=== PATIENT | male | born 1945 | race Caucasian/White ===

== ENCOUNTER → 2016-03-16 | Outpatient (CLI) | payer MEDICARE, OTHER ==
[2016-03-16 10:17] LABS: ABSOLUTE BASOPHILS # (AUTO) 0.1 10^3/uL (0.0-0.2); ABSOLUTE EOSINOPHILS # (AUTO) 0.2 10^3/uL (0.0-0.6); ABSOLUTE LYMPHOCYTES (AUTO) 2.2 10^3/uL (0.5-4.7); ABSOLUTE MONOCYTES (AUTO) 0.7 10^3/uL (0.1-1.4); ABSOLUTE NEUT (AUTO) 4.6 10^3/uL (1.7-8.2); BASOPHILS % (AUTO) 0.8 % (0-2); EOSINOPHILS % (AUTO) 2.5 % (0-6); HEMATOCRIT 45.6 % (37.9-51.0); HEMOGLOBIN 14.5 g/dL (13.5-17.0); HGB HCT DIFFERENCE -2.1; LYMPHOCYTES % (AUTO) 28.1 % (13-45); MEAN CORPUSCULAR HEMOGLOBIN 30.2 pg (27.0-33.4); MEAN CORPUSCULAR HGB CONC 31.8 g/dL (32.0-36.0); MEAN CORPUSCULAR VOLUME 95 fl (80-97); MONOCYTES % (AUTO) 9.2 % (3-13); RED CELL DISTRIBUTION WIDTH 13.9 % (11.5-14.0); SEGMENTED NEUTROPHILS % (AUTO) 59.4 % (42-78); WHITE BLOOD COUNT 7.7 10^3/uL (4.0-10.5)
== END ==
LOC: OD 09:48
PROVIDERS: ATTEND Physician Assistant
DX: Z01.812 Encounter for preprocedural laboratory examination (principal); J44.1 Chronic obstructive pulmonary disease with (acute) exacerbation; R05 Cough
CPT/HCPCS: 36415; 85025

== ENCOUNTER 2016-03-24 14:28 | Emergency (ER) | payer MEDICARE, OTHER ==
--- NOTE | 2016-03-24 15:16 | ER Document Report ---
ED Medical Screen (RME) - General Stated Complaint: BACK PAIN Notes: chronic back pain reffered over by dr. garzon of pain management patient had corticosteroid injections on 03/21 now with severe pain b/l sciatica denies UI/SI, saddle anesthesia I have greeted and performed a rapid initial assessment of this patient. A comprehensive ED assessment and evaluation of the patient, analysis of test results and completion of the medical decision making process will be conducted by additional ED providers. TRAVEL OUTSIDE OF THE [place] IN LAST 30 DAYS: No - Related Data Allergies/Adverse Reactions: cephradine [From Velosef] Allergy (Unknown, Verified 09/16/14 10:47) ibuprofen [Ibuprofen] Allergy (Unknown, Verified 09/16/14 10:47) Influenza Virus Vaccines [Influenza Virus Vaccine] Allergy (Verified 09/16/14 10 :47) Past Medical History - Past Medical History Cardiac Medical History: Reports: Hx Coronary Artery Disease, Hx Heart Attack, Hx Hypercholesterolemia, Hx Hypertension Pulmonary Medical History: Reports: Hx Asthma, Hx COPD Denies: Hx Tuberculosis GI Medical History: Reports: Hx Gastroesophageal Reflux Disease Musculoskeltal Medical History: Reports Hx Musculoskeletal Trauma Psychiatric Medical History: Reports: Hx Depression, Hx Post Traumatic Stress Disorder Traumatic Medical History: Reports: Hx Traumatic Brain Injury Past Surgical History: Reports: Hx Adenoidectomy, Hx Cardiac Surgery - Defib, Hx Herniorrhaphy, Hx Internal Defibrillator - ICD placement, replaced battery x3 , Hx Orthopedic Surgery - Right knee, right hand, right foot, Hx Pacemaker, Hx Tonsillectomy - and adenoids - Immunizations Hx Diphtheria, Pertussis, Tetanus Vaccination: Yes
[2016-03-24 17:23] LABS: ABSOLUTE BASOPHILS # (AUTO) 0.1 10^3/uL (0.0-0.2); ABSOLUTE MONOCYTES (AUTO) 1.2 10^3/uL (0.1-1.4); ABSOLUTE NEUT (AUTO) 6.9 10^3/uL (1.7-8.2); BASOPHILS % (AUTO) 0.6 % (0-2); EOSINOPHILS % (AUTO) 0.1 % (0-6); HEMATOCRIT 44.9 % (37.9-51.0); HEMOGLOBIN 14.9 g/dL (13.5-17.0); HGB HCT DIFFERENCE -0.2; LYMPHOCYTES % (AUTO) 27.2 % (13-45); MEAN CORPUSCULAR HGB CONC 33.1 g/dL (32.0-36.0); MEAN CORPUSCULAR VOLUME 94 fl (80-97); MONOCYTES % (AUTO) 10.6 % (3-13); RED CELL DISTRIBUTION WIDTH 14.5 % (11.5-14.0); SEGMENTED NEUTROPHILS % (AUTO) 61.5 % (42-78); WHITE BLOOD COUNT 11.2 10^3/uL (4.0-10.5)
[2016-03-24 18:18] LABS: ALANINE AMINOTRANSFERASE 51 U/L (21-72); ALBUMIN 4.6 g/dL (3.5-5.0); ALKALINE PHOSPHATASE 61 U/L (38-126); ANION GAP 14 (5-19); ASPARTATE AMINO TRANSFERASE 36 U/L (17-59); BILIRUBIN,TOTAL 0.5 mg/dL (0.2-1.3); BLOOD UREA NITROGEN 34 mg/dL (7-20); CALCIUM 9.7 mg/dL (8.4-10.2); CARBON DIOXIDE 21 mmol/L (22-30); CHLORIDE 105 mmol/L (98-107); CREATININE RESULT 1.36 mg/dL (0.52-1.25); GLUCOSE 95 mg/dL (75-110); POTASSIUM 4.7 mmol/L (3.6-5.0); TOTAL PROTEIN 7.7 g/dL (6.3-8.2)
== END 2016-03-24 20:00 | disposition left against medical advice (07) ==
LOC: ER 14:28
DX: M54.9 Dorsalgia, unspecified (principal); G89.29 Other chronic pain; I25.10 Atherosclerotic heart disease of native coronary artery without angina pectoris; I25.2 Old myocardial infarction; E78.00 Pure hypercholesterolemia, unspecified; J45.909 Unspecified asthma, uncomplicated; J44.9 Chronic obstructive pulmonary disease, unspecified; Z95.810 Presence of automatic (implantable) cardiac defibrillator
CPT/HCPCS: 36415; 72132; 80053; 85025; 99281

== ENCOUNTER → 2016-04-13 | Outpatient (CLI) | payer MEDICARE, OTHER ==
[2016-04-13 12:57] LABS: ALANINE AMINOTRANSFERASE 39 U/L (21-72); ALBUMIN 4.3 g/dL (3.5-5.0); ALKALINE PHOSPHATASE 73 U/L (38-126); ANION GAP 10 (5-19); ASPARTATE AMINO TRANSFERASE 36 U/L (17-59); BILIRUBIN,TOTAL 0.6 mg/dL (0.2-1.3); BLOOD UREA NITROGEN 28 mg/dL (7-20); CALCIUM 9.8 mg/dL (8.4-10.2); CARBON DIOXIDE 25 mmol/L (22-30); CHLORIDE 104 mmol/L (98-107); CREATININE RESULT 1.34 mg/dL (0.52-1.25); GLUCOSE 84 mg/dL (75-110); POTASSIUM 4.7 mmol/L (3.6-5.0); SODIUM 139.4 mmol/L (137-145); TOTAL PROTEIN 7.2 g/dL (6.3-8.2)
== END ==
LOC: OD 11:16
PROVIDERS: ATTEND Physician Assistant
DX: R25.2 Cramp and spasm (principal); M79.1 Myalgia
CPT/HCPCS: 36415; 80053

== ENCOUNTER 2016-06-05 14:42 | Emergency (ER) | payer MEDICARE, OTHER ==
[2016-06-05] MEDS ORDERED: ALBUTEROL SULFATE 0.083% NEB 2.5 MG/3 ML AMPUL NEB ONE ×2 (15:21→17:21)
[2016-06-05] MEDS ORDERED: METHYLPREDNISOLONE INJ 125 MG/2 ML SDV IV ONE (15:21)
[2016-06-05] MEDS ORDERED: IPRATROPIUM/ALBUTEROL 0.5-2.5 MG/3 ML AMPUL NEB ONE ×2 (15:21→17:21)
--- NOTE | 2016-06-05 15:24 | ER Document Report ---
ED Respiratory Problem - General Stated Complaint: DIFFICULTY BREATHING Time seen by provider: 15:21 Mode of Arrival: Medic Information source: Patient TRAVEL OUTSIDE OF THE [place] IN LAST 30 DAYS: No - HPI Patient complains to provider of: Cough, Short of breath Onset: Other - 3 weeks, worsening over the past 3 days Duration: Worse/persistent Quality of pain: Achy Severity: Moderate Pain Level: 2 Context: Hx asthma, Hx COPD Short of Breath: Moderate Chest pain/discomfort: Tightness Cough: Productive Sputum amount: Small Sputum color: Yellow Sputum consistency: Mucoid At home treatment: Bronchodilators EMS treatments: Bronchodilators Associated symptoms: Congestion, Cough, Difficulty breathing, Fever, Short of breath, Wheezing Similar symptoms previously: Yes Recently seen / treated by doctor: No Notes: Patient is a 70-year-old male with history of asthma/COPD, who presents to the emergency room complaining of difficulty breathing with chest tightness and productive cough that's been present over the past 3 weeks but worsening over the past 3 days, cough is productive of grayish yellowish colored phlegm, with occasional red streaking, he reports a fever at the beginning of his illness but not currently, he denies any sick contacts, no recent antibiotics or other medications for treatment of symptoms, will repeat has an albuterol inhaler which she has been using at home intermittently, which gives him mild relief of symptoms but he is using it every 30 minutes to hour, he has not been known steroids recently - Related Data Allergies/Adverse Reactions: cephradine [From Velosef] Allergy (Unknown, Verified 09/16/14 10:47) ibuprofen [Ibuprofen] Allergy (Unknown, Verified 09/16/14 10:47) Influenza Virus Vaccines [Influenza Virus Vaccine] Allergy (Verified 09/16/14 10 :47) Past Medical History - General Information source: Patient - Social History Smoking Status: Never Smoker Family History: None - Past Medical History Cardiac Medical History: Reports: Hx Coronary Artery Disease, Hx Heart Attack, Hx Hypercholesterolemia, Hx Hypertension Pulmonary Medical History: Reports: Hx Asthma, Hx COPD Denies: Hx Tuberculosis Renal/ Medical History: Denies: Hx Peritoneal Dialysis GI Medical History: Reports: Hx Gastroesophageal Reflux Disease Musculoskeltal Medical History: Reports Hx Musculoskeletal Trauma Psychiatric Medical History: Reports: Hx Depression, Hx Post Traumatic Stress Disorder Traumatic Medical History: Reports: Hx Traumatic Brain Injury Past Surgical History: Reports: Hx Adenoidectomy, Hx Cardiac Surgery - Defib, Hx Herniorrhaphy, Hx Internal Defibrillator - ICD placement, replaced battery x3 , Hx Orthopedic Surgery - Right knee, right hand, right foot, Hx Pacemaker, Hx Tonsillectomy - and adenoids - Immunizations Hx Diphtheria, Pertussis, Tetanus Vaccination: Yes Review of Systems - Review of Systems Constitutional: Fever EENT: No symptoms reported Cardiovascular: No symptoms reported Respiratory: See HPI Gastrointestinal: No symptoms reported Genitourinary: No symptoms reported Male Genitourinary: No symptoms reported Musculoskeletal: No symptoms reported Skin: No symptoms reported Hematologic/Lymphatic: No symptoms reported Neurological/Psychological: No symptoms reported -: Yes All other systems reviewed and negative Physical Exam - Vital signs Vitals: Resp Pulse Ox 28 H 95 06/05/16 15:15 06/05/16 15:15 Interpretation: Tachycardic - General General appearance: Appears well, Alert - HEENT Head: Normocephalic, Atraumatic Eyes: Normal Pupils: PERRL - Respiratory Respiratory status: No respiratory distress Chest status: Nontender Breath sounds: Productive cough, Wheezing Chest palpation: Normal - Cardiovascular Rhythm: Irregularly irregular, Tachycardia Heart sounds: Normal auscultation Murmur: No - Abdominal Inspection: Normal, Obese Distension: No distension Bowel sounds: Normal Tenderness: Nontender Organomegaly: No organomegaly - Back Back: Normal, Nontender - Extremities General upper extremity: Normal inspection, Nontender, Normal color, Normal ROM , Normal temperature General lower extremity: Normal inspection, Nontender, Normal color, Normal ROM , Normal temperature, Normal weight bearing. No: [place]'s sign - Neurological Neuro grossly intact: Yes Cognition: Normal Orientation: AAOx4 [place] Coma Scale Eye Opening: Spontaneous [place] Coma Scale Verbal: Oriented [place] Coma Scale Motor: Obeys Commands [place] Coma Scale Total: 15 Speech: Normal Motor strength normal: LUE, RUE, LLE, RLE Sensory: Normal - Psychological Associated symptoms: Normal affect, Normal mood - Skin Skin Temperature: Warm Skin Moisture: Dry Skin Color: Normal Course - Re-evaluation Re-evalutation: 06/05/16 18:14 Patient reports feeling much better and wants to go home, lab and imaging findings were discussed with patient at bedside which are consistent with bilateral pneumonia, he was started on antibiotics and steroids, I did discuss the possibility of admission with patient, however he reports that he feels much better and would much rather go home and try antibiotics with steroids and breathing treatments, he was advised to follow-up with his primary care provider in the next 2-3 days, he states he has plenty of albuterol nebulizer treatments at home, he was advised to use these every 4-6 hours, return if symptoms worsen, patient acknowledges understanding and agreement with this plan - Vital Signs Vital signs: Temp Pulse Resp BP Pulse Ox 97.8 F 52 L 20 160/84 H 100 06/05/16 15:52 06/05/16 15:52 06/05/16 17:00 06/05/16 16:01 06/05/16 17:00 - Laboratory Result Diagrams: 06/05/16 15:10 06/05/16 15:10 Laboratory results interpreted by me: 06/05/16 06/05/16 15:10 15:10 WBC 12.6 H RBC 4.31 L RDW 14.6 H Plt Count 135 L Seg Neutrophils % 78.9 H Absolute Neutrophils 10.0 H Glucose 113 H - Diagnostic Test Radiology reviewed: Image reviewed, Reports reviewed - EKG Interpretation by Me EKG shows normal: Sinus rhythm Rate: Normal Rhythm: NSR, PVC's Mounds/QRS: RBBB When compared to previous EKG there are: No significant change Discharge - Discharge Clinical Impression: Pneumonia Qualifiers: Pneumonia type: due to unspecified organism Laterality: bilateral Lung location : lower lobe of lung Qualified Code(s): J18.9 - Pneumonia, unspecified organism Condition: Stable Disposition: HOME, SELF-CARE Instructions: Pneumonia (OM), Chronic Obstructive Lung Disease (OM) Additional Instructions: Follow up with your primary care provider in one to 2 days. Return to the emergency room immediately if symptoms worsen or any additional concerns. Prescriptions: Levofloxacin [Levaquin 750 mg Tablet] 750 mg PO DAILY #5 tablet Prednisone 40 mg PO DAILY #8 tablet
[2016-06-05 15:39] LABS: ABSOLUTE EOSINOPHILS # (AUTO) 0.1 10^3/uL (0.0-0.6); ABSOLUTE LYMPHOCYTES (AUTO) 1.7 10^3/uL (0.5-4.7); ABSOLUTE MONOCYTES (AUTO) 0.9 10^3/uL (0.1-1.4); BASOPHILS % (AUTO) 0.3 % (0-2); EOSINOPHILS % (AUTO) 0.4 % (0-6); HEMATOCRIT 40.6 % (37.9-51.0); HEMOGLOBIN 13.7 g/dL (13.5-17.0); HGB HCT DIFFERENCE 0.5; LYMPHOCYTES % (AUTO) 13.3 % (13-45); MEAN CORPUSCULAR HEMOGLOBIN 31.7 pg (27.0-33.4); MEAN CORPUSCULAR HGB CONC 33.7 g/dL (32.0-36.0); MEAN CORPUSCULAR VOLUME 94 fl (80-97); MONOCYTES % (AUTO) 7.1 % (3-13); RED BLOOD COUNT 4.31 10^6/uL (4.35-5.55); RED CELL DISTRIBUTION WIDTH 14.6 % (11.5-14.0); SEGMENTED NEUTROPHILS % (AUTO) 78.9 % (42-78); WHITE BLOOD COUNT 12.6 10^3/uL (4.0-10.5)
[2016-06-05 15:57] LABS: ALANINE AMINOTRANSFERASE 71 U/L (21-72); ALBUMIN 3.5 g/dL (3.5-5.0); ALKALINE PHOSPHATASE 99 U/L (38-126); ANION GAP 11 (5-19); ASPARTATE AMINO TRANSFERASE 48 U/L (17-59); BILIRUBIN,DIRECT 0.1 mg/dL (0.0-0.4); BILIRUBIN,TOTAL 0.8 mg/dL (0.2-1.3); BLOOD UREA NITROGEN 12 mg/dL (7-20); CALCIUM 9.1 mg/dL (8.4-10.2); CARBON DIOXIDE 30 mmol/L (22-30); CHLORIDE 103 mmol/L (98-107); CREATINE KINASE 56 U/L (55-170); CREATININE RESULT 0.82 mg/dL (0.52-1.25); GLUCOSE 113 mg/dL (75-110); POTASSIUM 4.3 mmol/L (3.6-5.0); SODIUM 144.1 mmol/L (137-145); TOTAL PROTEIN 6.4 g/dL (6.3-8.2)
[2016-06-05 16:08] LABS: CREATINE KINASE MB 0.82 ng/mL (<4.55)
[2016-06-05 16:09] LABS: TROPONIN I < 0.012 ng/mL
[2016-06-05] MEDS ORDERED: LEVOFLOXACIN 750 MG TABLET PO ONE (16:29)
[2016-06-05 17:56] VITALS: BP 160/84
--- NOTE | 2016-06-05 19:03 | EKG REPORT ---
SEVERITY:- ABNORMAL ECG - SINUS RHYTHM MULTIFORM VENTRICULAR PREMATURE COMPLEXES PROBABLE LEFT ATRIAL ABNORMALITY RIGHT BUNDLE BRANCH BLOCK APCs : Confirmed by: Radha Iqbal 05-Jun-2016 19:02:02
== END 2016-06-05 18:51 | disposition home or self-care (01) ==
LOC: ER 14:42
DX: J18.9 Pneumonia, unspecified organism (principal); R00.0 Tachycardia, unspecified; E66.9 Obesity, unspecified; I25.10 Atherosclerotic heart disease of native coronary artery without angina pectoris; E78.00 Pure hypercholesterolemia, unspecified; I10 Essential (primary) hypertension; K21.9 Gastro-esophageal reflux disease without esophagitis; Z88.6 Allergy status to analgesic agent; Z88.7 Allergy status to serum and vaccine; Z87.820 Personal history of traumatic brain injury; Z95.810 Presence of automatic (implantable) cardiac defibrillator; I25.2 Old myocardial infarction
CPT/HCPCS: 93005; 94640 ×2; 99285; 96374; 36415; 87040; 82553; 82550; 85025; 80053; 84484; 71020; 93010; J2930; A9270 ×3; J7620

== ENCOUNTER 2016-06-07 18:31 | Inpatient (IN) | payer MEDICARE, OTHER ==
[2016-06-07] MEDS ORDERED: MAGNESIUM SULFATE/D5W 100 ML IV PRN (19:36)
[2016-06-07] MEDS ORDERED: IPRATROPIUM/ALBUTEROL 0.5-2.5 MG/3 ML AMPUL NEB ONE ×3 (19:36)
[2016-06-07] MEDS ORDERED: METHYLPREDNISOLONE INJ 125 MG/2 ML SDV IV ONE (19:37)
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
[2016-06-07 19:48] LABS: HEMATOCRIT 38.8 % (37.9-51.0); HGB HCT DIFFERENCE 0.2; MEAN CORPUSCULAR HEMOGLOBIN 31.7 pg (27.0-33.4); MEAN CORPUSCULAR HGB CONC 33.4 g/dL (32.0-36.0); MEAN CORPUSCULAR VOLUME 95 fl (80-97); RED CELL DISTRIBUTION WIDTH 15.1 % (11.5-14.0); WHITE BLOOD COUNT 12.8 10^3/uL (4.0-10.5)
[2016-06-07 19:52] LABS: ALANINE AMINOTRANSFERASE 50 U/L (21-72); ALBUMIN 3.4 g/dL (3.5-5.0); ALKALINE PHOSPHATASE 73 U/L (38-126); ANION GAP 14 (5-19); ASPARTATE AMINO TRANSFERASE 29 U/L (17-59); BILIRUBIN,DIRECT 0.3 mg/dL (0.0-0.4); BILIRUBIN,TOTAL 0.4 mg/dL (0.2-1.3); BLOOD UREA NITROGEN 25 mg/dL (7-20); CARBON DIOXIDE 25 mmol/L (22-30); CHLORIDE 108 mmol/L (98-107); CREATINE KINASE 90 U/L (55-170); CREATININE RESULT 1.31 mg/dL (0.52-1.25); GLUCOSE 97 mg/dL (75-110); POTASSIUM 4.5 mmol/L (3.6-5.0); SODIUM 146.9 mmol/L (137-145); TOTAL PROTEIN 6.3 g/dL (6.3-8.2)
[2016-06-07 20:03] LABS: CREATINE KINASE MB 1.81 ng/mL (<4.55)
[2016-06-07 20:08] LABS: TROPONIN I < 0.012 ng/mL
[2016-06-07 20:18] LABS: BASOPHILS % (MANUAL) 0 % (0-2); EOSINOPHILS % (MANUAL) 0 % (0-6); LYMPHOCYTES % (MANUAL) 14 % (13-45); TOTAL CELLS COUNTED 100
[2016-06-07 20:20] LABS: OVALOCYTES SLIGHT; POIKILOCYTOSIS SLIGHT
[2016-06-07 20:21] LABS: ANISOCYTOSIS SLIGHT
[2016-06-07] MEDS ORDERED: PIPERACILLIN/TAZOBACTAM 4.5 GM VIAL IV ONE (20:57)
[2016-06-07 21:01] LABS: VENOUS BLOOD BASE EXCESS -0.4 mmol/L; VENOUS BLOOD HCO3 24.9 mmol/L (20-32); VENOUS BLOOD PCO2 43.2 mmHg (35-63); VENOUS BLOOD PH 7.38 (7.30-7.42)
[2016-06-07] MEDS ORDERED: GLUCAGON,HUMAN RECOMB 1 MG INJ IM PRN (22:53)
[2016-06-07] MEDS ORDERED: DEXTROSE 40% GEL 15 GM TUBE PO PRN ×2 (22:53)
[2016-06-07] MEDS ORDERED: DEXTROSE 50%-WATER 25 GM/50 ML DISP.SYRIN IV PRN ×2 (22:53)
[2016-06-07] MEDS ORDERED: ALBUTEROL SULFATE 0.083% NEB 2.5 MG/3 ML AMPUL NEB PRN (22:54)
[2016-06-07] MEDS ORDERED: GUAIFENESIN SYRP 200 MG/10 ML UDC PO PRN (22:54)
[2016-06-07] MEDS ORDERED: ACETAMINOPHEN 325 MG TABLET PO PRN (22:54)
[2016-06-07] MEDS ORDERED: PHARMACY COMMUNICATION ORDER MC SCH (23:15)
--- NOTE | 2016-06-07 23:31 | PDOC H&P ---
History of Present Illness Admission Date/PCP: 06/07/16 21:41 pcp [facility] Patient complains of: difficulty breathing History of Present Illness: SVETLANA DUFF JR is a 70 year old morbidly obese male with underlying hypertension, posttraumatic stress disorder, history of traumatic brain injury, mild anxiety and depression, without suicidal or homicidal ideation, history of TIA, arthritis, history of myocardial infarction and congestive heart failure, status post AICD implant, along with underlying asthma and daily at bedtime 2 L per nasal cannula O2 dependent COPD who presents to the emergency room for the second time in approximately 48 hours for evaluation of above complaint. discharged home reportedly on prednisone and Levaquin 2 days ago, which he reportedly took as prescribed. However, despite taking his medications, along with more frequent nebulizer treatments, breathing difficulties slowly progressed, in particular with much of any exertion. Cough productive of yellow -green sputum. No fever or chills. Nausea with small amount of emesis 2 days ago; none since then. No diarrhea or dysuria. No chest pain. Mild abdominal discomfort only with the cough. Was in a fair amount of respiratory distress upon initial presentation to the emergency room. Much improved on BiPAP. Has had his Pneumovax; allergic to flu vaccination. Patient has been discussed with emergency room nurse practitioner who evaluated the patient. Documentation made on initial emergency room paperwork of concern for possible suicidal ideation. However, patient adamantly denies this to both myself and the emergency room nurse practitioner. Said he only wanted to be "left alone." Again, adamantly denies suicidal or homicidal ideation now or earlier today. Laboratory results are listed in [employer] and are reviewed. X-ray summary results are listed below, with full report(s) reviewed. . EKG reviewed. And compared to a prior tracing from 2 nights ago. Social history/personal habits: . Lives with . Retired. No tobacco use since the 1970s. No alcohol or illicit drug use. Has daughter. Allergies/adverse reactions are listed in [employer] and are reviewed. Home medications Home medications initially autopopulated into [employer] may not accurately reflect patient's true medications, dosages, and/or frequencies. Medication bottles reviewed and discussed with patient. environmental health technician to reconcile medications. REVIEW OF SYSTEMS: Constitutional: No fever or chills. Eyes: Wears glasses. ENT: No swallowing problems or complaints. Partial hearing loss. No hearing problems or complaints. Pulmonary: See history and present illness. Cardiovascular: No current complaints, including chest pain. Chronic intermittent mild swelling of both lower extremities, right greater than left. Gastrointestinal: See history and present illness. Skin: No current complaints, including rashes. Hematologic: Easy bruising. Neurologic: Chronic peripheral neuropathy, right lower extremity. Musculoskeletal: Joint pain from arthritis. Psychiatric: Mild Anxiety depression; denies suicidal or homicidal ideation. Endocrine: No current complaints, including polyuria. Genitourinary: No current complaints, including dysuria. PHYSICAL EXAMINATION: 6 feet tall. 136.1 kg. BMI 40.7 kg/m. Blood pressure 143/68. Pulse 92 and regular. 97% saturation on BiPAP 12/6, 30% FiO2. Respirations are 24 and unlabored. Temperature not recorded on chart; skin feels normothermic. Morbidly obese otherwise well-developed male who appears a fair number of years younger than his stated age. Pleasant awake alert and cooperative. No obvious distress other than somewhat anxious. Skin is warm and dry. No grossly obvious evidence of rash in areas of skin examined. No subcutaneous nodules palpated. Extensive upper extremity tattoos. ENT: Hearing grossly normal to normal conversation. Tongue midline on protrusion pink and slightly tacky.. Pierced left eyebrow. Eyes: No scleral icterus. Pupils equal and reactive to light at 4 mm. [place] conjunctivae. Neck is supple and nontender to gentle active range of motion and palpation. Midline trachea. No palpable thyroid nodule mass enlargement or tenderness. Lymphatic: No palpable cervical or clavicular nodes. Neck and lymphatic exams limited by patient body habitus. Psychiatric: Reasonable insight into acute and chronic medical issues. Oriented to time location and why here. Lungs: Auscultation reveals equal breath sounds bilaterally. No use of accessory respiratory muscles. Mild bilateral brief early expiratory wheezing. Patient states he normally wheezes virtually every day. Cardiovascular: Heart regular rate and rhythm, without gallop murmur or rub. No carotid or abdominal aortic bruits. Mild bilateral slightly pitting ankle and pedal edema, slightly more noticeable on the right. palpable dorsalis pedis pulses. Abdomen: soft, obese, nontender with positive bowel sounds. Unable to adequately evaluate abdomen for masses or organomegaly due to body habitus. Extremities: Feet are warm and dry. No calf tenderness to compression. No grossly obvious visual evidence of calf swelling. Gentle manipulation of lower extremities fails to reveal any obvious evidence of injury or instability to knees hips or ankles. Neurologic: Moves upper extremities grossly normally. Patellar reflexes absent. Absent Babinski. Light touch is intact at left foot, slightly decreased, right foot; chronic finding, per patient. Dorsiflexion and plantarflexion of feet 5 / 5 and symmetric. E Past Medical History Cardiac Medical History: Reports: Congestive Heart Failure, Coronary Artery Disease, Myocardial Infarction, Hypertension Denies: DVT, Hyperlipidema, Pulmonary Embolism Pulmonary Medical History: Reports: Asthma, Chronic Obstructive Pulmonary Disease (COPD) Denies: Sleep Apnea, Tuberculosis Neurological Medical History: Reports: Other - History of traumatic brain injury. Denies: Hemorrhagic CVA, Ischemic CVA, Seizures Endocrine Medical History: Denies: Diabetes Mellitus Type 1, Diabetes Mellitus Type 2, Hyperthyroidism, Hypothyroidism Renal/ Medical History: Reports: Chronic Kidney Disease GI Medical History: Denies: Cirrhosis, Gastroesophageal Reflux Disease, Hepatitis, Peptic Ulcer Disease Musculoskeltal Medical History: Reports: Arthritis Skin Medical History: Reports: None Psychiatric Medical History: Reports: Depression, General Anxiety Disorder, Post Traumatic Stress Disorder Denies: Alcohol Dependency, Substance Abuse, Tobacco Dependency Traumatic Medical History: Reports: Traumatic Brain Injury Hematology: Reports: None Infectious Medical History: Denies: Clostridium Difficile, Hepatitis B, Hepatitis C, Methicillin- Resistant Staph Aureus Past Surgical History Past Surgical History: Reports: Herniorrhaphy, Internal Defibrillator - ICD placement, replaced battery x3, Orthopedic Surgery - Right knee, right hand, right foot, Pacemaker, Tonsillectomy - and adenoids Social History Information Source: Patient, Emergency Med Personnel, [facility] Records Lives with: Spouse/Significant other Smoking Status: Former Smoker Frequency of Alcohol Use: None Hx Recreational Drug Use: No Drugs: None Hx Prescription Drug Abuse: No - Advance Directive Resuscitation Status: Full Code Surrogate healthcare decision maker:: Family History Family History: None, COPD, Malignancy Parental Family History Reviewed: Yes - mother of ovarian cancer. Father emphysema. Children Family History Reviewed: Yes - Daughter in her sleep after seizure. Sibling(s) Family History Reviewed.: Yes - Brother with multiple medical problems, at young age. Sister of unknown malignancy. Medication/Allergy Home Medications: Metoprolol Tartrate 50 mg PO BID 11/07/11 Temazepam 30 mg PO HSP PRN 09/16/14 Levofloxacin [Levaquin 750 mg Tablet] 750 mg PO DAILY #5 tablet 06/05/16 Prednisone 40 mg PO DAILY #8 tablet 06/05/16 Albuterol Sulfate [Ventolin HFA MDI 18 GM] 2 puff IH Q4HP PRN 06/08/16 Budesonide/Formoterol Fumarate [Symbicort HFA 160-4.5 mcg Inhaler 6 gm] 2 puff IH BID 06/08/16 Cyclobenzaprine HCl 10 mg PO TID 06/08/16 Gabapentin [Neurontin] 600 mg PO TID 06/08/16 Naproxen 500 mg PO BID 06/08/16 Oxycodone HCl [Oxycodone HCl 10 MG Tablet] 20 mg PO 5XDP PRN 06/08/16 Allergies/Adverse Reactions: cephradine [From Velose[place]] Allergy (Unknown, Verified 06/07/16 22:51) ibuprofen [Ibuprofen] Allergy (Unknown, Verified 06/07/16 22:51) Influenza Virus Vaccines [Influenza Virus Vaccine] Allergy (Verified 06/07/16 20 :13) Physical Exam Vital Signs: Temp Pulse Resp BP Pulse Ox 17 138/80 H 96 06/07/16 20:56 06/07/16 21:21 06/07/16 21:21 Results Impressions: Chest X-Ray 06/07/16 19:35 IMPRESSION: NO ACUTE RADIOGRAPHIC FINDING IN THE CHEST. INTERVAL RESOLUTION PREVIOUS IDENTIFIED AIRSPACE DISEASE. Assessment & Plan - Diagnosis (1) Morbid obesity with BMI of 40.0-44.9, adult Is this a current diagnosis for this admission?: Yes (2) Hypernatremia Is this a current diagnosis for this admission?: YesPlan: Half-normal saline. Follow-up chemistry. (3) Acute and chronic respiratory failure with hypercapnia Is this a current diagnosis for this admission?: YesPlan: Patient will be admitted under COPD exacerbation and asthma exacerbation protocol. Incentive spirometry twice a day. Scheduled DuoNeb's. PRN albuterol nebs Solu-Medrol Prevacid for gastritis prophylaxis. Antibiotics will consist of Zosyn and intravenous Zithromax.. I strongly encouraged patient to notify staff should patient feel that his breathing is worsening. Patient is a full code. I have strongly encouraged patient not to get out of bed without notifying staff , , to avoid a fall with injury. Knee high SCDs for DVT prophylaxis, along with subcutaneous heparin. Impression and plans were discussed with patient, who concurs. Time spent in evaluation and management of patient: 67 minutes. (4) Asthma exacerbation Is this a current diagnosis for this admission?: Yes (5) Chronic kidney disease, stage III (moderate) Is this a current diagnosis for this admission?: YesPlan: Follow-up chemistry. (6) PTSD (post-traumatic stress disorder) Is this a current diagnosis for this admission?: YesPlan: Resume home medications as appropriate once these have been determined and reviewed. (7) COPD exacerbation Is this a current diagnosis for this admission?: Yes - Inpatient Certification Based on my medical assessment, after consideration of the patient's comorbidities, presenting symptoms, or acuity I expect that the services needed warrant INPATIENT care.: Yes I certify that my determination is in accordance with my understanding of Medicare's requirements for reasonable and necessary INPATIENT services [42 CFR 412.3e].: Yes Medical Necessity: Need Close Monitoring Due to Risk of Patient Decompensation, Need For IV Fluids, Need For Continuous Telemetry Monitoring, Need for Nebulizer Therapy and Monitoring of Response, Need for IV Antibiotics, Risk of Complication if Not Cared For in Hospital, Risk of Diagnosis Which Will Require Inpatient Eval/Care/Monitoring Post Hospital Care: D/C or Transfer Summary
[2016-06-07 23:43] LABS: ADD ON TESTING BLD IN LAB ACKNOWLEDGE
[2016-06-07] MEDS ORDERED: AZITHROMYCIN INJ 500 MG VIAL IV PRN (23:55)
[2016-06-08] MEDS ORDERED: AZITHROMYCIN 500 MG in DEXTROSE 5%-WATER 250 ML IV ONE ×2
[2016-06-08] MEDS ORDERED: PIPERACILLIN/TAZOBACTAM 4.5 GM VIAL IV PRN (00:10)
[2016-06-08 01:12] LABS: VENOUS BLOOD HCO3 23.6 mmol/L (20-32); VENOUS BLOOD PCO2 39.1 mmHg (35-63); VENOUS BLOOD PH 7.4 (7.30-7.42)
[2016-06-08] MEDS: 1/2 NORMAL SALINE 1,000 ML IV PRN ×3 (01:23→21:27)
[2016-06-08] MEDS ORDERED: METHYLPREDNISOLONE SOD SUCC IV SCH (02:00)
[2016-06-08] MEDS ORDERED: METHYLPREDNISOLONE INJ 125 MG/2 ML SDV INJ PRN (02:00)
[2016-06-08] MEDS ORDERED: WATER IV SCH (02:00)
[2016-06-08] MEDS ORDERED: DEXTROSE 5% IV SCH (02:00)
[2016-06-08] MEDS ORDERED: PIPERACILLIN/TAZOBACTAM 4.5 GM VIAL IV ONE (02:57)
[2016-06-08] MEDS: PIPERACILLIN SODIUM/TAZOBACTAM 4.5 GM in NORMAL SALINE 100 ML IV SCH ×4 (03:17→22:13)
[2016-06-08] MEDS: HEPARIN SOD (PORCINE) 5,000 UNIT/ML 1 ML SYRINGE SUBCUT SCH ×3 (05:26→21:18)
[2016-06-08] MEDS: LANSOPRAZOLE 30 MG TAB.RAP.DR PO SCH ×2 (05:26→17:01)
[2016-06-08 07:20] LABS: HEMATOCRIT 41.8 % (37.9-51.0); HGB HCT DIFFERENCE 0.2; MEAN CORPUSCULAR HEMOGLOBIN 31.9 pg (27.0-33.4); MEAN CORPUSCULAR HGB CONC 33.4 g/dL (32.0-36.0); MEAN CORPUSCULAR VOLUME 95 fl (80-97); RED BLOOD COUNT 4.38 10^6/uL (4.35-5.55); RED CELL DISTRIBUTION WIDTH 14.9 % (11.5-14.0); WHITE BLOOD COUNT 10.6 10^3/uL (4.0-10.5)
[2016-06-08 07:38] LABS: ANION GAP 13 (5-19); BLOOD UREA NITROGEN 24 mg/dL (7-20); CARBON DIOXIDE 27 mmol/L (22-30); CHLORIDE 104 mmol/L (98-107); CREATININE RESULT 1.08 mg/dL (0.52-1.25); GLUCOSE 137 mg/dL (75-110); POTASSIUM 4.7 mmol/L (3.6-5.0); SODIUM 143.7 mmol/L (137-145)
--- NOTE | 2016-06-08 07:40 | EKG REPORT ---
SEVERITY:- ABNORMAL ECG - SINUS RHYTHM MULTIPLE ATRIAL PREMATURE COMPLEXES RIGHT BUNDLE BRANCH BLOCK : Confirmed by: Silvia Garcia MD 08-Jun-2016 07:39:42
[2016-06-08 08:30] LABS: BAND NEUTROPHILS % (MANUAL) 2 % (3-5); BASOPHILS % (MANUAL) 0 % (0-2); EOSINOPHILS % (MANUAL) 0 % (0-6); LYMPHOCYTES % (MANUAL) 14 % (13-45); POLYCHROMASIA 1+; TOTAL CELLS COUNTED 100; TOXIC GRANULATION SLIGHT
[2016-06-08] MEDS: IPRATROPIUM/ALBUTEROL 0.5-2.5 MG/3 ML AMPUL NEB SCH ×3 (08:36→20:00)
[2016-06-08] MEDS: METHYLPREDNISOLONE INJ 40 MG/1 ML SDV IV SCH ×2 (11:37→17:02)
[2016-06-08] MEDS ORDERED: (PENDING PHARMACY ID) (Oxycodone Hcl [Oxycodone Hcl 10 Mg Tablet] 20 MG) PO PRN (13:53)
[2016-06-08] MEDS ORDERED: (PENDING PHARMACY ID) (Temazepam [Temazepam] 30 MG) PO PRN (13:53)
--- NOTE | 2016-06-08 13:53 | PDOC PROGRESS REPORT ---
Subjective Progress Note for:: 06/08/16 - Subjective:: This is a follow-up visit for COPD exacerbation. Patient states he feels slightly improved today. He thinks that his right lower extremity is slightly larger than his left due to swelling. He denies any current chest pain. Physical Exam Vital Signs: Temp Pulse Resp BP Pulse Ox 97.6 F 86 22 H 156/72 H 97 06/08/16 11:38 06/08/16 11:38 06/08/16 11:38 06/08/16 11:38 06/08/16 11:38 Intake & Output 06/07/16 06/08/16 06/09/16 06:59 06:59 06:59 Intake Total 550 Output Total 1100 Balance -550 Weight 144 kg PHYSICAL EXAM: GENERAL: This is a well-developed well-nourished morbidly obese white male resting in bed no acute distress. HEART: Regular rate and rhythm. No murmurs rubs or gallops. LUNGS: Occasional expiratory wheezes. Largely course especially in the upper lung elizabeth with equal rise and fall of the chest. ABDOMEN: Soft, nontender, nondistended obese with normoactive bowel sounds EXTREMITIES: No clubbing cyanosis. trace edema. 2+ peripheral pulses. NEURO: Awake, alert, oriented x3. Cranial nerves II through XII grossly intact. PSYCH: Normal affect. Results Laboratory Results: 06/08/16 06:40 06/08/16 06:40 06/08/16 06/08/16 06/08/16 01:02 06:40 06:40 WBC 10.6 H RBC 4.38 Hgb 14.0 Hct 41.8 MCV 95 MCH 31.9 MCHC 33.4 RDW 14.9 H Plt Count 182 Seg Neutrophils % Not Reportable Lymphocytes % Not Reportable Monocytes % Not Reportable Eosinophils % Not Reportable Basophils % Not Reportable Absolute Neutrophils Not Reportable Absolute Lymphocytes Not Reportable Absolute Monocytes Not Reportable Absolute Eosinophils Not Reportable Absolute Basophils Not Reportable VBG pH 7.40 VBG pCO2 39.1 VBG HCO3 23.6 VBG Base Excess -1.0 Sodium 143.7 Potassium 4.7 Chloride 104 Carbon Dioxide 27 Anion Gap 13 BUN 24 H Creatinine 1.08 Est GFR ( Amer) > 60 Est GFR (Non-Af Amer) > 60 Glucose 137 H Calcium 9.0 Impressions: Chest X-Ray 06/07/16 19:35 IMPRESSION: NO ACUTE RADIOGRAPHIC FINDING IN THE CHEST. INTERVAL RESOLUTION PREVIOUS IDENTIFIED AIRSPACE DISEASE. Assessment & Plan - Diagnosis (1) Acute and chronic respiratory failure with hypercapnia Plan: Patient feels slightly better. He continues on oxygen at 4-5 L/m. Continue nebulizer treatments as scheduled continue steroids at 40 mg every 8 hours. If he is improved by tomorrow we'll change this to every 12. Continue various home inhalers. (2) COPD exacerbation Plan: Management as per #1 (3) Pneumonia Qualifiers: Pneumonia type: due to unspecified organism Laterality: bilateral Lung location: unspecified part of lung Qualified Code(s): J18.9 - Pneumonia, unspecified organism Plan: Patient states he was recently diagnosed with bilateral pneumonia. X-ray here is clear of infiltrates. Continue azithromycin and Zosyn. Reconsider going back to Levaquin tomorrow. (4) Opiate dependence, continuous Plan: Patient has chronic back pain for which he takes opioids will resume his home medications. (5) Chronic kidney disease, stage III (moderate) Is this a current diagnosis for this admission?: Yes (6) Morbid obesity with BMI of 40.0-44.9, adult Is this a current diagnosis for this admission?: YesPlan: Weight loss through dietary changes. - Time Time Spent with patient: 15-24 minutes - Inpatient Certification Medical Necessity: Need Close Monitoring Due to Risk of Patient Decompensation
[2016-06-08] MEDS ORDERED: TEMAZEPAM 15 MG CAPSULE PO PRN (14:07)
[2016-06-08] MEDS: CYCLOBENZAPRINE HCL 10 MG TABLET PO SCH ×2 (14:18→17:01)
[2016-06-08] MEDS: OXYCODONE HCL IR 5 MG TABLET PO PRN ×2 (14:18→21:22)
[2016-06-08] MEDS: BUDESONIDE/FORMOTEROL 160-4.5 MCG 60 PUFF/6 GM MDI IH SCH (17:01)
[2016-06-08] MEDS: INSULIN LISPRO 100 UNIT/ML 3 ML VIAL SUBCUT PRN (17:16)
[2016-06-08] MEDS ORDERED: METOPROLOL TARTRATE 25 MG TABLET PO SCH (18:00)
[2016-06-08] MEDS: GABAPENTIN 300 MG CAPSULE PO SCH (21:19)
[2016-06-08] MEDS: METOPROLOL TARTRATE 50 MG TABLET PO SCH (21:20)
[2016-06-08] MEDS ORDERED: AZITHROMYCIN 500 MG in DEXTROSE 5%-WATER 250 ML IV SCH (22:00)
[2016-06-09] MEDS: OXYCODONE HCL IR 5 MG TABLET PO PRN ×4 (02:10→19:43)
[2016-06-09] MEDS: METHYLPREDNISOLONE INJ 40 MG/1 ML SDV IV SCH ×4 (02:11→21:19)
[2016-06-09] MEDS: PIPERACILLIN SODIUM/TAZOBACTAM 4.5 GM in NORMAL SALINE 100 ML IV SCH ×2 (02:11→08:19)
[2016-06-09] MEDS: LANSOPRAZOLE 30 MG TAB.RAP.DR PO SCH ×2 (06:18→17:43)
[2016-06-09] MEDS: HEPARIN SOD (PORCINE) 5,000 UNIT/ML 1 ML SYRINGE SUBCUT SCH ×3 (06:18→21:19)
[2016-06-09] MEDS: GABAPENTIN 300 MG CAPSULE PO SCH ×3 (06:18→21:10)
[2016-06-09] MEDS: IPRATROPIUM/ALBUTEROL 0.5-2.5 MG/3 ML AMPUL NEB SCH ×3 (07:38→20:09)
[2016-06-09] MEDS: METOPROLOL TARTRATE 50 MG TABLET PO SCH ×2 (09:19→21:10)
[2016-06-09] MEDS: CYCLOBENZAPRINE HCL 10 MG TABLET PO SCH ×3 (09:19→17:43)
[2016-06-09] MEDS: BUDESONIDE/FORMOTEROL 160-4.5 MCG 60 PUFF/6 GM MDI IH SCH ×2 (09:20→17:43)
[2016-06-09] MEDS ORDERED: LEVOFLOXACIN 500 MG TABLET PO ONE (11:00)
--- NOTE | 2016-06-09 11:01 | PDOC PROGRESS REPORT ---
Subjective Progress Note for:: 06/09/16 Subjective:: This is a follow-up visit for COPD exacerbation. Patient states he feels slightly improved today. No acute events overnight. He has been ambulating around the room and feels slightly short of breath when he overexerts himself. Physical Exam Vital Signs: Temp Pulse Resp BP Pulse Ox 97.5 F 85 16 156/75 H 97 06/09/16 07:21 06/09/16 07:38 06/09/16 07:38 06/09/16 07:21 06/09/16 07:38 Intake & Output 06/08/16 06/09/16 06/10/16 06:59 06:59 06:59 Intake Total 550 3767 Output Total 1100 240 Balance -550 3527 Weight 144 kg 143.8 kg PHYSICAL EXAM: GENERAL: This is a well-developed well-nourished morbidly obese white male resting in bed no acute distress. HEART: Regular rate and rhythm. No murmurs rubs or gallops. LUNGS: Occasional expiratory wheezes. Largely course especially in the upper lung elizabeth with equal rise and fall of the chest. ABDOMEN: Soft, nontender, nondistended obese with normoactive bowel sounds EXTREMITIES: No clubbing cyanosis. trace edema. 2+ peripheral pulses. NEURO: Awake, alert, oriented x3. Cranial nerves II through XII grossly intact. PSYCH: Normal affect. Results Laboratory Results: 06/08/16 06:40 06/08/16 06:40 Impressions: Chest X-Ray 06/07/16 19:35 IMPRESSION: NO ACUTE RADIOGRAPHIC FINDING IN THE CHEST. INTERVAL RESOLUTION PREVIOUS IDENTIFIED AIRSPACE DISEASE. Assessment & Plan - Diagnosis (1) Acute and chronic respiratory failure with hypercapnia Is this a current diagnosis for this admission?: YesPlan: Patient feels slightly better. He continues on oxygen at 2 L/m. Continue nebulizer treatments as scheduled. Continue steroids at 40 mg every 12 hours. Continue various home inhalers. (2) COPD exacerbation Is this a current diagnosis for this admission?: YesPlan: Management as per #1 (3) Pneumonia Qualifiers: Pneumonia type: due to unspecified organism Laterality: bilateral Lung location: unspecified part of lung Qualified Code(s): J18.9 - Pneumonia, unspecified organism Plan: Patient states he was recently diagnosed with bilateral pneumonia. X-ray here is clear of infiltrates. Discontinue azithromycin and Zosyn. Resume Levaquin at 500 by mouth today (4) Opiate dependence, continuous Plan: Patient has chronic back pain for which he takes opioids continue home medications. (5) Chronic kidney disease, stage III (moderate) Plan: Stable (6) Morbid obesity with BMI of 40.0-44.9, adult Is this a current diagnosis for this admission?: YesPlan: Weight loss through dietary changes. - Time Time Spent with patient: 15-24 minutes - Inpatient Certification Medical Necessity: Need Close Monitoring Due to Risk of Patient Decompensation
[2016-06-09] MEDS: INSULIN LISPRO 100 UNIT/ML 3 ML VIAL SUBCUT PRN (18:25)
[2016-06-10] MEDS: METHYLPREDNISOLONE INJ 40 MG/1 ML SDV IV SCH ×3 (02:26→21:37)
[2016-06-10] MEDS: OXYCODONE HCL IR 5 MG TABLET PO PRN ×4 (02:27→20:28)
[2016-06-10] MEDS: HEPARIN SOD (PORCINE) 5,000 UNIT/ML 1 ML SYRINGE SUBCUT SCH ×3 (05:23→21:37)
[2016-06-10] MEDS: LANSOPRAZOLE 30 MG TAB.RAP.DR PO SCH ×2 (05:23→17:05)
[2016-06-10] MEDS: GABAPENTIN 300 MG CAPSULE PO SCH ×3 (05:23→21:37)
[2016-06-10 05:49] LABS: HEMATOCRIT 41.3 % (37.9-51.0); HEMOGLOBIN 13.9 g/dL (13.5-17.0); HGB HCT DIFFERENCE 0.4; MEAN CORPUSCULAR HEMOGLOBIN 31.8 pg (27.0-33.4); MEAN CORPUSCULAR HGB CONC 33.6 g/dL (32.0-36.0); MEAN CORPUSCULAR VOLUME 95 fl (80-97); RED BLOOD COUNT 4.37 10^6/uL (4.35-5.55); RED CELL DISTRIBUTION WIDTH 15.1 % (11.5-14.0); WHITE BLOOD COUNT 10.9 10^3/uL (4.0-10.5)
[2016-06-10 06:03] LABS: ANION GAP 12 (5-19); BLOOD UREA NITROGEN 34 mg/dL (7-20); CALCIUM 9.1 mg/dL (8.4-10.2); CARBON DIOXIDE 27 mmol/L (22-30); CHLORIDE 103 mmol/L (98-107); CREATININE RESULT 1.21 mg/dL (0.52-1.25); GLUCOSE 128 mg/dL (75-110); MAGNESIUM 2.5 mg/dL (1.6-2.3); POTASSIUM 5.1 mmol/L (3.6-5.0); SODIUM 142.2 mmol/L (137-145)
[2016-06-10 07:09] LABS: BAND NEUTROPHILS % (MANUAL) 1 % (3-5); BASOPHILS % (MANUAL) 0 % (0-2); EOSINOPHILS % (MANUAL) 0 % (0-6); LYMPHOCYTES % (MANUAL) 10 % (13-45); TOTAL CELLS COUNTED 100
[2016-06-10 07:10] LABS: ANISOCYTOSIS SLIGHT; HYPOCHROMASIA SLIGHT
[2016-06-10 07:11] LABS: PLATELET CLUMPS PRESENT
[2016-06-10] MEDS: IPRATROPIUM/ALBUTEROL 0.5-2.5 MG/3 ML AMPUL NEB SCH ×3 (08:38→20:10)
[2016-06-10] MEDS: LEVOFLOXACIN 500 MG TABLET PO SCH (09:53)
[2016-06-10] MEDS: METOPROLOL TARTRATE 50 MG TABLET PO SCH ×2 (09:53→21:37)
[2016-06-10] MEDS: BUDESONIDE/FORMOTEROL 160-4.5 MCG 60 PUFF/6 GM MDI IH SCH ×2 (09:54→17:05)
[2016-06-10] MEDS: CYCLOBENZAPRINE HCL 10 MG TABLET PO SCH ×3 (09:54→17:05)
--- NOTE | 2016-06-10 11:00 | PDOC PROGRESS REPORT ---
Subjective Progress Note for:: 06/10/16 Subjective:: This is a follow-up visit for COPD exacerbation. Patient states he feels improved today. No acute events overnight. He has been ambulating around the room and feels that he is doing well with that. Physical Exam Vital Signs: Temp Pulse Resp BP Pulse Ox 97.8 F 88 16 144/72 H 96 06/10/16 08:08 06/10/16 08:38 06/10/16 08:38 06/10/16 08:08 06/10/16 08:38 Intake & Output 06/09/16 06/10/16 06/11/16 06:59 06:59 06:59 Intake Total 3767 1955 Output Total 240 Balance 3527 195 Weight 143.8 kg 142.9 kg PHYSICAL EXAM: GENERAL: This is a well-developed well-nourished morbidly obese white male resting in bed no acute distress. HEART: Regular rate and rhythm. No murmurs rubs or gallops. LUNGS: Clear in the upper lung field slightly diminished at the bases bilaterally with equal rise and fall of the chest. ABDOMEN: Soft, nontender, nondistended obese with normoactive bowel sounds EXTREMITIES: No clubbing cyanosis. trace edema. 2+ peripheral pulses. NEURO: Awake, alert, oriented x3. Cranial nerves II through XII grossly intact. PSYCH: Normal affect. Results Laboratory Results: 06/10/16 04:13 06/10/16 04:13 06/10/16 06/10/16 04:13 04:13 WBC 10.9 H RBC 4.37 Hgb 13.9 Hct 41.3 MCV 95 MCH 31.8 MCHC 33.6 RDW 15.1 H Plt Count 178 Seg Neutrophils % Not Reportable Lymphocytes % Not Reportable Monocytes % Not Reportable Eosinophils % Not Reportable Basophils % Not Reportable Absolute Neutrophils Not Reportable Absolute Lymphocytes Not Reportable Absolute Monocytes Not Reportable Absolute Eosinophils Not Reportable Absolute Basophils Not Reportable Sodium 142.2 Potassium 5.1 H Chloride 103 Carbon Dioxide 27 Anion Gap 12 BUN 34 H Creatinine 1.21 Est GFR ( Amer) > 60 Est GFR (Non-Af Amer) 59 L Glucose 128 H Calcium 9.1 Magnesium 2.5 H Impressions: Chest X-Ray 06/07/16 19:35 IMPRESSION: NO ACUTE RADIOGRAPHIC FINDING IN THE CHEST. INTERVAL RESOLUTION PREVIOUS IDENTIFIED AIRSPACE DISEASE. Assessment & Plan - Diagnosis (1) Acute and chronic respiratory failure with hypercapnia Is this a current diagnosis for this admission?: YesPlan: Patient feels slightly better. He continues on oxygen at 2 L/m. Continue nebulizer treatments as scheduled. Continue steroids at 40 mg every 12 hours. Change to by mouth prednisone in the morning. Continue various home inhalers. (2) COPD exacerbation Is this a current diagnosis for this admission?: YesPlan: Management as per #1 ambulate halls today. (3) Pneumonia Qualifiers: Pneumonia type: due to unspecified organism Laterality: bilateral Lung location: unspecified part of lung Qualified Code(s): J18.9 - Pneumonia, unspecified organism Plan: Patient states he was recently diagnosed with bilateral pneumonia. X-ray here is clear of infiltrates. Discontinue azithromycin and Zosyn. Continue Levaquin at 500 by mouth today (4) Opiate dependence, continuous Plan: Patient has chronic back pain for which he takes opioids continue home medications. (5) Chronic kidney disease, stage III (moderate) Is this a current diagnosis for this admission?: YesPlan: Stable (6) Morbid obesity with BMI of 40.0-44.9, adult Is this a current diagnosis for this admission?: YesPlan: Weight loss through dietary changes. - Time Time Spent with patient: 15-24 minutes - Inpatient Certification Medical Necessity: Need Close Monitoring Due to Risk of Patient Decompensation - Anticipate discharge tomorrow if patient is still doing well.
[2016-06-11] MEDS: OXYCODONE HCL IR 5 MG TABLET PO PRN ×2 (03:09→07:53)
[2016-06-11] MEDS: GABAPENTIN 300 MG CAPSULE PO SCH (05:12)
[2016-06-11] MEDS: HEPARIN SOD (PORCINE) 5,000 UNIT/ML 1 ML SYRINGE SUBCUT SCH (05:12)
[2016-06-11] MEDS: LANSOPRAZOLE 30 MG TAB.RAP.DR PO SCH (05:12)
[2016-06-11] MEDS: IPRATROPIUM/ALBUTEROL 0.5-2.5 MG/3 ML AMPUL NEB SCH ×2 (07:39→13:38)
[2016-06-11 08:15] VITALS: BP 150/83
[2016-06-11] MEDS ORDERED: PREDNISONE 20 MG TABLET PO SCH (10:00)
[2016-06-11] MEDS: CYCLOBENZAPRINE HCL 10 MG TABLET PO SCH (10:11)
[2016-06-11] MEDS: LEVOFLOXACIN 500 MG TABLET PO SCH (10:12)
[2016-06-11] MEDS: METOPROLOL TARTRATE 50 MG TABLET PO SCH (10:12)
[2016-06-11] MEDS: BUDESONIDE/FORMOTEROL 160-4.5 MCG 60 PUFF/6 GM MDI IH SCH (10:13)
--- NOTE | 2016-06-11 10:32 | PDOC DISCHARGE SUMMARY ---
General - Admit/Disc Date/PCP Admission Date/Primary Care Provider: 06/07/16 22:54 - Discharge Diagnosis (1) Acute and chronic respiratory failure with hypercapnia Summary: Patient's symptoms secondary to COPD exacerbation he did well and is being discharged home to continue his Levaquin and on a prednisone taper. To continue his oxygen at night. He does not need to have it during the day unless it is for comfort. [facility]up [facility]-2 weeks (2) COPD exacerbation Summary: Continue prednisone taper and antibiotics. Management as above. (3) Pneumonia Summary: Complete course of antibiotics. For total of 10 days. He already has his outpatient prescription. (4) Opiate dependence, continuous Summary: Resume home medications. (5) Chronic kidney disease, stage III (moderate) Summary: Stable. Follow-up with [facility] (6) Morbid obesity with BMI of 40.0-44.9, adult Summary: Weight loss through dietary changes and exercise is recommended as tolerated. - Additional Information Resuscitation Status: Full Code Discharge Diet: Cardiac Discharge Activity: Activity As Tolerated Home Medications: Metoprolol Tartrate 50 mg PO BID 11/07/11 Temazepam 30 mg PO HSP PRN 09/16/14 Levofloxacin [Levaquin 750 mg Tablet] 750 mg PO DAILY #5 tablet 06/05/16 Albuterol Sulfate [Ventolin HFA MDI 18 GM] 2 puff IH Q4HP PRN 06/08/16 Budesonide/Formoterol Fumarate [Symbicort HFA 160-4.5 mcg Inhaler 6 gm] 2 puff IH BID 06/08/16 Cyclobenzaprine HCl 10 mg PO TID 06/08/16 Gabapentin [Neurontin] 600 mg PO TID 06/08/16 Naproxen 500 mg PO BID 06/08/16 Oxycodone HCl [Oxycodone HCl 10 MG Tablet] 20 mg PO 5XDP PRN 06/08/16 Guaifenesin [Robitussin Syrup 200 mg/10 ml Ud Cup] 200 mg PO Q4HP PRN udc 06/11 Prednisone [Deltasone 20 mg Tablet] 40 mg PO ASDIR #15 tablet 06/11/16 History of Present Illness History of Present Illness: History of present illness as per Dr. Matias: Patient complains of: difficulty breathing History of Present Illness: SVETLANA DUFF JR is a 70 year old morbidly obese male with underlying hypertension, posttraumatic stress disorder, history of traumatic brain injury, mild anxiety and depression, without suicidal or homicidal ideation, history of TIA, arthritis, history of myocardial infarction and congestive heart failure, status post AICD implant, along with underlying asthma and daily at bedtime 2 L per nasal cannula O2 dependent COPD who presents to the emergency room for the second time in approximately 48 hours for evaluation of above complaint. discharged home reportedly on prednisone and Levaquin 2 days ago, which he reportedly took as prescribed. However, despite taking his medications, along with more frequent nebulizer treatments, breathing difficulties slowly progressed, in particular with much of any exertion. Cough productive of yellow -green sputum. No fever or chills. Nausea with small amount of emesis 2 days ago; none since then. No diarrhea or dysuria. No chest pain. Mild abdominal discomfort only with the cough. Was in a fair amount of respiratory distress upon initial presentation to the emergency room. Much improved on BiPAP. Has had his Pneumovax; allergic to flu vaccination. Patient has been discussed with emergency room nurse practitioner who evaluated the patient. Documentation made on initial emergency room paperwork of concern for possible suicidal ideation. However, patient adamantly denies this to both myself and the emergency room nurse practitioner. Said he only wanted to be "left alone." Again, adamantly denies suicidal or homicidal ideation now or earlier today. Hospital Course Hospital Course: Patient presented in respiratory distress. He was initially placed on bilevel Pap. He did well with this and was off of it by the next morning. His respiratory failure is due to COPD exacerbation and recovering from a recently diagnosed pneumonia. Patient was treated here with nebulizer treatments, IV steroids, antibiotics, and oxygen/bilevel Pap. Overall he did quite well. He was able to ambulate the halls. So without oxygen and on room air he was satting in the low to mid 90s. He is felt to be stable and ready for discharge. [facility] And complete his outpatient antibiotics as well as a new prescription for prednisone taper. Physical Exam Vital Signs: Temp Pulse Resp BP Pulse Ox 97.7 F 41 L 16 150/83 H 92 06/11/16 07:53 06/11/16 07:53 06/11/16 07:53 06/11/16 07:53 04/23/17 07:53 Intake & Output 06/10/16 06/11/16 06/12/16 06:59 06:59 06:59 Intake Total 1955 2086 Balance 1955 2086 Weight 142.9 kg 141.9 kg PHYSICAL EXAM: GENERAL: This is a well-developed well-nourished morbidly obese white male resting in bed no acute distress. HEART: Regular rate and rhythm. No murmurs rubs or gallops. LUNGS: Clear in the upper lung field slightly diminished at the bases bilaterally with equal rise and fall of the chest. ABDOMEN: Soft, nontender, nondistended obese with normoactive bowel sounds EXTREMITIES: No clubbing cyanosis. trace edema at the ankles bilaterally. 2+ peripheral pulses. NEURO: Awake, alert, oriented x3. Cranial nerves II through XII grossly intact. PSYCH: Normal affect. Results Laboratory Results: 06/10/16 04:13 06/10/16 04:13 Impressions: Chest X-Ray 06/07/16 19:35 IMPRESSION: NO ACUTE RADIOGRAPHIC FINDING IN THE CHEST. INTERVAL RESOLUTION PREVIOUS IDENTIFIED AIRSPACE DISEASE. Qualifiers PATEINT BEING DISCHARGED WITH ANY OF THE FOLLOWING DIAGNOSIS?: No Plan Time Spent: Less than 30 Minutes
== END 2016-06-11 12:50 | disposition home or self-care (01) | DRG 190 ==
LOC: ER 18:31 → UNDOADMIN 21:41 → EH 21:41 → 3W 06-08 00:58
PROVIDERS: ADMIT Family Medicine; ATTEND Family Medicine
PROC: 5A09457 Assistance with Respiratory Ventilation, 24-96 Consecutive Hours, Continuous Positive Airway Pressure (ICD-10-PCS; principal; 2016-06-07)
PROC: 3E0F73Z Introduction of Anti-inflammatory into Respiratory Tract, Via Natural or Artificial Opening (ICD-10-PCS; 2016-06-08)
DX: J44.1 Chronic obstructive pulmonary disease with (acute) exacerbation (principal); J96.22 Acute and chronic respiratory failure with hypercapnia; J18.9 Pneumonia, unspecified organism; J45.901 Unspecified asthma with (acute) exacerbation; F11.20 Opioid dependence, uncomplicated; I13.0 Hypertensive heart and chronic kidney disease with heart failure and stage 1 through stage 4 chronic kidney disease, or unspecified chronic kidney disease; Z68.41 Body mass index [BMI] 40.0-44.9, adult; E87.0 Hyperosmolality and hypernatremia; N18.3 Chronic kidney disease, stage 3 (moderate); I50.9 Heart failure, unspecified; E66.01 Morbid (severe) obesity due to excess calories; F43.10 Post-traumatic stress disorder, unspecified; F41.1 Generalized anxiety disorder; F32.9 Major depressive disorder, single episode, unspecified; M19.90 Unspecified osteoarthritis, unspecified site; I25.10 Atherosclerotic heart disease of native coronary artery without angina pectoris; I25.2 Old myocardial infarction; Z79.899 Other long term (current) drug therapy; Z87.891 Personal history of nicotine dependence; Z87.820 Personal history of traumatic brain injury; Z86.73 Personal history of transient ischemic attack (TIA), and cerebral infarction without residual deficits; Z99.81 Dependence on supplemental oxygen; Z95.810 Presence of automatic (implantable) cardiac defibrillator; Z88.7 Allergy status to serum and vaccine; Z88.1 Allergy status to other antibiotic agents; Z88.6 Allergy status to analgesic agent; Z83.6 Family history of other diseases of the respiratory system; Z80.41 Family history of malignant neoplasm of ovary
CPT/HCPCS: 36415; 71010; 71020; 80048; 80053; 82550; 82553; 82803; 82962; 83735; 84484; 85025; 87040; 87070; 87077; 87205; 93005; 93010; 94640; 94660; 94799; 96365; 96374; 96375; 99285; 99291; J0456; J1644; J1815; J2543; J2920; J2930; J3475; J3490; J7060; J7512; J7620

== ENCOUNTER 2016-08-02 11:21 | Emergency (ER) | payer OTHER, MEDICARE ==
[2016-08-02] MEDS ORDERED: PREDNISONE 20 MG TABLET PO ONE (11:37)
[2016-08-02] MEDS ORDERED: ALBUTEROL SULFATE 0.083% NEB 2.5 MG/3 ML AMPUL NEB ONE ×2 (11:37→12:44)
[2016-08-02] MEDS ORDERED: MAGNESIUM SULFATE INJ 8 MEQ/2 ML IV ONE (11:38)
--- NOTE | 2016-08-02 11:45 | ER Document Report ---
ED Respiratory Problem - General Mode of Arrival: Medic Information source: Patient TRAVEL OUTSIDE OF THE [place] IN LAST 30 DAYS: No - HPI Patient complains to provider of: COPD Onset: Yesterday Duration: Worse/persistent Context: Hx COPD Cough: Productive Sputum amount: Large Sputum color: Green, Yellow At home treatment: Inhaled steroids, Oxygen EMS treatments: Solumedrol <ROSEANNE THOMPSON - Last Filed: 08/02/16 11:38> <AJIT NAVA - Last Filed: 08/02/16 15:25> - General Chief Complaint: Breathing Difficulty Stated Complaint: DIFFICULTY BREATHING Time Seen by Provider: 08/02/16 11:32 Notes: Patient is a 70-year-old male, with history of COPD, presenting to the emergency department via EMS concerned of difficulty breathing onset yesterday morning. Patient states that he used his nebulizer twice yesterday afternoon, and twice this morning prior to coming to the emergency department. EMS reports patient 89% O2 saturation on arrival, and gave the patient 2 albuterol and atrovent treatments and 125 Solumedrol. Patient admits to cough with thick green /yellow sputum. Patient reports using 2L Oxygen at night, and he states that he just finished 5 days of Prednisone on 07/30/2016. The symptoms began 2 days after the last dose of Prednisone. (ROSEANNE THOMPSON) - Related Data Allergies/Adverse Reactions: cephradine [From Velosef] Allergy (Unknown, Verified 06/07/16 22:51) ibuprofen [Ibuprofen] Allergy (Unknown, Verified 06/07/16 22:51) Influenza Virus Vaccines [Influenza Virus Vaccine] Allergy (Verified 06/07/16 20 :13) Past Medical History - General Information source: Patient, [facility] Records - Social History Smoking Status: Former Smoker Family History: None, COPD, Malignancy - Past Medical History Cardiac Medical History: Reports: Hx Congestive Heart Failure, Hx Coronary Artery Disease, Hx Heart Attack, Hx Hypertension Pulmonary Medical History: Reports: Hx Asthma, Hx COPD Musculoskeltal Medical History: Reports Hx Arthritis, Reports Hx Musculoskeletal Trauma Psychiatric Medical History: Reports: Hx Depression, Hx Post Traumatic Stress Disorder Traumatic Medical History: Reports: Hx Traumatic Brain Injury Past Surgical History: Reports: Hx Adenoidectomy, Hx Cardiac Surgery - Defib, Hx Herniorrhaphy, Hx Internal Defibrillator - ICD placement, replaced battery x3 , Hx Orthopedic Surgery - Right knee, right hand, right foot, Hx Pacemaker, Hx Tonsillectomy - and adenoids - Immunizations Hx Diphtheria, Pertussis, Tetanus Vaccination: Yes <ROSEANNE THOMPSON - Last Filed: 08/02/16 11:38> Review of Systems - Review of Systems Constitutional: No symptoms reported EENT: No symptoms reported Cardiovascular: No symptoms reported Respiratory: See HPI, Cough, Short of breath, Sputum - yellow green Gastrointestinal: No symptoms reported Genitourinary: No symptoms reported Male Genitourinary: No symptoms reported Musculoskeletal: No symptoms reported Skin: No symptoms reported Hematologic/Lymphatic: No symptoms reported Neurological/Psychological: No symptoms reported <ROSEANNE THOMPSON - Last Filed: 08/02/16 11:38> Course <ROSEANNE THOMPSON - Last Filed: 08/02/16 11:38> - Laboratory Result Diagrams: 08/02/16 11:35 08/02/16 11:35 - Diagnostic Test Radiology reviewed: Image reviewed, Reports reviewed - Chest X-ray read as increased densities in both lung bases. <AJIT NAVA - Last Filed: 08/02/16 15:25> - Re-evaluation Re-evalutation: 08/02/16 14:24 The patient reports that his breathing feels much better at this time and he feels ready to go home. Chest x-ray shows COPD with probable basilar atelectasis. The BNP is only 328 and a white blood cell count is normal. His oxygen was reduced to 2 L nasal cannula, which is his usual flow rate at home. 08/02/16 14:40 Oxygen saturation is 96% on 2 L nasal cannula at this time. Reports that he prednisone and a probable macrolide antibiotic both finished on Sunday. His breathing problems got worse Sunday morning. He reports the sputum change began this morning. (AJIT NAVA) - Vital Signs Vital signs: Temp Pulse Resp BP Pulse Ox 98.5 F 20 164/70 H 96 08/02/16 11:51 08/02/16 15:02 08/02/16 15:02 08/02/16 15:02 - Laboratory Laboratory results interpreted by me: 08/02/16 08/02/16 11:35 11:35 WBC 12.2 H MCHC 31.9 L RDW 14.5 H BUN 25 H Glucose 111 H Creatine Kinase 33 L Discharge <ROSEANNE THOMPSON - Last Filed: 08/02/16 11:38> <AJIT NAVA - Last Filed: 08/02/16 15:25> - Discharge Clinical Impression: Acute exacerbation of chronic obstructive pulmonary disease (COPD) Condition: Stable Additional Instructions: You seem to have developed an exacerbation of your COPD when you stop the prednisone. You are given a prescription of prednisone to start tomorrow. You are given a prescription for doxycycline, which is in a different antibiotic class than what you finished on Sunday. The new antibiotic is added due to the sudden change in your sputum appearance. Continue your regular medications. Follow-up with your doctor this week for recheck. RETURN TO THE EMERGENCY ROOM IF ANY NEW OR WORSENING SYMPTOMS. Prescriptions: Doxycycline Hyclate 100 mg PO BID #20 tablet Prednisone [Deltasone 10 mg Tablet] 10 mg PO ASDIR PRN #21 tablet PRN Reason: Scribe Attestation: 08/02/16 15:25 I personally performed the services described in the documentation, reviewed and edited the documentation which was dictated to the scribe in my presence, and it accurately records my words and actions. (AJIT NAVA) Scribe Documentation - Scribe Written by Malinda:: Malinda Myers, 08/02/2016 1138 acting as scribe for :: Дмитрий <ROSEANNE THOMPSON - Last Filed: 08/02/16 11:38>
[2016-08-02 11:56] LABS: ABSOLUTE LYMPHOCYTES (AUTO) 2.6 10^3/uL (0.5-4.7); ABSOLUTE MONOCYTES (AUTO) 1.3 10^3/uL (0.1-1.4); ABSOLUTE NEUT (AUTO) 8.2 10^3/uL (1.7-8.2); BASOPHILS % (AUTO) 0.3 % (0-2); EOSINOPHILS % (AUTO) 0.4 % (0-6); HEMATOCRIT 45.6 % (37.9-51.0); HEMOGLOBIN 14.6 g/dL (13.5-17.0); HGB HCT DIFFERENCE -1.8; LYMPHOCYTES % (AUTO) 21.1 % (13-45); MEAN CORPUSCULAR HEMOGLOBIN 30.8 pg (27.0-33.4); MEAN CORPUSCULAR HGB CONC 31.9 g/dL (32.0-36.0); MEAN CORPUSCULAR VOLUME 97 fl (80-97); MONOCYTES % (AUTO) 10.7 % (3-13); RED BLOOD COUNT 4.73 10^6/uL (4.35-5.55); RED CELL DISTRIBUTION WIDTH 14.5 % (11.5-14.0); SEGMENTED NEUTROPHILS % (AUTO) 67.5 % (42-78); WHITE BLOOD COUNT 12.2 10^3/uL (4.0-10.5)
[2016-08-02 12:13] LABS: ALANINE AMINOTRANSFERASE 37 U/L (21-72); ALKALINE PHOSPHATASE 79 U/L (38-126); ANION GAP 9 (5-19); ASPARTATE AMINO TRANSFERASE 38 U/L (17-59); BILIRUBIN,DIRECT 0.4 mg/dL (0.0-0.4); BILIRUBIN,TOTAL 1.1 mg/dL (0.2-1.3); BLOOD UREA NITROGEN 25 mg/dL (7-20); CALCIUM 8.7 mg/dL (8.4-10.2); CARBON DIOXIDE 30 mmol/L (22-30); CHLORIDE 99 mmol/L (98-107); CREATINE KINASE 33 U/L (55-170); CREATININE RESULT 0.93 mg/dL (0.52-1.25); GLUCOSE 111 mg/dL (75-110); POTASSIUM 4.1 mmol/L (3.6-5.0); SODIUM 137.5 mmol/L (137-145); TOTAL PROTEIN 7.4 g/dL (6.3-8.2)
[2016-08-02 12:22] LABS: CREATINE KINASE MB 1.26 ng/mL (<4.55)
[2016-08-02 12:25] LABS: ALCOHOL < 10 mg/dL (NONE DETECTED)
[2016-08-02 12:27] LABS: TROPONIN I < 0.012 ng/mL
--- NOTE | 2016-08-02 12:53 | RADIOLOGY REPORT (SQ) ---
EXAM DESCRIPTION: CHEST SINGLE VIEW COMPLETED DATE/TIME: 08/02/2016 12:43 pm REASON FOR STUDY: COPD exacerbation COMPARISON: Radiograph dated 06/07/2016. CT dated 11/11/2014 EXAM PARAMETERS: NUMBER OF VIEWS: One view. TECHNIQUE: Single frontal radiographic view of the chest acquired. RADIATION DOSE: NA LIMITATIONS: None. FINDINGS: LUNGS AND PLEURA: Increased bibasilar densities are noted could represent areas of atelect asis, infiltrate, or edema. No pneumothorax is present. No significant effusion. MEDIASTINUM AND HILAR STRUCTURES: No masses. Contour normal. HEART AND VASCULAR STRUCTURES: Cardiac size is stable. No pulmonary vascular distention BONES: No acute findings. HARDWARE: Stable left chest AICD. EKG leads overlie the chest. OTHER: No other significant finding. IMPRESSION: Increased densities noted at both lung bases, right greater the left which could represe nt areas of atelectasis, edema, or developing infiltrate. Correlate clinically. TECHNICAL DOCUMENTATION: JOB ID: [id number]
[2016-08-02] MEDS ORDERED: MAGNESIUM SULFATE/D5W 1 GM/100 ML RTUPB IV ONE (13:00)
[2016-08-02] MEDS ORDERED: DOXYCYCLINE HYCLATE 100 MG TABLET PO ONE (15:21)
[2016-08-02 15:43] VITALS: BP 172/76
--- NOTE | 2016-08-03 09:18 | EKG REPORT ---
SEVERITY:- ABNORMAL ECG - SINUS TACHYCARDIA PROBABLE LEFT ATRIAL ABNORMALITY RIGHT BUNDLE BRANCH BLOCK : Confirmed by: Radha Iqbal 03-Aug-2016 09:17:02
== END 2016-08-02 15:45 | disposition home or self-care (01) ==
LOC: ER 11:21
DX: J44.1 Chronic obstructive pulmonary disease with (acute) exacerbation (principal); R06.02 Shortness of breath; Z79.899 Other long term (current) drug therapy; Z87.891 Personal history of nicotine dependence
CPT/HCPCS: 93005; 94640 ×2; 99285; 96365; 36415; 87040; 82553; 80307; 82550; 85025; 80053; 84484; 83880; 71010; 93010; J3475; J7512

== ENCOUNTER → 2016-12-12 | Outpatient (CLI) | payer MEDICARE, OTHER ==
--- NOTE | 2016-12-12 16:48 | RADIOLOGY REPORT (SQ) ---
EXAM DESCRIPTION: CT ABDOMEN COMBO COMPLETED DATE/TIME: 12/12/2016 3:01 pm REASON FOR STUDY: LEFT UPPER QUADRANT PAIN (R10.12) R10.12 LEFT UPPER QUADRANT PAIN COMPARISON: CT lumbar spine 03/24/2016 CT chest 11/11/2014 CT abdomen pelvis 11/07/2011 TECHNIQUE: CT scan of the abdomen performed with and without intravenous contrast, and without oral contrast. Contrasted imaging performed using helical scanning technique with dynamic intravenous cont rast injection. Images reviewed with lung, soft tissue, and bone windows. Reconstructed coronal and s agittal MPR images reviewed. Delayed images for evaluation of the urinary system also acquired and ev aluated. All images stored on PACS. All CT scanners at this facility use dose modulation, iterative reconstruction, and/or weight based d osing when appropriate to reduce radiation dose to as low as reasonably achievable (ALARA). [facility]: Dose Right [facility]: CareDose [facility]: Dose Right [facility]: Teradose 4D [facility]: [employer] CONTRAST TYPE AND DOSE: contrast/concentration: Isovue 370.00 mg/ml; Total Contrast Delivered: 64.0 ml; Total Saline Delivered: 67.0 ml RENAL FUNCTION: Creatinine 1.1 RADIATION DOSE: Up-to-date CT equipment and radiation dose reduction techniques were employed. CTDIv ol: 20.0 - 45.1 mGy. DLP: 3863 mGy-cm.. LIMITATIONS: None. FINDINGS: NONCONTRASTED IMAGING: No significant renal or bladder calcifications. No other significan t organ calcifications. POSTCONTRASTED IMAGING: LOWER CHEST: No acute infiltrates. No pleural fluid. Less than 4 mm nodule right middle lobe unchan ged since 2011, benign. LIVER: Normal size. No masses. No dilated ducts. Diffuse low attenuation from fatty infiltration. SPLEEN: Normal size. No focal lesions. PANCREAS: No masses. No significant calcifications. No adjacent inflammation or peripancreatic fluid collections. Pancreatic duct not dilated. GALLBLADDER: No identified stones by CT criteria. No inflammatory changes to suggest cholecystitis. ADRENAL GLANDS: No significant masses or asymmetry. RIGHT KIDNEY AND URETER: No solid masses. No significant calcifications. No hydronephrosis or hyd roureter. LEFT KIDNEY AND URETER: No solid masses. No significant calcifications. No hydronephrosis or hydr oureter. AORTA AND VESSELS: No aneurysm. No dissection. Renal arteries, SMA, celiac without stenosis. RETROPERITONEUM: No retroperitoneal adenopathy, hemorrhage or masses. BOWEL AND PERITONEAL CAVITY: No masses or inflammatory changes. No free fluid or peritoneal masses. APPENDIX: Normal. ABDOMINAL WALL: No masses. No hernias. BONES: Diffuse degenerative changes in the lower lumbar spine OTHER: No other significant finding. IMPRESSION: Fatty liver. Otherwise unremarkable study TECHNICAL DOCUMENTATION: JOB ID: [id number] Quality ID # [id number]: Final reports with documentation of one or more dose reduction techniques (e.g., Au tomated exposure control, adjustment of the mA and/or kV according to patient size, use of iterative reconstruction technique) 2010 [employer] All Rights Reserved
== END ==
LOC: RAD 14:12
PROVIDERS: ATTEND Family Medicine
DX: R10.12 Left upper quadrant pain (principal); K76.0 Fatty (change of) liver, not elsewhere classified
CPT/HCPCS: 74170; 82565

== ENCOUNTER 2017-01-03 08:52 | Day surgery (SDC) | payer MEDICARE, OTHER ==
[~2017-01-03 08:52] MED LIST: KETOROLAC TROMETHAMINE 0.45% 4 DROP/0.4 ML DROPERETTE OD PRN
[2017-01-03] MEDS: TETRACAINE HCL 0.5% OPH SOLN 0.6 ML DROPERETTE OD PRN ×4 (09:50→10:46)
[2017-01-03] MEDS: TROPICAMIDE 1% OPH SOLN 3 ML OD PRN ×3 (09:50→10:12)
[2017-01-03] MEDS: BESIFLOXACIN HCL 0.6% OPH SUSP 5 ML BOTTLE OD PRN ×4 (09:50→11:07)
[2017-01-03] MEDS: CYCLOPENTOLATE 0.2%/PHENYLEPHRINE 1% OPH SOLN 2 ML OD PRN ×3 (09:51→10:12)
[2017-01-03] MEDS ORDERED: MIDAZOLAM 2 MG/2 ML INJ ONE (10:25)
[2017-01-03] MEDS: EPINEPHRINE INJ/PF 1 MG/1 ML AMPULE ONE ×2 (10:57)
[2017-01-03] MEDS: LIDOCAINE 1% INJ-PF (10 MG/ML) 30 ML SDV ONE ×2 (10:57)
[2017-01-03] MEDS: CHONDR SU A NA/HYALUR INTRAOC KIT (SURGICARE) ONE ×2 (10:57)
[2017-01-03] MEDS: TOBRAMYCIN SULFATE/DEXAMETH OPH OINTMENT 3.5 GM ONE ×2 (11:07)
== END 2017-01-03 11:47 | disposition home or self-care (01) ==
LOC: SC 08:52
PROVIDERS: ATTEND Ophthalmology
PROC: 08RJ3JZ Replacement of Right Lens with Synthetic Substitute, Percutaneous Approach (ICD-10-PCS; principal; 2017-01-03 10:00)
DX: H25.11 Age-related nuclear cataract, right eye (principal); M19.90 Unspecified osteoarthritis, unspecified site; I25.10 Atherosclerotic heart disease of native coronary artery without angina pectoris; J45.909 Unspecified asthma, uncomplicated; E78.00 Pure hypercholesterolemia, unspecified; Z79.82 Long term (current) use of aspirin; Z79.899 Other long term (current) drug therapy; Z79.51 Long term (current) use of inhaled steroids; Z79.1 Long term (current) use of non-steroidal anti-inflammatories (NSAID); Z87.891 Personal history of nicotine dependence; Z86.73 Personal history of transient ischemic attack (TIA), and cerebral infarction without residual deficits
CPT/HCPCS: 66984; V2630; J2250; J3490 ×3; A9270; J0171; 142

== ENCOUNTER → 2017-01-16 | Outpatient (CLI) | payer MEDICARE, OTHER ==
--- NOTE | 2017-01-16 13:49 | RADIOLOGY REPORT (SQ) ---
EXAM DESCRIPTION: PELVIS AP COMPLETED DATE/TIME: 01/16/2017 1:10 pm REASON FOR STUDY: FALL (ON) (FROM) UNSPECIFIED STAIRS AND STEPS, INIT ENCNTR W10.9XXA FALL (ON) (FR OM) UNSPECIFIED STAIRS AND STEPS, INIT COMPARISON: Right hip films 10/30/2015 NUMBER OF VIEWS: One view TECHNIQUE: AP Pelvis LIMITATIONS: None. FINDINGS: MINERALIZATION: Normal. HIPS: No acute fracture or dislocation. No worrisome bone lesions. PELVIS AND SACRUM: No acute fracture or dislocation. No worrisome bone lesions. PUBIS AND ISCHIUM: No acute fracture. LOWER LUMBAR SPINE: Lower lumbar facet arthropathy at L4-5 and L5-S1 SOFT TISSUES: No findings. OTHER: No other significant finding. IMPRESSION: No acute changes TECHNICAL DOCUMENTATION: JOB ID: [id number] [employer]- All Rights Reserved
== END ==
LOC: OD 12:27
PROVIDERS: ATTEND Family Medicine
DX: S79.911A Unspecified injury of right hip, initial encounter (principal); W10.9XXA Fall (on) (from) unspecified stairs and steps, initial encounter; Y93.9 Activity, unspecified; Y92.9 Unspecified place or not applicable; Y99.9 Unspecified external cause status
CPT/HCPCS: 72170

== ENCOUNTER 2017-01-17 08:52 | Day surgery (SDC) | payer MEDICARE, OTHER ==
[~2017-01-17 08:52] MED LIST changes: +CHONDR SU A NA/HYALUR INTRAOC KIT (SURGICARE) ONE; +EPINEPHRINE INJ/PF 1 MG/1 ML AMPULE ONE; -KETOROLAC TROMETHAMINE 0.45% 4 DROP/0.4 ML DROPERETTE OD PRN; +KETOROLAC TROMETHAMINE 0.45% 4 DROP/0.4 ML DROPERETTE OS PRN; +LIDOCAINE 1% INJ-PF (10 MG/ML) 30 ML SDV ONE; +TOBRAMYCIN SULFATE/DEXAMETH OPH OINTMENT 3.5 GM ONE
[2017-01-17] MEDS: TETRACAINE HCL 0.5% OPH SOLN 0.6 ML DROPERETTE OS PRN ×3 (09:28→10:23)
[2017-01-17] MEDS: TROPICAMIDE 1% OPH SOLN 3 ML OS PRN ×3 (09:29→09:55)
[2017-01-17] MEDS: CYCLOPENTOLATE 0.2%/PHENYLEPHRINE 1% OPH SOLN 2 ML OS PRN ×3 (09:29→09:55)
[2017-01-17] MEDS: BESIFLOXACIN HCL 0.6% OPH SUSP 5 ML BOTTLE OS PRN ×3 (09:29→10:32)
[2017-01-17] MEDS ORDERED: MIDAZOLAM 2 MG/2 ML INJ ONE (09:59)
[2017-01-17] MEDS ORDERED: FENTANYL CITRATE INJ/PF 100 MCG/2 ML AMPUL ONE (10:00)
== END 2017-01-17 11:23 | disposition home or self-care (01) ==
LOC: SC 08:52
PROVIDERS: ATTEND Ophthalmology
PROC: 08RK3JZ Replacement of Left Lens with Synthetic Substitute, Percutaneous Approach (ICD-10-PCS; principal; 2017-01-17 10:00)
DX: H25.12 Age-related nuclear cataract, left eye (principal); M19.90 Unspecified osteoarthritis, unspecified site; J45.909 Unspecified asthma, uncomplicated; I25.10 Atherosclerotic heart disease of native coronary artery without angina pectoris; E78.00 Pure hypercholesterolemia, unspecified; Z79.51 Long term (current) use of inhaled steroids; Z79.899 Other long term (current) drug therapy; Z79.1 Long term (current) use of non-steroidal anti-inflammatories (NSAID); Z79.82 Long term (current) use of aspirin; Z86.73 Personal history of transient ischemic attack (TIA), and cerebral infarction without residual deficits; Z98.41 Cataract extraction status, right eye; Z88.7 Allergy status to serum and vaccine
CPT/HCPCS: 66984; V2630; J2250; J3490 ×3; A9270; J0171; J3010; 142

== ENCOUNTER 2017-02-21 18:23 | Emergency (ER) | payer MEDICARE, OTHER ==
[2017-02-21] MEDS ORDERED: NAPROXEN 250 MG TABLET PO ONE (18:48)
--- NOTE | 2017-02-21 19:00 | ER Document Report ---
ED General - General Chief Complaint: Hip Pain Stated Complaint: CHEST PAIN Time Seen by Provider: 02/21/17 18:38 Notes: The patient is a 71-year-old male, past medical history Brugada syndrome with AICD, osteoarthritis, presents with right hip pain for the past 2 months that is worsening over the past week. He is now having worsening pain when he walks. He had a negative right hip x-ray about 5 weeks ago and has seen his primary care physician and physician at the [facility] for this hip pain. He is on oxycodone, but not on any anti-inflammatories. Patient also says that he is having chest pain when the pain is worse. He had chest pain earlier today that lasted a few minutes, but denies any current chest pain. He denies numbness, tingling, new injury, shortness of breath, rash, back pain, abdominal pain, nausea or vomiting. TRAVEL OUTSIDE OF THE [place] IN LAST 30 DAYS: No - Related Data Allergies/Adverse Reactions: ibuprofen [Ibuprofen] Allergy (Unknown, Verified 02/21/17 18:36) Influenza Virus Vaccines [Influenza Virus Vaccine] Allergy (Verified 02/21/17 18 :36) Past Medical History - General Information source: Patient - Social History Smoking Status: Unknown if Ever Smoked Frequency of alcohol use: None Drug Abuse: None Family History: None, COPD, Malignancy Patient has suicidal ideation: No Patient has homicidal ideation: No - Past Medical History Cardiac Medical History: Reports: Hx Congestive Heart Failure, Hx Coronary Artery Disease, Hx Heart Attack, Hx Hypertension Pulmonary Medical History: Reports: Hx Asthma, Hx COPD Neurological Medical History: Denies: Hx Cerebrovascular Accident, Hx Seizures Renal/ Medical History: Denies: Hx Peritoneal Dialysis GI Medical History: Denies: Hx Hepatitis, Hx Hiatal Hernia, Hx Ulcer Musculoskeltal Medical History: Reports Hx Arthritis, Reports Hx Musculoskeletal Trauma Psychiatric Medical History: Reports: Hx Depression, Hx Post Traumatic Stress Disorder Traumatic Medical History: Reports: Hx Traumatic Brain Injury Infectious Medical History: Denies: Hx Hepatitis Past Surgical History: Reports: Hx Adenoidectomy, Hx Cardiac Surgery - Defib, Hx Herniorrhaphy, Hx Internal Defibrillator - ICD placement, replaced battery x3 , Hx Orthopedic Surgery - Right knee, right hand, right foot, Hx Tonsillectomy - and adenoids. Denies: Hx Open Heart Surgery, Hx Pacemaker - Immunizations Hx Diphtheria, Pertussis, Tetanus Vaccination: Yes Review of Systems - Review of Systems Notes: REVIEW OF SYSTEMS: CONSTITUTIONAL: -fevers, -chills EENT: -eye pain, -difficulty swallowing, -nasal congestion CARDIOVASCULAR: +chest pain, -syncope. RESPIRATORY: -cough, -SOB GASTROINTESTINAL: -abdominal pain, - nausea, -vomiting, -diarrhea GENITOURINARY: -dysuria, -hematuria MUSCULOSKELETAL: +right hip pain, -back pain, -neck pain SKIN: -rash or skin lesions. HEMATOLOGIC: -easy bruising or bleeding. LYMPHATIC: -swollen, enlarged glands. NEUROLOGICAL: -altered mental status or loss of consciousness, -headache, - neurologic symptoms PSYCHIATRIC: -anxiety, -depression. ALL OTHER SYSTEMS REVIEWED AND NEGATIVE. Physical Exam - Vital signs Vitals: Temp Pulse Resp BP Pulse Ox 97.6 F 65 18 164/78 H 97 02/21/17 18:34 02/21/17 18:34 02/21/17 18:34 02/21/17 18:34 02/21/17 18:34 - Notes Notes: PHYSICAL EXAMINATION: GENERAL: Well-appearing, well-nourished and in no acute distress. HEAD: Atraumatic, normocephalic. EYES: Pupils equal round and reactive to light, extraocular movements intact, sclera anicteric, conjunctiva are normal. ENT: nares patent, oropharynx clear without exudates. Moist mucous membranes. NECK: Normal range of motion, supple without lymphadenopathy LUNGS: Breath sounds clear to auscultation bilaterally and equal. No wheezes rales or rhonchi. HEART: Regular rate and rhythm without murmurs ABDOMEN: Soft, nontender, normoactive bowel sounds. No guarding, no rebound. No masses appreciated. EXTREMITIES: Painful right hip flexion, strong distal pulses. Sensation intact distally. NEUROLOGICAL: Cranial nerves grossly intact. Normal speech, normal gait. Normal sensory and motor exams. PSYCH: Normal mood, normal affect. SKIN: Warm, Dry, normal turgor, no rashes or lesions noted. Course - Re-evaluation Re-evalutation: Patient has had right hip pain for the past 8 weeks that is worsening over the past week. His x-ray from 6 weeks ago did not show acute fractures, but with difficulty walking, CT of the hip was obtained and it did not show an acute fracture. Looking through his medication records, he is on oxycodone 20 mg five times a day, Naprosyn, Flexeril and gabapentin for this hip pain. Added Lidoderm patch and he says the pain has already improved. He is already following with his primary care physician and instructed him to follow-up with orthopedics. Patient said that he has had chest pain when he is in pain, but this quickly resolves. His EKG is similar to his prior EKG and troponins are negative. 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 Do not suspect ACS , aortic dissection or PE at this time. Given very strict return precautions and he understands. - Vital Signs Vital signs: Temp Pulse Resp BP Pulse Ox 97.6 F 65 17 164/78 H 99 02/21/17 18:34 02/21/17 18:34 02/21/17 19:05 02/21/17 18:34 02/21/17 19:05 - Laboratory Result Diagrams: 02/21/17 19:02 02/21/17 19:02 Laboratory results interpreted by me: 02/21/17 19:02 Creatine Kinase 52 L - Diagnostic Test Radiology reviewed: Image reviewed, Reports reviewed Radiology results interpreted by me: CXR: NAD Pelvis CT: NAD - EKG Interpretation by Me EKG shows normal: Sinus rhythm Rate: Normal Rhythm: PVC's [place]/QRS: RBBB When compared to previous EKG there are: No significant change Discharge - Discharge Clinical Impression: Right hip pain Chest pain Qualifiers: Chest pain type: unspecified Qualified Code(s): R07.9 - Chest pain, unspecified Condition: Stable Additional Instructions: CHEST PAIN OF UNCLEAR CAUSE: The exact cause of your chest pain isn't clear. Fortunately, there is no evidence of a dangerous medical condition. Further testing may be required to find the source of the pain. Most often, we find that this pain is coming from the chest wall -- the muscles or rib joints in the chest. But chest pain can come from the lung and lung lining, the esophagus, the heart valves or heart lining, and even the stomach or gallbladder. Rest. Eat lightly until the pain is gone. We may prescribe medicine for pain and inflammation. You should call the physician immediately if the pain radiates to the shoulder, jaw or arms; if you start to run a fever or develop a cough; or if you develop shortness of breath, or other new or alarming symptoms. NORMAL EXAM AND WORKUP: At this time, your examination and workup show no significant abnormality. No significant abnormal physical findings were noted. All laboratory, EKG, and imaging (x-ray, CT scans, ultrasound) studies that were ordered show no significant abnormality. Although your examination and all studies that were ordered showed no significant abnormal finding, there are no examinations and no studies that are 100% accurate. There is always the possibility that some abnormality could exist and not be detected with physical examination or within the limits and capabilities of laboratory and other studies. You should return or follow up as you were instructed on your visit today for further evaluation if your symptoms do not resolve. CHEST WALL PAIN: Your chest pain may be coming from the chest wall. This is often caused by straining the muscles or joints in the chest during physical activity, direct trauma, coughing, or vigorous vomiting. Persons with arthritis are especially prone to this type of pain, due to inflammation of the cartilage joints near the breast bone. Occasionally, no cause can be found. Rest from strenuous physical activity. This kind of chest pain is usually made worse by movement of the chest. Depending on the symptoms, we may prescribe medicine for pain, muscle relaxation, and antiinflammatory effects. If the pain is new, and seems to be due to muscle strain, cold packs can help. Otherwise, apply gentle warmth to the painful area for 15 minutes every hour or two. You should call contact the doctor immediately if things change. Further evaluation is needed if you develop a fever or cough, if the nature of the pain changes, or if you become short of breath. ANGINA EPISODE: Your physician has diagnosed the pain you experienced as an episode of angina. Angina occurs when a portion of the heart muscle temporarily lacks oxygen. It does not cause any permanent heart damage, but serves as a warning. Hospitalization is not necessary now. Evaluation of your cardiac condition , and medical therapy for angina will be necessary. It's important you be sure to keep all appointments and take medication exactly as prescribed. Angina is usually treated with a type of "nitrate" medication. This is available as ointment, pills, or sublingual (under the tongue) tablets. Depending on your clinical situation, other medications may be added to help control angina. These may include beta blockers or calcium blockers. If episodes of angina are occurring with increased frequency, or if chest pain lasts longer than 15 minutes or does not respond to nitroglycerin, you must seek emergency medical care immediately. FOLLOW-UP CARE: If you have been referred to a physician for follow-up care, call the physician s office for an appointment as you were instructed or within the next two days. If you experience worsening or a significant change in your symptoms, notify the physician immediately or return to the Emergency Department at any time for re-evaluation. Arthritis Your symptoms may be due to arthritis. Arthritis is an inflammation of the joints. There are many types -- osteoarthritis (due to "wear and tear"), auto-immmune arthritis (such as rheumatoid, lupus, Jasmin's, and others), and crystal-induced arthritis (such as gout and pseudogout). The physician's examination, combined with laboratory tests, will determine the cause of your arthritis. All types of arthritis are treated with antiinflammatory medications. Other medication may be required for special types of arthritis, or if your problem does not respond to the antiinflammatory medicine. Local warmth may be helpful. Move the involved joints through the full range of motion daily. Mild exercise is usually still possible for most persons with arthritis (ask your physician). Swimming provides good exercise without damaging the joints. Contact the physician if you are worsening in any way. Contusion Your injury has resulted in a contusion -- a crushing of the deep tissues. No injury to important structures was detected during the physician's exam. Contusions vary in the amount of pain they cause, and in the length of time required for healing. Typically, the area will become bruised, and will remain painful to touch for two or three weeks. However, most patients are back to working and playing within a few days. After the initial period of rest and cold-packs, your symptoms (together with the doctor's recommendations) will determine how rapidly you can get back to full activity. Usually this means "do what feels okay, but don't do things that hurt." If re-examination was recommended, it's important to follow up as instructed. Call the doctor or return any time if pain increases, if swelling becomes severe, if you develop numbness or weakness in an injured extremity, or if any other alarming symptoms occur. Prescriptions: Lidocaine [Lidoderm 5% (700 mg) Transdermal Patch] 1 patch TP DAILY #10 adh..patch Forms: Elevated Blood Pressure Referrals: JACKSON HERNANDEZ MD [Primary Care Provider] - Follow up as needed KENDRICK KEYES MD [ACTIVE STAFF] - Follow up as needed
[2017-02-21 19:11] LABS: ABSOLUTE BASOPHILS # (AUTO) 0.1 10^3/uL (0.0-0.2); ABSOLUTE EOSINOPHILS # (AUTO) 0.1 10^3/uL (0.0-0.6); ABSOLUTE LYMPHOCYTES (AUTO) 2.1 10^3/uL (0.5-4.7); ABSOLUTE MONOCYTES (AUTO) 0.8 10^3/uL (0.1-1.4); BASOPHILS % (AUTO) 1.1 % (0-2); EOSINOPHILS % (AUTO) 0.7 % (0-6); HEMATOCRIT 47.9 % (37.9-51.0); HEMOGLOBIN 16.4 g/dL (13.5-17.0); MEAN CORPUSCULAR HEMOGLOBIN 31.1 pg (27.0-33.4); MEAN CORPUSCULAR HGB CONC 34.2 g/dL (32.0-36.0); MEAN CORPUSCULAR VOLUME 91 fl (80-97); MONOCYTES % (AUTO) 7.8 % (3-13); PLATELET COUNT 206 10^3/uL (150-450); RED BLOOD COUNT 5.27 10^6/uL (4.35-5.55); RED CELL DISTRIBUTION WIDTH 13.5 % (11.5-14.0); SEGMENTED NEUTROPHILS % (AUTO) 69.4 % (42-78); TOTAL CELLS COUNTED % (AUTO) 100 %; WHITE BLOOD COUNT 10.1 10^3/uL (4.0-10.5)
--- NOTE | 2017-02-21 19:11 | EKG REPORT ---
SEVERITY:- ABNORMAL ECG - SINUS RHYTHM MULTIFORM VENTRICULAR PREMATURE COMPLEXES PROMINENT P WAVES, NONDIAGNOSTIC RIGHT BUNDLE BRANCH BLOCK : Confirmed by: Radha Iqbal 21-Feb-2017 19:10:11
[2017-02-21 19:31] LABS: ALANINE AMINOTRANSFERASE 49 U/L (21-72); ALBUMIN 4.6 g/dL (3.5-5.0); ALKALINE PHOSPHATASE 66 U/L (38-126); ANION GAP 12 (5-19); ASPARTATE AMINO TRANSFERASE 55 U/L (17-59); BILIRUBIN,DIRECT 0.4 mg/dL (0.0-0.4); BILIRUBIN,TOTAL 0.5 mg/dL (0.2-1.3); BLOOD UREA NITROGEN 13 mg/dL (7-20); CALCIUM 9.8 mg/dL (8.4-10.2); CARBON DIOXIDE 27 mmol/L (22-30); CHLORIDE 103 mmol/L (98-107); CREATINE KINASE 52 U/L (55-170); GLUCOSE 96 mg/dL (75-110); POTASSIUM 4.2 mmol/L (3.6-5.0); SODIUM 142.3 mmol/L (137-145); TOTAL PROTEIN 7.9 g/dL (6.3-8.2)
[2017-02-21 19:44] LABS: NT PRO BNP 215 pg/mL (5-900); TROPONIN I < 0.012 ng/mL
--- NOTE | 2017-02-21 20:22 | RADIOLOGY REPORT (SQ) ---
EXAM DESCRIPTION: CHEST SINGLE VIEW COMPLETED DATE/TIME: 02/21/2017 8:10 pm REASON FOR STUDY: chest pain COMPARISON: 08/02/2016 EXAM PARAMETERS: NUMBER OF VIEWS: One view. TECHNIQUE: Single frontal radiographic view of the chest acquired. RADIATION DOSE: NA LIMITATIONS: None. FINDINGS: LUNGS AND PLEURA: No opacities, masses or pneumothorax. No pleural effusion. MEDIASTINUM AND HILAR STRUCTURES: No masses. Contour normal. HEART AND VASCULAR STRUCTURES: Heart normal in size. Normal vasculature. BONES: No acute findings. HARDWARE: Pacemaker defibrillator. OTHER: No other significant finding. IMPRESSION: NO ACUTE RADIOGRAPHIC FINDING IN THE CHEST. TECHNICAL DOCUMENTATION: JOB ID: [id number] [employer]- All Rights Reserved
--- NOTE | 2017-02-21 20:30 | RADIOLOGY REPORT (SQ) ---
EXAM DESCRIPTION: CT PELVIS WITHOUT COMPLETED DATE/TIME: 02/21/2017 8:02 pm REASON FOR STUDY: right hip pain, negative x-ray, unable to walk COMPARISON: 01/16/2017 TECHNIQUE: CT scan of the pelvis performed without intravenous or oral contrast. Images reviewed wi th soft tissue and bone windows. Reconstructed coronal and sagittal MPR images reviewed. All images stored on PACS. All CT scanners at this facility use dose modulation, iterative reconstruction, and/or weight based d osing when appropriate to reduce radiation dose to as low as reasonably achievable (ALARA). [facility]: Dose Right [facility]: CareDose [facility]: Dose Right [facility]: Teradose 4D [facility]: Smart sickweather RADIATION DOSE: CT Rad equipment meets quality standard of care and radiation dose reduction techniq ues were employed. CTDIvol: 4.1 mGy. DLP: 165 mGy-cm. mGy. LIMITATIONS: None. FINDINGS: PELVIC BONES: No acute fracture. No worrisome bone lesions. VISUALIZED SPINE: No acute findings. Right hip): No acute fracture or dislocation. No worrisome bone lesions. PELVIC SOFT TISSUES: No significant findings. EXTRAPELVIC SOFT TISSUES: No significant findings. OTHER: No other significant finding. IMPRESSION: No acute fracture. TECHNICAL DOCUMENTATION: JOB ID: [id number] Quality ID # [id number]: Final reports with documentation of one or more dose reduction techniques (e.g., Au tomated exposure control, adjustment of the mA and/or kV according to patient size, use of iterative reconstruction technique) 2010 [employer]- All Rights Reserved
[2017-02-21] MEDS ORDERED: LIDOCAINE 5% (700 MG) TRANSDERMAL ADH..PATCH TP ONE (20:38)
[2017-02-21 22:44] VITALS: BP 132/95
== END 2017-02-21 22:44 | disposition home or self-care (01) ==
LOC: ER 18:23
DX: M25.551 Pain in right hip (principal); R07.9 Chest pain, unspecified; M16.11 Unilateral primary osteoarthritis, right hip; Z79.899 Other long term (current) drug therapy
CPT/HCPCS: 36415; 71045; 72192; 80053; 82550; 83880; 84484; 85025; 93005; 93010; 99284

== ENCOUNTER 2017-03-09 07:57 | Day surgery (SDC) | payer MEDICARE, OTHER ==
[~2017-03-09 07:57] MED LIST changes: -CHONDR SU A NA/HYALUR INTRAOC KIT (SURGICARE) ONE; +DIPHENHYDRAMINE HCL 50 MG/ML VIAL ONE; +EPINEPHRINE INJ 1 MG/10 ML DISP.SYRIN ONE; -EPINEPHRINE INJ/PF 1 MG/1 ML AMPULE ONE; +FLUMAZENIL INJ 0.5 MG/5 ML VIAL ONE; +GLUCAGON,HUMAN RECOMB 1 MG INJ ONE; -KETOROLAC TROMETHAMINE 0.45% 4 DROP/0.4 ML DROPERETTE OS PRN; -LIDOCAINE 1% INJ-PF (10 MG/ML) 30 ML SDV ONE; +NALOXONE HCL INJ/PF 0.4 MG/1 ML SDV ONE; +ONDANSETRON HCL INJ/PF 4 MG/2 ML SDV ONE; -TOBRAMYCIN SULFATE/DEXAMETH OPH OINTMENT 3.5 GM ONE
[2017-03-09] MEDS: MIDAZOLAM 2 MG/2 ML INJ ONE ×2 (08:28→08:37)
[2017-03-09] MEDS: FENTANYL CITRATE INJ/PF 100 MCG/2 ML AMPUL ONE ×2 (08:30→08:34)
[2017-03-09 09:53] VITALS: BP 132/58
--- NOTE | 2017-03-09 12:05 | Operative Report ---
Operative Report DATE OF SURGERY: 03/09/17 Operative Report: The risks, benefits and alternatives of the procedure including risks of bleeding, perforation requiring surgery are explained to the patient detail and informed consent is obtained. Patient is taken back to the endoscopy suite and placed in a left, lateral decubital position. Timeout was called. Conscious sedation medications are provided. A rectal examination is done which did not reveal any masses, tears or fissures. An Olympus videoscope was inserted into the patient's rectum. It is carefully advanced all the way to the cecum. The cecum was identified by the usual anatomical [place] including the ileocecal valve as well as the appendiceal office. Photodocumentation is obtained. Scope was then sequentially pulled back via the rest segments of the colon including the ascending colon, hepatic flexure, transverse colon, splenic flexure, descending colon finding to the rectosigmoid portions of the colon. Retroflexion maneuvers performed. PREOPERATIVE DIAGNOSIS: Personal history of a polyp. POSTOPERATIVE DIAGNOSIS: Colon polyp noted removed via snare polypectomy the ascending colon. OPERATION: Colonoscopy with snare polypectomy. SURGEON: ALEKSANDRA ADAMS ANESTHESIA: Moderate Sedation - 4 mg of Versed, 50 mcg of fentanyl. Conscious sedation monitoring time 30 minutes. TISSUE REMOVED OR ALTERED: As noted above. COMPLICATIONS: None. ESTIMATED BLOOD LOSS: None. INTRAOPERATIVE FINDINGS: As noted above. PROCEDURE: Patient tolerated procedure well. No immediate postprocedure complications are noted. Patient discharged in good condition. Discharge date 03/09/2017. Discharge diet: Regular. Discharge activity: Regular. 2-3 week follow-up to discuss findings. 3-5 year surveillance colonoscopy. We will await pathology. Patient is instructed call the office or proceed to the emergency room should there be any further problems or questions.
== END 2017-03-09 09:55 | disposition home or self-care (01) ==
LOC: END 07:57
PROVIDERS: ATTEND Internal Medicine Gastroenterology
PROC: 0DBK8ZX Excision of Ascending Colon, Via Natural or Artificial Opening Endoscopic, Diagnostic (ICD-10-PCS; principal; 2017-03-09 08:30)
DX: Z12.11 Encounter for screening for malignant neoplasm of colon (principal); D12.3 Benign neoplasm of transverse colon; E66.01 Morbid (severe) obesity due to excess calories; I48.91 Unspecified atrial fibrillation; I51.9 Heart disease, unspecified; I49.8 Other specified cardiac arrhythmias; Z79.82 Long term (current) use of aspirin; Z79.899 Other long term (current) drug therapy; Z79.51 Long term (current) use of inhaled steroids; Z86.73 Personal history of transient ischemic attack (TIA), and cerebral infarction without residual deficits; Z68.41 Body mass index [BMI] 40.0-44.9, adult; Z95.810 Presence of automatic (implantable) cardiac defibrillator
CPT/HCPCS: 45385; 88305 ×2; J2250; J3010; J0171; J1200; J1610; J2310; J2405; J3490

== ENCOUNTER → 2018-09-12 | Outpatient (CLI) | payer MEDICARE, OTHER ==
--- NOTE | 2018-09-12 12:18 | RADIOLOGY REPORT (SQ) ---
EXAM DESCRIPTION: HIP RIGHT AP/LATERAL COMPLETED DATE/TIME: 09/12/2018 12:05 pm REASON FOR STUDY: PAIN IN RIGHT HIP M25.551 PAIN IN RIGHT HIP COMPARISON: 10/30/2015 NUMBER OF VIEWS: Two views. TECHNIQUE: AP pelvis and additional frog-leg view of the right hip. LIMITATIONS: None. FINDINGS: MINERALIZATION: Normal. RIGHT HIP: No fracture or dislocation. No worrisome bone lesions. LEFT HIP: No fracture or dislocation. No worrisome bone lesions. PUBIS AND ISCHIUM: No fracture. PELVIS: No fracture. SACRUM: No fracture or dislocation. No worrisome bone lesions. LOWER LUMBAR SPINE: No fracture or dislocation. No worrisome bone lesions. No significant disc disea se. SOFT TISSUES: No findings. OTHER: No other significant finding. IMPRESSION: NEGATIVE STUDY OF THE RIGHT HIP. NO RADIOGRAPHIC EVIDENCE OF ACUTE INJURY. TECHNICAL DOCUMENTATION: JOB ID: [id number] [employer]- All Rights Reserved Reading location - IP/workstation name: [email or web address]
== END ==
LOC: OD 11:42
PROVIDERS: ATTEND Pain Medicine Interventional Pain Medicine
DX: M25.551 Pain in right hip (principal)

== ENCOUNTER 2018-11-18 12:50 | Inpatient (IN) | payer MEDICARE, OTHER ==
--- NOTE | 2018-11-18 14:38 | ER Document Report ---
ED General - General Chief Complaint: Knee Pain Stated Complaint: KNEE PAIN Time Seen by Provider: 11/18/18 14:04 Primary Care Provider: LUZ COX DO [Primary Care Provider] - Follow up as needed Notes: 73-year-old male presents emergency department complaining of 4 days worth of difficulty walking due to knee pain in the bilateral knees but the right is worse than the left. Patient also states his legs are swollen. Patient does have a history of CHF and states this is not at all similar to the past. Mari ent states that he has been transferring from his bed to the chair and back again, he has been unable to move to the point that he is developed a bedsore on his left buttock that has some bleeding. Denies numbness, tingling, bowel or bladder incontinence, trauma or fevers. TRAVEL OUTSIDE OF THE [place] IN LAST 30 DAYS: No - Related Data Allergies/Adverse Reactions: ibuprofen [Ibuprofen] Allergy (Unknown, Verified 03/09/17 08:05) Influenza Virus Vaccines [Influenza Virus Vaccine] Allergy (Verified 03/09/17 08:05) Past Medical History - General Information source: Patient - Social History Smoking Status: Former Smoker Frequency of alcohol use: None Drug Abuse: None Family History: None, COPD, Malignancy Patient has suicidal ideation: No Patient has homicidal ideation: No - Past Medical History Cardiac Medical History: Reports: Hx Congestive Heart Failure, Hx Coronary Artery Disease, Hx Heart Attack - a-fib and hx v tach, Hx Hypertension Pulmonary Medical History: Reports: Hx Asthma, Hx COPD, Hx Pneumonia - 05/2013 bilateral Denies: Hx Bronchitis Neurological Medical History: Denies: Hx Cerebrovascular Accident, Hx Seizures Renal/ Medical History: Denies: Hx Peritoneal Dialysis GI Medical History: Denies: Hx Hepatitis, Hx Hiatal Hernia, Hx Ulcer Musculoskeletal Medical History: Reports Hx Arthritis, 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 Denies: Hx Open Heart Surgery, Hx Pacemaker - Immunizations Hx Diphtheria, Pertussis, Tetanus Vaccination: Yes Hx Pneumococcal Vaccination: 02/19/14 Review of Systems - Review of Systems Constitutional: No symptoms reported EENT: No symptoms reported Cardiovascular: Edema Musculoskeletal: See HPI Skin: See HPI -: Yes All other systems reviewed and negative Physical Exam - Vital signs Vitals: Resp Pulse Ox 19 96 11/18/18 13:08 11/18/18 13:08 - Notes Notes: GENERAL: Alert, interacts well. No acute distress. Obese, difficulty moving himself around on the bed at all. HEAD: Normocephalic, atraumatic EYES: Pupils equal, round and reactive to light, extraocular movements intact. ENT: Oral mucosa moist, tongue midline. NECK: Full range of motion, supple, trachea midline. LUNGS: Clear to auscultation bilaterally, no wheezes, rales or rhonchi, no respiratory distress. HEART: Regular rate and rhythm, no murmurs, gallops, rubs. ABDOMEN: Soft, nontender, nondistended, bowel sounds present in all 4 quadrants. EXTREMITIES: pain with flexion and extension of the knees bilaterally, able to be passively moved through full range of motion at the knees although it does cause significant pain, no ligamentous laxity, minimal joint effusion bilateral knees, right slightly greater than the left, able to actively flex the left knee to approximately 20 degrees, really not able to actively flex the right knee at all. Able to lift the left heel off the bed 2 to 3 cm, not able to lift the right heel off the bed at all. Has to be assisted with rolling onto his right hand side. Sensation is intact across the bilateral lower extremities, there is also no saddle anesthesia. 5 out of 5 great toe raising strength bilaterally. RECTAL: Good tone, sensation intact, able to squeeze my finger. NEUROLOGICAL: Alert and oriented x3, normal speech, patellar DTRs decreased bilaterally. PSYCH: Normal mood, normal affect. SKIN: Warm, Dry, normal turgor, stage II decubitus ulcer to the left buttock approximately 12 cm across, small bleeding, no signs of infection. Course - Re-evaluation Re-evalutation: 11/18/18 17:32 CBC shows mild anemia with hemoglobin 12.2, CMP shows acute renal failure with a BUN of 62 and a creatinine of 1.72, CK elevated at 719, CK-MB elevated at 7.95, urinalysis unremarkable, lumbar spine CT shows severe central canal stenosis at L4-L5 and L5-S1. I am quite concerned about cauda equina in this patient particularly because the lumbar spine CT also reveals market urinary bladder distention and his renal failure likely indicates that he is been having urinary retention for several days now. Patient's first request on where to be transferred is [facility]. I do have a call out to their neurosurgeons at this time. Vega catheter will be put into place as well. 11/18/18 17:[address] Kulwinder Price from [facility] who agrees that this sounds concerning for cauda equina and agrees that the patient should see a neurosurgeon, recommends getting a myelogram as I cannot get an MRI. Unfortunately [facility] is on diversion and he cannot accept this patient. Discussed with Salma Freeman on the transfer line at [facility] who spoke with Dr. Caputo who stated that if this is truly cauda equina they will need a neurologist as well as a neurosurgeon and I should transfer to [facility] instead because [facility] does not have a neurologist. I am currently waiting to speak with transfer line at [facility]. 11/18/18 17:51 Spoke with transfer line, they will call me back when they receive the images. 11/18/18 18:[address] Velázquez the neurosurgeon from [facility], states that the symptoms I am describing are more consistent with a more proximal lesion such as L1 or even higher in the cervical thoracic spine. Agrees that he needs to be transferred for further of examination and imaging however does not think he has an immediate surgical need at this time. Recommends a speak with medicine and/or neurology. Transfer line will connect me with those services. 11/18/18 19:[address] Lehman from the neurology service who was also concerned about possible GBS and suggested a lumbar puncture. Also suggests myelogram of thoracic and lumbar spine. Patient has no decreased sensation of the upper extremities, no weakness of the upper extremities and no decreased reflexes in the by sepsis tendons. Biceps DTRs are 2+ bilaterally. States that if upper extremities are intact we will not need a myelogram of the cervical spine at this time. Also suggests discussing patient with hospitalist service at this hospital for admission while we wait for a bed at [facility]. Given the patient's inability to ambulate, possible need for physical therapy and acute renal failure. Patient has been added to the wait list but they have at least a 36-hour wait for beds. Discussed case with Dr. Mani Comer from the hospitalist service who will consult on the patient while they are in the ER but states he will not admit the patient as he does not feel it is appropriate to admit the patient to a medicine service if we think the patient may end up needing neurosurgery. He will give recommendations on the patient's renal failure after myelogram is complete. Currently he recommends normal saline at 250 an hour for a total of 3 L. Discussed the case with radiologist telephone answering service operator who will have radiology PA come in and do the myelogram and having obtain spinal fluid at the same time. Patient is aware of the further imaging studies that he will be getting and the fact that he is on the wait list at [facility]. I will also add the patient to the wait list at [facility]. I will also call [facility] to see if they will have a bed for this patient sooner. 11/18/18 19:48 I did repeat the patient's examination, DTRs are still 1+ bilaterally in the patellar tendons, patient still has 2 out of 5 muscle strength in the right leg and 3 out of 5 muscle strength in the left leg. No change in physical exam. 11/18/18 20:27 Dr. Paris from the medical service at [facility] has agreed to accept the patient to his service in consultation with neurosurgery. Everybody agrees with continuing to try and get the myelogram of thoracic and lumbar spine. Patient has been added to the wait list. 11/18/18 21:[address] Lou from [facility], states that there is no definite need for neurosurgeon at this time, states that he should either talk to the ER about an ER to ER transfer or to neurology about accepting to their service. Transfer line states that there is no ability to do an ER to ER transfer at this time due to volume. They will try and get me the neurologist. 11/18/18 21:31 Dr. Ryan the neurologist at [facility] is accepted the patient to his service however they also do not have a bed for this patient. He has been added to the wait list. We will push them the results of the CT myelogram when it is done. They will call us if they have a bed. I also did discuss whether or not steroids would have any benefit. Dr. Ryan feels that prophylactically steroids would not have any benefit however if the spinal fluid does show elevated protein that we might consider IVIG and Guillain-Sheets syndrome. 11/18/18 21:32 I have discussed this case with Dr. Freeman who will continue to follow-up on the results of the imaging study, if it shows any spinal lesion he will communicate these findings to the hospitals where the patient is on the wait list and we are ready going to push the films to the hospitals where the patient is on the wait list. 11/19/18 19:19 Hospitalist MARLIN Britton has examined the patient and agreed to admit the patient to their service until a bed is available at a tertiary center to cont inue to manage his symptoms. - Vital Signs Vital signs: Temp Pulse Resp BP Pulse Ox 97.6 F 20 159/58 H 97 11/19/18 08:00 11/19/18 18:02 11/19/18 18:02 11/19/18 17:02 - Laboratory Result Diagrams: 11/18/18 13:13 11/18/18 13:13 Laboratory results interpreted by me: 11/18/18 11/18/18 11/18/18 13:13 13:13 13:13 RBC 3.99 L Hgb 12.4 L Hct 36.6 L PT APTT BUN 62 H Creatinine 1.72 H Est GFR ( Amer) 47 L Est GFR (MDRD) Non-Af 39 L Creatine Kinase 719 H CK-MB (CK-2) CSF Total Protein 11/18/18 11/18/18 11/18/18 13:13 13:13 21:24 RBC Hgb Hct PT 16.3 H APTT 47.0 H BUN Creatinine Est GFR ( Amer) Est GFR (MDRD) Non-Af Creatine Kinase CK-MB (CK-2) 7.95 H CSF Total Protein 79 H Discharge - Discharge Clinical Impression: Unable to ambulate, Renal failure, acute, Urinary retention Condition: Fair Disposition: ADMITTED INPATIENT Admitting Provider: Lindsay (Hospitalist) Unit Admitted: IMCU Referrals: LUZ COX DO [Primary Care Provider] - Follow up as needed
[2018-11-18] MEDS ORDERED: HYDROCODONE/ACETAMINOPHEN 5-325 MG TABLET PO ONE (14:39)
[2018-11-18 14:45] LABS: APPEARANCE,URINE CLEAR; BILIRUBIN,URINE NEGATIVE (NEGATIVE); COLOR,URINE STRAW; GLUCOSE, URINE NEGATIVE (NEGATIVE); KETONES,URINE NEGATIVE (NEGATIVE); LEUKOCYTE ESTERASE,URINE NEGATIVE (NEGATIVE); NITRITE,URINE NEGATIVE (NEGATIVE); PROTEIN,URINE NEGATIVE (NEGATIVE); URINE SPECIFIC GRAVITY 1.012; UROBILINOGEN,URINE NEGATIVE mg/dL (<2.0)
[2018-11-18 14:53] LABS: ABSOLUTE BASOPHILS # (AUTO) 0.1 10^3/uL (0.0-0.2); ABSOLUTE EOSINOPHILS # (AUTO) 0.3 10^3/uL (0.0-0.6); ABSOLUTE MONOCYTES (AUTO) 0.7 10^3/uL (0.1-1.4); ABSOLUTE NEUT (AUTO) 3.8 10^3/uL (1.7-8.2); EOSINOPHILS % (AUTO) 5.4 % (0-6); HEMATOCRIT 36.6 % (37.9-51.0); HEMOGLOBIN 12.4 g/dL (13.5-17.0); MEAN CORPUSCULAR HEMOGLOBIN 31.1 pg (27.0-33.4); MEAN CORPUSCULAR HGB CONC 33.9 g/dL (32.0-36.0); MEAN CORPUSCULAR VOLUME 92 fl (80-97); MONOCYTES % (AUTO) 12.5 % (3-13); PLATELET COUNT 195 10^3/uL (150-450); RED BLOOD COUNT 3.99 10^6/uL (4.35-5.55); RED CELL DISTRIBUTION WIDTH 13.3 % (11.5-14.0); SEGMENTED NEUTROPHILS % (AUTO) 64.1 % (42-78); TOTAL CELLS COUNTED % (AUTO) 100 %; WHITE BLOOD COUNT 5.8 10^3/uL (4.0-10.5)
[2018-11-18 15:00] LABS: ALBUMIN 3.7 g/dL (3.5-5.0); ALKALINE PHOSPHATASE 63 U/L (38-126); ANION GAP 10 (5-19); ASPARTATE AMINO TRANSFERASE 55 U/L (17-59); BILIRUBIN,DIRECT 0.2 mg/dL (0.0-0.4); BILIRUBIN,TOTAL 0.2 mg/dL (0.2-1.3); BLOOD UREA NITROGEN 62 mg/dL (7-20); CALCIUM 9.4 mg/dL (8.4-10.2); CARBON DIOXIDE 25 mmol/L (22-30); CHLORIDE 103 mmol/L (98-107); GLUCOSE 99 mg/dL (75-110); POTASSIUM 4.6 mmol/L (3.6-5.0); TOTAL PROTEIN 6.7 g/dL (6.3-8.2)
[2018-11-18] MEDS ORDERED: NORMAL SALINE 1000 ML 1,000 ML IV ONE (15:45)
--- NOTE | 2018-11-18 16:48 | RADIOLOGY REPORT (SQ) ---
EXAM DESCRIPTION: CT LUMBAR SPINE WITH COMPLETED DATE/TIME: 11/18/2018 4:28 pm REASON FOR STUDY: can't walk COMPARISON: CT lumbar spine 03/24/2016 TECHNIQUE: Axial images acquired through the lumbar spine with intravenous contrast. Patient injected with 50 mL of IV Omnipaque 300. Creatinine 1.7. Images reviewed with lung, soft tissue and bone windows. Reconstructed coronal and sagittal MPR imag es reviewed. All images stored on PACS. All CT scanners at this facility use dose modulation, iterative reconstruction, and/or weight based d osing when appropriate to reduce radiation dose to as low as reasonably achievable (ALARA). [facility]: Dose Right [facility]: CareDose [facility]: Dose Right [facility]: Teradose 4D [facility]: [employer] RADIATION DOSE: 51 mGy. LIMITATIONS: None. FINDINGS: SEGMENTATION: Transitional anatomy with small disc space between the S1 and S2 levels. Th is puts the most inferior well-developed disc space at L5-S1, and advanced bilateral facet arthropath y at L5-S1. ALIGNMENT: Normal. VERTEBRAL BODIES: No fractures. No dislocation. No acute findings. DISCS: T12-L1, L1-2, L2-3, L3-4 are unremarkable. No high-grade central or foraminal stenosis at the se levels. At L4-5, high-grade central canal stenosis results from broad diffuse posterior disc bulging and bulk y bilateral facet and ligament hypertrophy. This is best shown on axial image 84. There is moderate bilateral foraminal narrowing without definite exiting L4 nerve root impingement on axial image 80. At L5-S1, severe central canal stenosis results from broad diffuse posterior disc bulging and very bu lky bilateral facet hypertrophy left greater than right. This is best shown on axial image 93. Ther e is high-grade bilateral foraminal narrowing with partial effacement of the fat around the exiting L 5 nerve roots bilaterally. PEDICLES, TRANSVERSE PROCESSES: No acute fracture. FACETS, POSTERIOR ELEMENTS: No acute fracture. Advanced facet arthropathy bilaterally at L4-5 and L5 -S1 HARDWARE: None in the spine. VISUALIZED RIBS: No fractures. SOFT TISSUES: No paraspinal abscess. No gross epidural abscess OTHER: Marked urinary bladder distention at the bottom edge of the field of view IMPRESSION: Severe central canal stenosis at L4-5 and L5-S1. TECHNICAL DOCUMENTATION: JOB ID: [id number] Quality ID # 436: Final reports with documentation of one or more dose reduction techniques (e.g., Au tomated exposure control, adjustment of the mA and/or kV according to patient size, use of iterative reconstruction technique) 2010 [employer]- All Rights Reserved Reading location - IP/workstation name: [email or web address]
[2018-11-18 19:29] LABS: PROTHROMBIN TIME 16.3 SEC (11.4-15.4)
[2018-11-18] MEDS ORDERED: NORMAL SALINE 1000 ML 1,000 ML IV PRN (20:36)
[2018-11-18] MEDS ORDERED: ZOLPIDEM TARTRATE 5 MG TABLET PO SCH (22:00)
--- NOTE | 2018-11-18 22:12 | RADIOLOGY REPORT (SQ) ---
EXAM DESCRIPTION: MYELOGRAM LUMBAR; LUMBAR PUNCTURE; MYELOGRAM THORACIC; FLUORO/NEEDLE PLACEMENT COMPLETED DATE/TIME: 11/18/2018 9:56 pm; 11/18/2018 9:59 pm REASON FOR STUDY: cant move legs; cant move legs, ? GBS; cant move legs, ?GBS COMPARISON: None. FLUOROSCOPY TIME: 46 seconds. 11 images saved to PACS. TECHNIQUE: Fluoroscopic guided thoracic and lumbar myelogram. LIMITATIONS: None. PROCEDURE: A lumbar puncture was performed initially to obtain CSF for laboratory testing, followed by administration of contrast for thoracic and lumbar myelogram. After written consent and assessment were obtained, the patient was brought into the fluoroscopy room and placed prone on the table. The patient's lower back was prepped in a sterile fashion and an entr y site was selected under live fluoroscopic guidance. The entry site was anesthetized with 1% lidocai ne. A 20 gauge needle was advanced through the skin and into the thecal sac at the level of L 4 -L 5 . An opening pressure of 14 units was obtained. Approximately 9 ml of CSF was drained. Specimens wer e sent to the lab for testing. Contrast was then injected into the thecal sac. Following the procedure the needle was removed and a sterile bandage was placed of the site. CONTRAST: 16 mL Omnipaque 180. IMAGES ACQUIRED: 11 FINDINGS: Contrast is present in the thecal sac. Detailed evaluation to be performed with CT imaging. IMPRESSION: LUMBAR PUNCTURE PERFORMED INITIALLY. THORACIC AND LUMBAR MYELOGRAM SUBSEQUENTLY PERFORM ED FOR CT MYELOGRAPHY. PLEASE REFER TO THE REPORT OF THE CT MYELOGRAM FOR DETAILED DIAGNOSTIC EVALUA TION. COMMENT: Patient medication list reviewed: Yes- Quality ID# [id number]:Eligible professional attests to doc umenting in the medical record they obtained, updated, or reviewed the patient's current medications. . Quality ID 145: Final reports for procedures using fluoroscopy that document radiation exposure amy ness, or exposure time and number of fluorographic images (if radiation exposure indices are not avail able) TECHNICAL DOCUMENTATION: JOB ID: [id number] [facility]- All Rights Reserved Reading location - IP/workstation name: [email or web address]
[2018-11-18] MEDS: CYCLOBENZAPRINE HCL 10 MG TABLET PO SCH (22:23)
[2018-11-18] MEDS: METOPROLOL TARTRATE 50 MG TABLET PO SCH (22:23)
[2018-11-18] MEDS: GABAPENTIN 400 MG CAPSULE PO SCH ×2 (22:24→23:03)
[2018-11-18] MEDS: OXYCODONE HCL IR 5 MG TABLET PO PRN (22:24)
--- NOTE | 2018-11-18 22:28 | RADIOLOGY REPORT (SQ) ---
EXAM DESCRIPTION: CT THORACIC SPINE WITH COMPLETED DATE/TIME: 11/18/2018 10:16 pm REASON FOR STUDY: cant move legs COMPARISON: None. TECHNIQUE: After performing lumbar myelogram, axial images were acquired through the thoracic spine without intravenous contrast. Images reviewed with lung, soft tissue and bone windows. Reconstruct ed coronal and sagittal MPR images reviewed. All images stored on PACS. All CT scanners at this facility use dose modulation, iterative reconstruction, and/or weight based d osing when appropriate to reduce radiation dose to as low as reasonably achievable (ALARA). [facility]: Dose Right [facility]: CareDose [facility]: Dose Right [facility]: Teradose 4D [facility]: [employer] RADIATION DOSE: CT Rad equipment meets quality standard of care and radiation dose reduction techniq ues were employed. CTDIvol: 58.1 mGy. DLP: 2068 mGy-cm. mGy. LIMITATIONS: None. FINDINGS: ALIGNMENT: Normal. VERTEBRAL BODIES: No fractures. No dislocation. No acute findings. HARDWARE: None in the spine. THORACIC DISCS: No significant protrusions. No significant stenosis. PEDICLES, TRANSVERSE PROCESSES: No fractures. No dislocation. No acute findings. FACETS, POSTERIOR ELEMENTS: No fractures. No dislocation. No spinal stenosis. VISUALIZED RIBS: No fractures. SOFT TISSUES: No significant or acute finding in adjacent soft tissues. OTHER: No other significant finding. IMPRESSION: NORMAL CT MYELOGRAM OF THE THORACIC SPINE. NO STENOSIS OR IMPINGEMENT. COMMENT: Patient medication list reviewed: Yes- Quality ID# [id number]:Eligible professional attests to doc umenting in the medical record they obtained, updated, or reviewed the patient's current medications. TECHNICAL DOCUMENTATION: JOB ID: [id number] Quality ID # 436: Final reports with documentation of one or more dose reduction techniques (e.g., Au tomated exposure control, adjustment of the mA and/or kV according to patient size, use of iterative reconstruction technique) 2010 [employer]- All Rights Reserved Reading location - IP/workstation name: [email or web address]
--- NOTE | 2018-11-18 22:36 | RADIOLOGY REPORT (SQ) ---
EXAM DESCRIPTION: CT LUMBAR SPINE WITH COMPLETED DATE/TIME: 11/18/2018 10:16 pm REASON FOR STUDY: cant move legs COMPARISON: None. TECHNIQUE: After performing lumbar myelogram, axial images were acquired through the lumbar spine wi thout intravenous contrast. Images reviewed with lung, soft tissue and bone windows. Reconstructed coronal and sagittal MPR images reviewed. All images stored on PACS. All CT scanners at this facility use dose modulation, iterative reconstruction, and/or weight based d osing when appropriate to reduce radiation dose to as low as reasonably achievable (ALARA). [facility]: Dose Right [facility]: CareDose [facility]: Dose Right [facility]: Teradose 4D [facility]: [employer] RADIATION DOSE: mGy. LIMITATIONS: None. FINDINGS: SEGMENTATION: There is transitional anatomy. There is a rudimentary rib on the right side of the vertebral body labeled L1. There is a small rudimentary disc space at S1-S2 and the most inf erior well-developed disc space is at L5-S1. This corresponds with spinal numbering on the previous CT. ALIGNMENT: Normal. VERTEBRAL BODIES: No fractures. No dislocation. No acute findings. HARDWARE: None in the spine. DISCS: L1-L2: No significant protrusions. No significant stenosis. L2-L3: No significant protrusions. No significant stenosis. L3-L4: No significant protrusions. No significant stenosis. L4-L5: Diffuse broad-based posterior annular disc bulge. Moderate facet arthropathy. Moderate to se kapil spinal stenosis. Bilateral foraminal narrowing. L5-S1: Diffuse broad-based posterior annular disc bulge. Severe facet arthropathy. Severe spinal st enosis with almost no contrast present within the thecal sac. Bilateral foraminal narrowing. PEDICLES, TRANSVERSE PROCESSES: No fractures. No dislocation. No acute findings. FACETS, POSTERIOR ELEMENTS: Lower lumbar facet arthropathy. No fractures. No dislocation. No spin al stenosis. VISUALIZED RIBS: No fractures. SOFT TISSUES: No significant or acute finding in adjacent soft tissues. OTHER: No other significant finding. IMPRESSION: CHRONIC DEGENERATIVE CHANGES WITH MODERATE TO SEVERE SPINAL STENOSIS AT L4-L5 AND L5-S1. THE REMAINDER OF THE LUMBAR SPINE IS UNREMARKABLE. NO ACUTE FINDINGS. COMMENT: Patient medication list reviewed: Yes- Quality ID# [id number]:Eligible professional attests to doc umenting in the medical record they obtained, updated, or reviewed the patient's current medications. TECHNICAL DOCUMENTATION: JOB ID: [id number] Quality ID # [id number]: Final reports with documentation of one or more dose reduction techniques (e.g., Au tomated exposure control, adjustment of the mA and/or kV according to patient size, use of iterative reconstruction technique) 2010 [employer]- All Rights Reserved Reading location - IP/workstation name: [email or web address]
[2018-11-18 22:46] LABS: GLUCOSE,CSF 55 mg/dL (40-70); PROTEIN,CSF 79 mg/dL (12-60)
[2018-11-18] MEDS ORDERED: RIVAROXABAN 10 MG TABLET ONE ×2 (23:08→23:39)
[2018-11-18 23:24] LABS: CSF TUBE NUMBER 1
[2018-11-18 23:25] LABS: APPEARANCE ALL TUBES CLEAR; APPEARANCE TUBE 1 CLEAR; APPEARANCE TUBE 2 CLEAR; APPEARANCE TUBE 3 CLEAR; APPEARANCE TUBE 4 CLEAR; COLOR ALL TUBES COLORLESS; COLOR TUBE 1 COLORLESS; COLOR TUBE 2 COLORLESS; COLOR TUBE 3 COLORLESS; COLOR TUBE 4 COLORLESS
[2018-11-18 23:32] LABS: WHITE BLOOD CELL,CSF 2 /uL (0-5)
[2018-11-18 23:33] LABS: RED BLOOD CELL,CSF 51 /uL (0-10)
[2018-11-18 23:34] LABS: COLOR TUBE 1 COLORLESS; CSF TUBE NUMBER 4
[2018-11-18 23:35] LABS: APPEARANCE ALL TUBES CLEAR; APPEARANCE TUBE 1 CLEAR; APPEARANCE TUBE 2 CLEAR; APPEARANCE TUBE 3 CLEAR; APPEARANCE TUBE 4 CLEAR; COLOR ALL TUBES COLORLESS; COLOR TUBE 2 COLORLESS; COLOR TUBE 3 COLORLESS; COLOR TUBE 4 COLORLESS
[2018-11-18 23:36] LABS: RED BLOOD CELL,CSF 1 /uL (0-10)
[2018-11-18 23:37] LABS: WHITE BLOOD CELL,CSF 2 /uL (0-5)
[2018-11-18] MEDS: RIVAROXABAN 10 MG TABLET PO SCH (23:49)
[2018-11-19] MEDS: OXYCODONE HCL IR 5 MG TABLET PO PRN ×3 (06:34→18:27)
[2018-11-19] MEDS: GABAPENTIN 400 MG CAPSULE PO SCH ×3 (06:34→21:39)
[2018-11-19] MEDS: CYCLOBENZAPRINE HCL 10 MG TABLET PO SCH ×3 (09:26→18:25)
[2018-11-19] MEDS: METOPROLOL TARTRATE 50 MG TABLET PO SCH ×2 (09:27→18:25)
[2018-11-19] MEDS ORDERED: ONDANSETRON HCL INJ/PF 4 MG/2 ML SDV IV PRN (18:24)
[2018-11-19] MEDS ORDERED: NORMAL SALINE 1000 ML 1,000 ML IV PRN ×2 (18:24→18:39)
[2018-11-19] MEDS ORDERED: MAG HYDROX/AL HYDROX/SIMETH SUSP 30 ML UDCUP PO PRN (18:24)
--- NOTE | 2018-11-19 18:27 | ER Document Report ---
Doctor's Note Notes: 11/19/18 18:25 Patient is being reexamined, no complaints, states he is still having pain and still cannot move his legs well. Confirms that he is getting his home medications. I reviewed the CT myelogram and it shows minimal contrast in the thecal sac below L5-S1. These images were all pushed to the 3 accepting [facility] ies last evening. I have not heard back from any of their neurosurgeons. I am awaiting a callback from the accepting neurologist at [facility] to discuss the relative aided protein in the CSF. I have ordered repeat blood work to check on the patient's renal function. Hospitalist is in the department now consulting on the patient. GENERAL: Alert, interacts well. No acute distress. HEAD: Normocephalic, atraumatic EYES: Pupils equal, round and reactive to light, extraocular movements intact. ENT: Oral mucosa moist, tongue midline. NECK: Full range of motion, supple, trachea midline. LUNGS: no respiratory distress. EXTREMITIES: Now only able to elevate the left leg off of the bed by approximately 1 cm with straight leg raise, cannot move the right leg off of the bed at all, sensation grossly intact across legs and feet. Pulses intact dorsalis pedis, no cyanosis, patient is able to flex at the hip and the knee partially but this does cause him a great deal of pain. NEUROLOGICAL: Alert and oriented x3, normal speech. PSYCH: Normal mood, normal affect. SKIN: Warm, Dry, decubitus ulcer to left buttock, stage II. No surrounding erythema. 11/19/18 18:[address] Salazar neurology from [facility] who is aware that the protein in the CSF is 79, feels like his symptoms are more likely coming from the spinal lesion than from Guyon Sheets. No further management recommendations at this time, still agrees that patient needs to be transferred to a facility that has both neurology and neurosurgery where they can do more thorough examination and investigation. Transfer line has received the CT myelogram pictures, has no record of their neurosurgeon having looked at them or been asked to look at them after they were pushed, will contact neurosurgery now and asked them to examine the images. 11/19/18 19:21 After examining the patient to the hospitalist has agreed to admit the patient for further care while we are waiting a bed for this patient at 1 of the tertiary facilities. 11/19/18 19:55 Dr. Rankin the neurosurgeon decorating consultant from [facility] looked at the images and still does not feel the patient has a surgical pathology. Agrees with still transferring to either neurology or medical service when bed is available at tertiary center. 11/20/18 02:25 Hospitalist has agreed to admit the patient while we continue to wait for better tertiary facility. 11/20/18 02:26 BUN and creatinine have responded well to IV hydration and Vega catheter.
[2018-11-19] MEDS ORDERED: HYDROMORPHONE HCL INJ/PF 2 MG/ML AMPULE IV PRN (18:42)
--- NOTE | 2018-11-19 18:44 | PDOC H&P ---
History of Present Illness Admission Date/PCP: 11/19/2018 LUZ COX DO Patient complains of: Difficulty walking x4 days History of Present Illness: SVETLANA DUFF JR is a 73 year old male who presents the ER with a 4-day progressive weakness in his lower extremities with difficulty walking. Patient also states some swelling in bilateral lower legs although he does have a history of congestive heart failure but he states this is not similar to past episodes. Patient states that he has been transferring from his bed to chair and back again has been unable to move to the point that he has developed a bedsore on his left buttock and has some bleeding. He denies any current drug, alcohol or tobacco abuse. He states no treatment prior to arrival all activit ies been aggravating factor. Past Medical History Cardiac Medical History: Reports: Congestive Heart Failure, Coronary Artery Disease, Myocardial Infarction - a-fib and hx v tach, Hypertension Pulmonary Medical History: Reports: Asthma, Chronic Obstructive Pulmonary Disease (COPD), Pneumonia - 05/2013 bilateral Denies: Bronchitis Neurological Medical History: Denies: Seizures GI Medical History: Denies: Hepatitis, Hiatal Hernia Musculoskeltal Medical History: Reports: Arthritis Psychiatric Medical History: Reports: Depression, Post Traumatic Stress Disorder Traumatic Medical History: Reports: Traumatic Brain Injury Hematology: Denies: Anemia, Sickle Cell Disease Past Surgical History Past Surgical History: Reports: Herniorrhaphy, Internal Defibrillator - ICD placement, replaced battery x3, Orthopedic Surgery - Right knee, right hand, right foot, Tonsillectomy - and adenoids Denies: Pacemaker Social History Information Source: Patient Lives with: Family Smoking Status: Former Smoker Frequency of Alcohol Use: None Hx Recreational Drug Use: No Drugs: None Hx Prescription Drug Abuse: No - Advance Directive Resuscitation Status: Full Code Family History Family History: COPD, Malignancy Parental Family History Reviewed: Yes Children Family History Reviewed: Yes Sibling(s) Family History Reviewed.: Yes Medication/Allergy Home Medications: Metoprolol Tartrate 50 mg PO BID 11/07/11 Albuterol Sulfate [Ventolin HFA MDI 18 GM] 2 puff IH Q4HP PRN 06/08/16 Budesonide/Formoterol Fumarate [Symbicort HFA 160-4.5 mcg Inhaler 6 gm] 2 puff I H BID 06/08/16 Cyclobenzaprine HCl 10 mg PO TID 06/08/16 Gabapentin [Neurontin] 800 mg PO TID 06/08/16 Oxycodone HCl [Oxycodone HCl 10 MG Tablet] 20 mg PO 5XDP PRN 06/08/16 Aspirin [Ecotrin 81 mg EC Tablet] 81 mg PO DAILY 12/27/16 Rosuvastatin Calcium 10 mg PO DAILY 12/27/16 Tiotropium [place] [Spiriva] 18 mcg IH BID 12/27/16 Budesonide/Formoterol Fumarate [Symbicort 160-4.5 Mcg Inhaler] 1 puff IH ASDIR PRN 03/09/17 Diltiazem HCl [Diltiazem 24Hr Cd] 120 mg PO DAILY 03/09/17 Allergies/Adverse Reactions: ibuprofen [Ibuprofen] Allergy (Unknown, Verified 03/09/17 08:05) Influenza Virus Vaccines [Influenza Virus Vaccine] Allergy (Verified 03/09/17 08:05) Review of Systems Constitutional: ABSENT: chills, fever(s), headache(s), weight gain, weight loss Eyes: ABSENT: visual disturbances Ears: ABSENT: hearing changes Cardiovascular: ABSENT: chest pain, dyspnea on exertion, edema, orthropnea, palpitations Respiratory: ABSENT: cough, hemoptysis Gastrointestinal: ABSENT: abdominal pain, constipation, diarrhea, hematemesis, hematochezia, nausea, vomiting Genitourinary: ABSENT: dysuria, hematuria Musculoskeletal: PRESENT: muscle weakness, other - Unable to move lower extremities. ABSENT: joint swelling Integumentary: ABSENT: rash, wounds Neurological: ABSENT: abnormal gait, abnormal speech, confusion, dizziness, focal weakness, syncope Psychiatric: ABSENT: anxiety, depression, homidical ideation, suicidal ideation Endocrine: ABSENT: cold intolerance, heat intolerance, polydipsia, polyuria Hematologic/Lymphatic: ABSENT: easy bleeding, easy bruising Physical Exam Vital Signs: Temp Pulse Resp BP Pulse Ox 97.6 F 20 159/58 H 97 11/19/18 08:00 11/19/18 18:02 11/19/18 18:02 11/19/18 17:02 Intake & Output 11/18/18 11/19/18 11/20/18 06:59 06:59 06:59 Intake Total 2000 Output Total 1900 Balance 100 Weight 129.274 kg General appearance: PRESENT: no acute distress, well-developed, well-nourished Head exam: PRESENT: atraumatic, normocephalic Eye exam: PRESENT: conjunctiva pink, EOMI, PERRLA. ABSENT: scleral icterus Ear exam: PRESENT: normal external ear exam Mouth exam: PRESENT: moist, tongue midline Neck exam: ABSENT: carotid bruit, JVD, lymphadenopathy, thyromegaly Respiratory exam: PRESENT: clear to auscultation clara. ABSENT: rales, rhonchi, wheezes Cardiovascular exam: PRESENT: RRR. ABSENT: diastolic murmur, rubs, systolic murmur Pulses: PRESENT: normal dorsalis pedis pul Vascular exam: PRESENT: normal capillary refill GI/Abdominal exam: PRESENT: normal bowel sounds, soft. ABSENT: distended, g uarding, mass, organolmegaly, rebound, tenderness Rectal exam: PRESENT: deferred Extremities exam: PRESENT: full ROM, other - Weakness of lower extremities to the point that he cannot move his lower extremities. Mild swelling bilateral lower extremities. ABSENT: calf tenderness, clubbing, pedal edema Musculoskeletal exam: PRESENT: other - Weakness of lower extremities to the point that he cannot move his lower extremities. Mild swelling bilateral lower extremities Neurological exam: PRESENT: alert, awake, oriented to person, oriented to place, oriented to time, oriented to situation, CN II-XII grossly intact. ABSENT: motor sensory deficit Psychiatric exam: PRESENT: appropriate affect, normal mood. ABSENT: homicidal ideation, suicidal ideation Skin exam: PRESENT: dry, intact, warm. ABSENT: cyanosis, rash Results Laboratory Results: 11/18/18 13:13 11/18/18 13:13 11/18/18 11/18/18 11/18/18 21:24 21:24 21:24 Fluid Tube Number 1 4 CSF Volume 9.0 9.0 CSF Appearance CLEAR CLEAR CSF Color COLORLESS COLORLESS CSF WBC 2 2 CSF RBC 51 1 CSF Color (1) COLORLESS COLORLESS CSF Appearance (1) CLEAR CLEAR CSF Color (2) COLORLESS COLORLESS CSF Appearance (2) CLEAR CLEAR CSF Color (3) COLORLESS COLORLESS CSF Appearance (3) CLEAR CLEAR CSF Color (4) COLORLESS COLORLESS CSF Appearance (4) CLEAR CLEAR CSF Glucose 55 CSF Total Protein 79 H 11/18/18 11/18/18 13:13 13:13 Creatine Kinase 719 H CK-MB (CK-2) 7.95 H Impressions: Lumbar Spine CT 11/18/18 14:29 IMPRESSION: Severe central canal stenosis at L4-5 and L5-S1. Guidance Fluoroscopy 11/18/18 18:58 IMPRESSION: LUMBAR PUNCTURE PERFORMED INITIALLY. THORACIC AND LUMBAR MYELOGRAM SUBSEQUENTLY PERFORMED FOR CT MYELOGRAPHY. PLEASE REFER TO THE REPORT OF THE CT MYELOGRAM FOR DETAILED DIAGNOSTIC EVALUATION. Lumbar Puncture 11/18/18 18:58 IMPRESSION: LUMBAR PUNCTURE PERFORMED INITIALLY. THORACIC AND LUMBAR MYELOGRAM SUBSEQUENTLY PERFORMED FOR CT MYELOGRAPHY. PLEASE REFER TO THE REPORT OF THE CT MYELOGRAM FOR DETAILED DIAGNOSTIC EVALUATION. Myelogram 11/18/18 18:58 IMPRESSION: LUMBAR PUNCTURE PERFORMED INITIALLY. THORACIC AND LUMBAR MYELOGRAM SUBSEQUENTLY PERFORMED FOR CT MYELOGRAPHY. PLEASE REFER TO THE REPORT OF THE CT MYELOGRAM FOR DETAILED DIAGNOSTIC EVALUATION. Myelogram,Lumbar Spine 11/18/18 18:58 IMPRESSION: LUMBAR PUNCTURE PERFORMED INITIALLY. THORACIC AND LUMBAR MYELOGRAM SUBSEQUENTLY PERFORMED FOR CT MYELOGRAPHY. PLEASE REFER TO THE REPORT OF THE CT MYELOGRAM FOR DETAILED DIAGNOSTIC EVALUATION. Thoracic Spine CT 11/18/18 18:58 IMPRESSION: NORMAL CT MYELOGRAM OF THE THORACIC SPINE. NO STENOSIS OR IMPINGEMENT. Assessment and Plan - Diagnosis (1) Muscle weakness Is this a current diagnosis for this admission?: Yes Plan: 11/19/2018-this appears to be mostly affecting the bilateral lower externally's. 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 At this time I will start patient on 0.4 g/kg of IVIG IV daily x5 days. We are awaiting patient bed placement for neurological consult. We will continue to follow (2) Renal failure, acute Qualifiers: Acute renal failure type: unspecified Qualified Code(s): N17.9 - Acute kidney failure, unspecified Is this a current diagnosis for this admission?: Yes Plan: 11/19/2018-hydrate patient overnight with normal saline at 125 mL an hour. Will repeat BMP in the a.m. Further diagnostics based on those findings. (3) Rhabdomyolysis Is this a current diagnosis for this admission?: Yes Plan: 11/19/2018-mild creatinine kinase 719. Will hydrate with normal saline with 125 mL an hour overnight repeat CK in the a.m. (4) Hypertension Is this a current diagnosis for this admission?: Yes Plan: 11/19/2018-continue home metoprolol (5) Insomnia Is this a current diagnosis for this admission?: Yes Plan: 11/19/2018-Ambien 10 mg p.o. nightly - Time Time Spent with patient: 35 or more minutes - Inpatient Certification Based on my medical assessment, after consideration of the patient's comorbidities, presenting symptoms, or acuity I expect that the services needed warrant INPATIENT care.: Yes I certify that my determination is in accordance with my understanding of Medicare's requirements for reasonable and necessary INPATIENT services [42 CFR 412.3e].: Yes Medical Necessity: Other - IV fluids, IVIG
[2018-11-19] MEDS ORDERED: IMMUNE GLOB,GAM CAPRYLATE(IGG) 40 GM, IMMUNE GLOB,GAM CAPRYLATE(IGG) 10 GM in CONTAINER... IV SCH (20:00)
[2018-11-19 20:09] LABS: ABSOLUTE EOSINOPHILS # (AUTO) 0.2 10^3/uL (0.0-0.6); ABSOLUTE MONOCYTES (AUTO) 0.7 10^3/uL (0.1-1.4); ABSOLUTE NEUT (AUTO) 3.4 10^3/uL (1.7-8.2); BASOPHILS % (AUTO) 0.9 % (0-2); EOSINOPHILS % (AUTO) 4.3 % (0-6); HEMATOCRIT 34.5 % (37.9-51.0); HEMOGLOBIN 11.8 g/dL (13.5-17.0); LYMPHOCYTES % (AUTO) 18.6 % (13-45); MEAN CORPUSCULAR HEMOGLOBIN 31.1 pg (27.0-33.4); MEAN CORPUSCULAR HGB CONC 34.3 g/dL (32.0-36.0); MEAN CORPUSCULAR VOLUME 91 fl (80-97); MONOCYTES % (AUTO) 12.7 % (3-13); PLATELET COUNT 187 10^3/uL (150-450); RED BLOOD COUNT 3.81 10^6/uL (4.35-5.55); RED CELL DISTRIBUTION WIDTH 13.1 % (11.5-14.0); SEGMENTED NEUTROPHILS % (AUTO) 63.5 % (42-78); TOTAL CELLS COUNTED % (AUTO) 100 %; WHITE BLOOD COUNT 5.4 10^3/uL (4.0-10.5)
[2018-11-19 20:31] LABS: ALBUMIN 3.3 g/dL (3.5-5.0); ALKALINE PHOSPHATASE 51 U/L (38-126); ANION GAP 7 (5-19); ASPARTATE AMINO TRANSFERASE 31 U/L (17-59); BILIRUBIN,DIRECT 0.2 mg/dL (0.0-0.4); BILIRUBIN,TOTAL 0.2 mg/dL (0.2-1.3); BLOOD UREA NITROGEN 29 mg/dL (7-20); CALCIUM 9.1 mg/dL (8.4-10.2); CARBON DIOXIDE 25 mmol/L (22-30); CHLORIDE 106 mmol/L (98-107); CREATINE KINASE 199 U/L (55-170); GLUCOSE 106 mg/dL (75-110); POTASSIUM 4.9 mmol/L (3.6-5.0); TOTAL PROTEIN 6.1 g/dL (6.3-8.2)
[2018-11-19] MEDS: RIVAROXABAN 10 MG TABLET PO SCH (21:39)
[2018-11-19] MEDS ORDERED: HEPARIN SOD (PORCINE) 5,000 UNIT/ML 1 ML VIAL SUBCUT SCH (22:00)
[2018-11-19] MEDS ORDERED: ZOLPIDEM TARTRATE 5 MG TABLET PO SCH (22:00)
[2018-11-20 00:48] VITALS: BP 130/71
--- NOTE | 2018-11-21 19:20 | PDOC TRANSFER SUMMARY ---
General Admission Date/PCP: 11/19/18 19:19 LUZ COX DO Resuscitation Status: Full Code - Transfer Diagnosis (1) Muscle weakness Is this a current diagnosis for this admission?: Yes Diagnosis Summary: 11/19/2018-this appears to be mostly affecting the bilateral lower externally's. 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 At this time I will start patient on 0.4 g/kg of IVIG IV daily x5 days. We are awaiting patient bed placement for neurological consult. - Transfer Medications Home Medications: Metoprolol Tartrate 50 mg PO BID 11/07/11 Albuterol Sulfate [Ventolin HFA MDI 18 GM] 2 puff IH Q4HP PRN 06/08/16 Budesonide/Formoterol Fumarate [Symbicort HFA 160-4.5 mcg Inhaler 6 gm] 2 puff IH BID 06/08/16 Cyclobenzaprine HCl 10 mg PO TID 06/08/16 Gabapentin [Neurontin] 800 mg PO TID 06/08/16 Oxycodone HCl [Oxycodone HCl 10 MG Tablet] 20 mg PO 5XDP PRN 06/08/16 Aspirin [Ecotrin 81 mg EC Tablet] 81 mg PO DAILY 12/27/16 Rosuvastatin Calcium 10 mg PO DAILY 12/27/16 Tiotropium [place] [Spiriva] 18 mcg IH BID 12/27/16 Budesonide/Formoterol Fumarate [Symbicort 160-4.5 Mcg Inhaler] 1 puff IH ASDIR PRN 03/09/17 Diltiazem HCl [Diltiazem 24Hr Cd] 120 mg PO DAILY 03/09/17 - Allergies Allergies/Adverse Reactions: ibuprofen [Ibuprofen] Allergy (Unknown, Verified 03/09/17 08:05) Influenza Virus Vaccines [Influenza Virus Vaccine] Allergy (Verified 03/09/17 08:05) Hospital Course Hospital Course: SVETLANA DUFF JR is a 73 year old male who presents the ER with a 4-day progressive weakness in his lower extremities with difficulty walking. Patient also states some swelling in bilateral lower legs although he does have a history of congestive heart failure but he states this is not similar to past episodes. Patient states that he has been transferring from his bed to chair and back again has been unable to move to the point that he has developed a bedsore on his left buttock and has some bleeding. He denies any current drug, alcohol or tobacco abuse. He states no treatment prior to arrival all activities been aggravating factor. This appears to be mostly affecting the bilateral lower externally's. Patient does have a protein count of 79 and no white cells in his spinal fluid suggesting Colby Sheets syndrome. At this time I will start patient on 0.4 g/kg of IVIG IV daily x5 days. We are awaiting patient bed placement for neurological consult. Bed is available for the patient's transfer as previously planned to [facility]. Physical Exam Vital Signs: See history and physical performed by Barry Britton 3 hours prior to discharge. Temp Pulse Resp BP Pulse Ox 98.0 F 65 20 130/71 H 96 11/20/18 00:15 11/20/18 00:15 11/20/18 00:15 11/20/18 00:15 11/20/18 00:15 Intake & Output 11/19/18 11/20/18 11/21/18 23:59 23:59 23:59 Intake Total 500 240 Output Total 1000 600 Balance -500 -360 Weight 127.6 kg Results Laboratory Results: 11/19/18 20:00 11/19/18 20:00 11/18/18 21:24 Cerebral Spinal Fluid - Tube 3 (Csf) Gram Stain - Final 11/18/18 21:24 Cerebral Spinal Fluid - Tube 3 (Csf) CSF Culture - Final NO GROWTH 3 DAYS 11/18/18 11/18/18 11/19/18 13:13 13:13 20:00 Creatine Kinase 719 H 199 H CK-MB (CK-2) 7.95 H 11/19/18 20:00 Creatine Kinase CK-MB (CK-2) 1.95 Impressions: Lumbar Spine CT 11/18/18 14:29 IMPRESSION: Severe central canal stenosis at L4-5 and L5-S1. Guidance Fluoroscopy 11/18/18 18:58 IMPRESSION: LUMBAR PUNCTURE PERFORMED INITIALLY. THORACIC AND LUMBAR MYELOGRAM SUBSEQUENTLY PERFORMED FOR CT MYELOGRAPHY. PLEASE REFER TO THE REPORT OF THE CT MYELOGRAM FOR DETAILED DIAGNOSTIC EVALUATION. Lumbar Puncture 11/18/18 18:58 IMPRESSION: LUMBAR PUNCTURE PERFORMED INITIALLY. THORACIC AND LUMBAR MYELOGRAM SUBSEQUENTLY PERFORMED FOR CT MYELOGRAPHY. PLEASE REFER TO THE REPORT OF THE CT MYELOGRAM FOR DETAILED DIAGNOSTIC EVALUATION. Myelogram 11/18/18 18:58 IMPRESSION: LUMBAR PUNCTURE PERFORMED INITIALLY. THORACIC AND LUMBAR MYELOGRAM SUBSEQUENTLY PERFORMED FOR CT MYELOGRAPHY. PLEASE REFER TO THE REPORT OF THE CT MYELOGRAM FOR DETAILED DIAGNOSTIC EVALUATION. Myelogram,Lumbar Spine 11/18/18 18:58 IMPRESSION: LUMBAR PUNCTURE PERFORMED INITIALLY. THORACIC AND LUMBAR MYELOGRAM SUBSEQUENTLY PERFORMED FOR CT MYELOGRAPHY. PLEASE REFER TO THE REPORT OF THE CT MYELOGRAM FOR DETAILED DIAGNOSTIC EVALUATION. Thoracic Spine CT 11/18/18 18:58 IMPRESSION: NORMAL CT MYELOGRAM OF THE THORACIC SPINE. NO STENOSIS OR IMPINGEMENT. Plan Discharge Plan: Bed is available for the patient's transfer as previously planned to [facility]. Time Spent: Greater than 30 Minutes
== END 2018-11-20 01:54 | disposition short-term general hospital (02) | DRG 95 ==
LOC: ER 12:50 → EH 11-19 19:19 → 3W 11-19 20:57
PROVIDERS: ADMIT Hospitalist; ATTEND Hospitalist
PROC: 009U3ZX Drainage of Spinal Canal, Percutaneous Approach, Diagnostic (ICD-10-PCS; principal; 2018-11-18)
PROC: B01B1ZZ Fluoroscopy of Spinal Cord using Low Osmolar Contrast (ICD-10-PCS; 2018-11-18)
PROC: 30233S0 Transfusion of Autologous Globulin into Peripheral Vein, Percutaneous Approach (ICD-10-PCS; 2018-11-19)
DX: G61.0 Guillain-Barre syndrome (principal); N17.9 Acute kidney failure, unspecified; M62.82 Rhabdomyolysis; I25.10 Atherosclerotic heart disease of native coronary artery without angina pectoris; I10 Essential (primary) hypertension; J44.9 Chronic obstructive pulmonary disease, unspecified; F32.9 Major depressive disorder, single episode, unspecified; F43.10 Post-traumatic stress disorder, unspecified; G47.00 Insomnia, unspecified; L89.322 Pressure ulcer of left buttock, stage 2; D64.9 Anemia, unspecified; I25.2 Old myocardial infarction; Z79.899 Other long term (current) drug therapy; Z79.891 Long term (current) use of opiate analgesic; Z79.82 Long term (current) use of aspirin; Z88.7 Allergy status to serum and vaccine; Z88.8 Allergy status to other drugs, medicaments and biological substances; Z87.820 Personal history of traumatic brain injury; Z95.810 Presence of automatic (implantable) cardiac defibrillator; Z87.891 Personal history of nicotine dependence
CPT/HCPCS: 36415; 51701; 62270; 72129; 72132; 72255; 72265; 72270; 77002; 80053; 81001; 82550; 82553; 82945; 84157; 85025; 85610; 85730; 87070; 87205; 89050; 96360; 99285; J1561; J1170; J3490; J7030

== ENCOUNTER → 2019-09-10 | Outpatient (CLI) | payer MEDICARE, OTHER ==
--- NOTE | 2019-09-10 15:19 | RADIOLOGY REPORT (SQ) ---
EXAM DESCRIPTION: FOOT LEFT COMPLETE IMAGES COMPLETED DATE/TIME: 09/10/2019 3:06 pm REASON FOR STUDY: OSTEOMYELITIS M86.372 CHRONIC MULTIFOCAL OSTEOMYELITIS, LEFT ANKLE AND DANIELA COMPARISON: 05/11/2015 NUMBER OF VIEWS: Three views. TECHNIQUE: AP, lateral and oblique with weight bearing radiographic images acquired of the left foot . LIMITATIONS: None. FINDINGS: MINERALIZATION: Normal. BONES: No acute fracture or dislocation. No worrisome bone lesions. No evidence of osteomyelitis. JOINTS: Degenerative changes in the tarsal bones. SOFT TISSUES: No swelling. No calcifications. OTHER: Prominent calcaneal spurs. IMPRESSION: No conventional radiographic evidence of active osteomyelitis. Other changes as describ ed. TECHNICAL DOCUMENTATION: JOB ID: [id number] 2010 [employer]- All Rights Reserved Reading location - IP/workstation name: [email or web address]
== END ==
LOC: OD 14:53
PROVIDERS: ATTEND Podiatrist Foot & Ankle Surgery
DX: M86.372 Chronic multifocal osteomyelitis, left ankle and foot (principal)

== ENCOUNTER → 2019-09-16 | Outpatient (CLI) | payer MEDICARE, OTHER ==
--- NOTE | 2019-09-16 15:28 | RADIOLOGY REPORT (SQ) ---
EXAM DESCRIPTION: NM 3 PHASE BONE SCAN IMAGES COMPLETED DATE/TIME: 09/16/2019 2:40 pm REASON FOR STUDY: OSTEOMYELITIS (M86.9), OTHER ACUTE OSTEOMYELITIS, LEFT ANKLE AND FOOT (M86. M86.9 OSTEOMYELITIS, UNSPECIFIED M86.172 OTHER ACUTE OSTEOMYELITIS, LEFT ANKLE AND FOOT COMPARISON: Left foot 09/10/2019 RADIONUCLIDE AND DOSE: 20 millicuries Tc99m HDP. The route of agent administration: Intravenous. ADDITIONAL DRUGS AND DOSES: None. TECHNIQUE: Following injection of the radiopharmaceutical, serial blood flow images acquired. Equil ibrium blood pool images then acquired. Routine delayed images at 3 hours acquired of the areas of c linical concern with additional focused images as needed. AREA OF INTEREST: Left ankle and foot LIMITATIONS: None. FINDINGS: VASCULAR FLOW IMAGES: There is mild hyperemia to the left ankle and foot, specifically to the region of the head of the 1st metatarsal and the great toe. BLOOD POOL IMAGES: Blood pool images show increased uptake in the tarsal region and in the great tail . There is mild increased uptake at the ankle. BONES: Delayed images show focal uptake in the region of the head of the 1st metatarsal and in the gr eat tail, specifically the distal phalanx. There is less well-defined uptake in the distal fibula on both sides and the posterior calcaneus on each side. KIDNEYS: Symmetric excretion without obstruction. OTHER: No other significant finding. IMPRESSION: There is hyperemia to the left ankle and foot with increased blood pooling. Delayed lora ging findings as described. Cannot exclude osteomyelitis in the left great toe. COMMENT: Quality measure 147: Current bone scan is compared with any available plain radiographs, p rior bone scans, and CT/MRI. TECHNICAL DOCUMENTATION: JOB ID: [id number] 2010 [employer]- All Rights Reserved Reading location - IP/workstation name: [email or web address]
== END ==
LOC: RAD 09:51
PROVIDERS: ATTEND Podiatrist Foot & Ankle Surgery
DX: M86.9 Osteomyelitis, unspecified (principal); M86.172 Other acute osteomyelitis, left ankle and foot
CPT/HCPCS: 78315; A9503; Q9969

== ENCOUNTER 2019-10-22 15:58 | Emergency (ER) | payer MEDICARE, OTHER ==
[2019-10-22 16:29] VITALS: BP 110/68
--- NOTE | 2019-10-22 16:38 | ER Document Report ---
ED Medical Screen (RME) - General Stated Complaint: HIP PAIN Time Seen by Provider: 10/22/19 16:31 Primary Care Provider: ISACC LTUZ DPM [Primary Care Provider] - Follow up as needed Mode of Arrival: Ambulatory Information source: Patient Notes: Patient states that he has an infected left toe and has been seeing a chaplaincy and his primary doctor regarding this. Patient reports being on antibiotics for some time without improvement. Patient states he is here to get a PICC line and his primary doctor is attempting to set up home health for IV infusions. I have greeted and performed a rapid initial assessment of this patient. A comprehensive ED assessment and evaluation of the patient, analysis of test results and completion of the medical decision making process will be conducted by additional ED providers. TRAVEL OUTSIDE OF THE [place] IN LAST 30 DAYS: No - Related Data Allergies/Adverse Reactions: ibuprofen [Ibuprofen] Allergy (Unknown, Verified 03/09/17 08:05) Influenza Virus Vaccines [Influenza Virus Vaccine] Allergy (Verified 03/09/17 08:05) Past Medical History - Past Medical History Cardiac Medical History: Reports: Hx Congestive Heart Failure, Hx Coronary Artery Disease, Hx Heart Attack - a-fib and hx v tach, Hx Hypertension Pulmonary Medical History: Reports: Hx Asthma, Hx COPD, Hx Pneumonia - 05/2013 bilateral Denies: Hx Bronchitis Neurological Medical History: Denies: Hx Cerebrovascular Accident, Hx Seizures Renal/ Medical History: Denies: Hx Peritoneal Dialysis GI Medical History: Denies: Hx Hepatitis, Hx Hiatal Hernia, Hx Ulcer Musculoskeltal Medical History: Reports Hx Arthritis, Reports Hx Musculoskeletal Trauma Psychiatric Medical History: Reports: Hx Depression, Hx Post Traumatic Stress Disorder Traumatic Medical History: Reports: Hx Traumatic Brain Injury Infectious Medical History: Denies: Hx Hepatitis Past Surgical History: Reports: Hx Adenoidectomy, Hx Cardiac Surgery - Defib, Hx Herniorrhaphy, Hx Internal Defibrillator - ICD placement, replaced battery x3, Hx Orthopedic Surgery - Right knee, right hand, right foot, Hx Tonsillectomy - and adenoids. Denies: Hx Open Heart Surgery, Hx Pacemaker - Immunizations Hx Diphtheria, Pertussis, Tetanus Vaccination: Yes Physical Exam - Vital signs Vitals: Temp Pulse Resp BP Pulse Ox 98.0 F 75 20 110/68 94 10/22/19 16:26 10/22/19 16:10/22/19 16:26 10/22/19 16:10/22/19 16:26 - General General appearance: Alert In distress: None - Respiratory Respiratory status: No respiratory distress Course - Vital Signs Vital signs: Temp Pulse Resp BP Pulse Ox 98.0 F 75 20 110/68 94 10/22/19 16:10/22/19 16:10/22/19 16:10/22/19 16:10/22/19 16:26 Doctor's Discharge - Discharge Referrals: ISACC LUTZ DPM [Primary Care Provider] - Follow up as needed
--- NOTE | 2019-10-22 17:20 | ER Document Report ---
ED General - General Chief Complaint: Wound Infection Stated Complaint: HIP PAIN Time Seen by Provider: 10/22/19 16:31 Primary Care Provider: ISACC LUTZ DPM [Primary Care Provider] - Follow up as needed Mode of Arrival: Ambulatory Information source: Patient Notes: Has been treating him with clindamycin and before that another antibiotic for an infected great toenail. Patient states it started weeks ago after he tried to remove an ingrown toenail on his own. Patient states that the antibiotics have not been managing the infection and he is here for management. Patient denies nausea vomiting diarrhea cough cold fevers or chills. TRAVEL OUTSIDE OF THE [place] IN LAST 30 DAYS: No - HPI Onset: Other Quality of pain: Achy, Fullness, Pressure Severity: Moderate Pain Level: 2 Associated symptoms: None Exacerbated by: Standing, Movement, Walking Relieved by: Denies Similar symptoms previously: Yes Recently seen / treated by doctor: Yes - Related Data Allergies/Adverse Reactions: ibuprofen [Ibuprofen] Allergy (Unknown, Verified 03/09/17 08:05) Influenza Virus Vaccines [Influenza Virus Vaccine] Allergy (Verified 03/09/17 08:05) Past Medical History - General Information source: Patient - Social History Smoking Status: Unknown if Ever Smoked Family History: None, COPD, Malignancy Patient has homicidal ideation: No - Past Medical History Cardiac Medical History: Reports: Hx Congestive Heart Failure, Hx Coronary Artery Disease, Hx Heart Attack - a-fib and hx v tach, Hx Hypertension Pulmonary Medical History: Reports: Hx Asthma, Hx COPD, Hx Pneumonia - 05/2013 bilateral Denies: Hx Bronchitis Neurological Medical History: Denies: Hx Cerebrovascular Accident, Hx Seizures Renal/ Medical History: Denies: Hx Peritoneal Dialysis GI Medical History: Denies: Hx Hepatitis, Hx Hiatal Hernia, Hx Ulcer Musculoskeletal Medical History: Reports Hx Arthritis, Reports Hx Musculoskeletal Trauma Psychiatric Medical History: Reports: Hx Depression, Hx Post Traumatic Stress Disorder Traumatic Medical History: Reports: Hx Traumatic Brain Injury Infectious Medical History: Denies: Hx Hepatitis Past Surgical History: Reports: Hx Adenoidectomy, Hx Cardiac Surgery - Defib, Hx Herniorrhaphy, Hx Internal Defibrillator - ICD placement, replaced battery x3, Hx Orthopedic Surgery - Right knee, right hand, right foot, Hx Tonsillectomy - and adenoids. Denies: Hx Open Heart Surgery, Hx Pacemaker - Immunizations Hx Diphtheria, Pertussis, Tetanus Vaccination: Yes Hx Pneumococcal Vaccination: 02/19/14 Review of Systems - Review of Systems Constitutional: No symptoms reported EENT: No symptoms reported Cardiovascular: No symptoms reported Respiratory: No symptoms reported Gastrointestinal: No symptoms reported Genitourinary: No symptoms reported Male Genitourinary: No symptoms reported Musculoskeletal: See HPI Skin: See HPI Hematologic/Lymphatic: No symptoms reported Neurological/Psychological: No symptoms reported -: Yes All other systems reviewed and negative Physical Exam - Vital signs Vitals: Temp Pulse Resp BP Pulse Ox 98.0 F 75 20 110/68 94 10/22/19 16:26 10/22/19 16:26 10/22/19 16:26 10/22/19 16:26 10/22/19 16:26 - Notes Notes: PHYSICAL EXAMINATION: GENERAL: Well-appearing, well-nourished and in no acute distress. HEAD: Atraumatic, normocephalic. EYES: Pupils equal round and reactive to light, extraocular movements intact, sclera anicteric, conjunctiva are normal. ENT: nares patent, oropharynx clear without exudates. Moist mucous membranes. NECK: Normal range of motion, supple without lymphadenopathy, no appreciable JVD LUNGS: Lungs clear to auscultation bilaterally and equal. No wheezes rales or rhonchi. HEART: Regular rate and rhythm without murmurs ABDOMEN: Soft, nontender, normal bowel sounds. No guarding, no rebound. No masses appreciated. EXTREMITIES: Active full range of motion, no pitting or edema. No cyanosis. 2+ pulses x4... Left great toe is swollen erythematous and shows signs of infection. There is tenderness to palpation or having pressure on it such as walking. There is purulent discharge to the medial aspect of the toenail. NEUROLOGICAL: No focal neurological deficits. Moves all extremities spontaneously and on command. SKIN: Warm, Dry, and intact. Normal turgor, no rashes or lesions noted. Course - Re-evaluation Re-evalutation: 10/22/19 17:39 We did discuss with radiology they stated to give the patient a form for outpatient testing and they would gladly place a PICC line tomorrow patient is understanding and is stable at time of discharge. - Vital Signs Vital signs: Temp Pulse Resp BP Pulse Ox 98.0 F 75 20 110/68 94 10/22/19 16:26 10/22/19 16:26 10/22/19 16:26 10/22/19 16:26 10/22/19 16:26 Discharge - Discharge Clinical Impression: Abscess or cellulitis of foot Condition: Stable Disposition: HOME, SELF-CARE Instructions: Soap Cleansing ([facility]) Forms: Follow-Up Radiology Testing Referrals: ISACC LUTZ DPM [Primary Care Provider] - Follow up as needed
== END 2019-10-22 18:00 | disposition home or self-care (01) ==
LOC: ER 15:58
DX: L03.039 Cellulitis of unspecified toe (principal); I25.10 Atherosclerotic heart disease of native coronary artery without angina pectoris; I10 Essential (primary) hypertension; J44.9 Chronic obstructive pulmonary disease, unspecified; Z95.810 Presence of automatic (implantable) cardiac defibrillator; Z88.8 Allergy status to other drugs, medicaments and biological substances; Z88.7 Allergy status to serum and vaccine
CPT/HCPCS: 99281

== ENCOUNTER → 2019-10-28 | Day surgery (SDC) | payer MEDICARE, OTHER ==
--- NOTE | 2019-10-28 14:50 | RADIOLOGY REPORT (SQ) ---
EXAM DESCRIPTION: PICC INSERTION IMAGES COMPLETED DATE/TIME: 10/28/2019 2:32 pm REASON FOR STUDY: SUBACUTE OSTEOMYELITIS, LEFT ANKLE AND FOOT M86.272 SUBACUTE OSTEOMYELITIS, LEFT ANKLE AND FOOT COMPARISON: None. FLUOROSCOPY TIME: 5.1 minutes 3 images saved to PACS. TECHNIQUE: Fluoroscopic and ultrasound guided PICC placement. LIMITATIONS: None. PROCEDURE: After written consent and assessment were obtained, the patient was brought into the fluo roscopy room and placed supine on the table. Ultrasound evaluation of potential access sites were per formed. After successfully identifying a patent left arm basilic vein, the left upper arm was prepped and draped in a sterile fashion along with the ultrasound probe. The entry site was anesthetized wit h 1% lidocaine. A 21 gauge 7 cm needle was advanced through the skin and into the basilic vein under live ultrasound guidance. An ultrasound image was saved to PACS confirming access site. A .018 guid e wire was then inserted through the needle and into the venous system. The needle was then removed a nd an 11 blade scalpel was used to make a 1cm skin incision. A 5 fr peel-away sheath was advanced ov er the wire and into the venous system. A measurement was then made using the existing wire and live fluoroscopic guidance. The wire was then removed and trimmed. The PICC was advanced through the peel- away sheath and into the venous system. The peel-away sheath was removed and the catheter was adhered to the patients arm with a stat lock. The catheter was then aspirated and flushed and a sterile band age was placed over the access site. A fluoroscopic spot image was saved to PACS confirming the cath eter tip within the SVC. IMPRESSION: SUCCESSFUL PLACEMENT OF A 5 FR DUAL LUMEN 50 CM PICC IN THE LEFT BASILIC VEIN. COMMENT: Patient medication list reviewed: Yes- Quality ID# 130:Eligible professional attests to doc umenting in the medical record they obtained, updated, or reviewed the patient's current medications. . Quality ID 145: Final reports for procedures using fluoroscopy that document radiation exposure amy ness, or exposure time and number of fluorographic images (if radiation exposure indices are not avail able) Quality ID #76: The patient was prepped and draped using maximum sterile barrier technique including cap, mask, sterile gown, sterile gloves, a large sterile sheet, hand hygiene, and 2% Chlorhexidine fo r cutaneous antisepsis. When ultrasound is used, sterile ultrasound techniques are followed requiring sterile gel and sterile probes. TECHNICAL DOCUMENTATION: JOB ID: [id number] 2010 [employer]- All Rights Reserved rev-07/06 Reading location - IP/workstation name: [email or web address]
== END ==
LOC: RAD 13:22
PROVIDERS: ATTEND Family Medicine
DX: M86.272 Subacute osteomyelitis, left ankle and foot (principal)
CPT/HCPCS: 36573; J1642

== ENCOUNTER → 2019-11-07 | Outpatient (CLI) | payer MEDICARE, OTHER ==
--- NOTE | 2019-11-07 12:41 | RADIOLOGY REPORT (SQ) ---
EXAM DESCRIPTION: FOOT LEFT COMPLETE IMAGES COMPLETED DATE/TIME: 11/07/2019 11:16 am REASON FOR STUDY: CHRONIC MULTIFOCAL OSTEOMYELITIS, LEFT ANKLE AND FOOT M86.372 CHRONIC MULTIFOCAL OSTEOMYELITIS, LEFT ANKLE AND DANIELA COMPARISON: None. NUMBER OF VIEWS: Three views. TECHNIQUE: AP, lateral and oblique radiographic images acquired of the left foot. LIMITATIONS: None. FINDINGS: MINERALIZATION: Normal. BONES: No osteomyelitis. No fracture or dislocation. Plantar and posterior calcaneal spurs. JOINTS: Degenerative joint disease in the 1st metatarsal-phalangeal joint. SOFT TISSUES: No soft tissue swelling. No foreign body. OTHER: No other significant finding. IMPRESSION: No osteomyelitis. Calcaneal spurs. Degenerative joint disease in the 1st metatarsal-ph alangeal joint. TECHNICAL DOCUMENTATION: JOB ID: [id number] 2010 [employer]- All Rights Reserved Reading location - IP/workstation name: [email or web address]
== END ==
LOC: OD 11:02
PROVIDERS: ATTEND Podiatrist Foot & Ankle Surgery
DX: M86.372 Chronic multifocal osteomyelitis, left ankle and foot (principal); M19.072 Primary osteoarthritis, left ankle and foot; M77.32 Calcaneal spur, left foot

== ENCOUNTER 2019-11-18 14:01 | Inpatient (IN) | payer MEDICARE, OTHER ==
--- NOTE | 2019-11-18 17:24 | ER Document Report ---
ED General - General Chief Complaint: Low Blood Pressure Stated Complaint: BLOOD PRESSURE PROBLEM Time Seen by Provider: 11/18/19 15:59 Primary Care Provider: LUZ COX DO [Primary Care Provider] - Follow up as needed TRAVEL OUTSIDE OF THE [place] IN LAST 30 DAYS: No - HPI Notes: Patient is a 74-year-old male with a history of Brugada syndrome, hypertension, and recent left great toe osteomyelitis, who presents to the emergency department for evaluation of low blood pressure. He states he thinks he "overdid it" this morning. He was cooking breakfast for his grandchildren, generally had an increase in his activity today. His home health nurse found his blood pressure to be low. He states his blood pressure usually runs in the 100s to 110 range. He states he did feel dizzy, but now feels normal. He denies any recent changes in medications, with the exception of his antibiotic. The patient does have a PICC line in his left upper extremity. He was receiving an antibiotic, he is unsure as to what it was. He states that he is not receiving it now. He was told that the infection in his left great toe had improved. He is going to have repeat x-rays performed in November, if they continue to be normal, PICC line will be removed. He has had no fevers or ch ills. No nausea or vomiting. He is eating and drinking normally. He states he really thinks he just was too active. The patient has absolutely no symptoms at this time, has been taking his medications as prescribed. - Related Data Allergies/Adverse Reactions: ibuprofen [Ibuprofen] Allergy (Unknown, Verified 03/09/17 08:05) Influenza Virus Vaccines [Influenza Virus Vaccine] Allergy (Verified 03/09/17 08:05) Home Medications: Cardizem, Flexiril, Gabapentin, Lisinopril, Metoprolol, Oxycodone, Zoloft. Past Medical History - General Information source: Patient - Social History Smoking Status: Never Smoker Frequency of alcohol use: None Drug Abuse: None Family History: None, COPD, Malignancy - Past Medical History Cardiac Medical History: Reports: Hx Congestive Heart Failure, Hx Coronary Artery Disease, Hx Heart Attack - a-fib and hx v tach, Brugada syndrome, Hx Hypertension Pulmonary Medical History: Reports: Hx Asthma, Hx COPD, Hx Pneumonia - 05/2013 bilateral Denies: Hx Bronchitis Neurological Medical History: Denies: Hx Cerebrovascular Accident, Hx Seizures Renal/ Medical History: Denies: Hx Peritoneal Dialysis GI Medical History: Denies: Hx Hepatitis, Hx Hiatal Hernia, Hx Ulcer Musculoskeletal Medical History: Reports Hx Arthritis, Reports Hx Musculoskelet al Trauma Psychiatric Medical History: Reports: Hx Depression, Hx Post Traumatic Stress Disorder Traumatic Medical History: Reports: Hx Traumatic Brain Injury Infectious Medical History: Denies: Hx Hepatitis Past Surgical History: Reports: Hx Adenoidectomy, Hx Cardiac Surgery - Defib, Hx Herniorrhaphy, Hx Internal Defibrillator - ICD placement, replaced battery x3, Hx Orthopedic Surgery - Right knee, right hand, right foot, Hx Tonsillectomy - and adenoids. Denies: Hx Open Heart Surgery, Hx Pacemaker - Immunizations Hx Diphtheria, Pertussis, Tetanus Vaccination: Yes Hx Pneumococcal Vaccination: 02/19/14 Review of Systems - Review of Systems Constitutional: Weakness EENT: No symptoms reported Cardiovascular: No symptoms reported Respiratory: No symptoms reported Gastrointestinal: No symptoms reported Genitourinary: No symptoms reported Musculoskeletal: See HPI Skin: No symptoms reported Neurological/Psychological: No symptoms reported -: Yes All other systems reviewed and negative Physical Exam - Vital signs Vitals: Resp 12 11/18/19 14:16 - Notes Notes: Vital signs reviewed, please refer to chart. Head is normocephalic, atraumatic. Pupils equal round, reactive to light. Neck is supple without meningismus. Heart is regular rate and rhythm. Lungs are clear to auscultation bilaterally. Abdomen is soft, nontender, normoactive bowel sounds throughout. Extremities without cyanosis, clubbing. Posterior calves are nontender. Peripheral pulses are equal. Skin is warm and dry. Examination of the left great toe yields a mild amount of edema and some reactive appearing erythema, but no calor. He has had his toenail recently removed, granulation tissue is noted. No purulence, no l lymphangitic streaking. Patient is awake, alert, neurological exam is nonfocal. Course - Re-evaluation Re-evalutation: 11/18/19 17:23 Patient presents to the emergency department for evaluation. His blood pressure was noted to be low and home health nurse took his pressure, as well as when it was measured by EMS. He was given IV fluids. The patient has been normotensive since then, normal maps. He has no symptoms at this time. Will evaluate for sites of infection given his recent osteomyelitis, cultures are pending. Patient is currently stable, we will continue to monitor. 11/18/19 19:34 Patient's laboratory investigations reveal new acute kidney injury. I did review recent labs. He does have a vancomycin trough which was found to be normal 7 days ago. I do not see any peak vancomycin levels. The patient denies any other recent changes. He remains normotensive. He does not have any significant electrolyte abnormalities. I spoke with Dr. Muniz. She agrees that admission seems appropriate. Consultation order was placed. I spoke with Dr. Marinelli, he will admit the patient for further care. - Vital Signs Vital signs: Temp Pulse Resp BP Pulse Ox 98.6 F 83 12 114/64 100 11/18/19 14:23 11/18/19 14:23 11/18/19 19:00 11/18/19 19:01 11/18/19 19:01 - Laboratory Result Diagrams: 11/18/19 14:58 11/18/19 14:58 Laboratory results interpreted by me: 11/18/19 11/18/19 11/18/19 14:58 14:58 14:58 RBC 3.92 L Hgb 12.6 L Hct 36.5 L PT 17.9 H VBG pH Sodium 134.2 L BUN 29 H Creatinine 4.47 H Est GFR ( Amer) 16 L Est GFR (MDRD) Non-Af 13 L Total Protein 6.0 L 11/18/19 14:58 RBC Hgb Hct PT VBG pH 7.21 L Sodium BUN Creatinine Est GFR ( Amer) Est GFR (MDRD) Non-Af Total Protein - Diagnostic Test Radiology reviewed: Reports reviewed Radiology results interpreted by me: 11/18/19 19:35 Chest X-Ray 11/18/19 17:20 IMPRESSION: NO ACUTE RADIOGRAPHIC FINDING IN THE CHEST. Toe X-Ray 11/18/19 17:20 IMPRESSION: No evidence of osteomyelitis. Re- demonstration of 1st metatarsophalangeal joint degenerative changes. - EKG Interpretation by Me Additional EKG results interpreted by me: 11/18/19 19:35 Sinus mechanism with a rate of 60 bpm. Left axis deviation. Incomplete right bundle branch block. No ST elevation concerning for acute infarction. No significant change compared to prior study of February 2017. Discharge - Discharge Clinical Impression: Renal failure, acute Condition: Stable Disposition: ADMITTED INPATIENT Admitting Provider: Isis (Hospitalist) Unit Admitted: Medical Floor Referrals: LUZ COX DO [Primary Care Provider] - Follow up as needed
[2019-11-18 17:55] LABS: INTERNATIONAL RATION (INR) 1.46; PROTHROMBIN TIME 17.9 SEC (11.4-15.4)
[2019-11-18 17:58] LABS: VENOUS BLOOD BASE EXCESS -5.4 mmol/L; VENOUS BLOOD HCO3 23.6 mmol/L (20-32); VENOUS BLOOD PCO2 59.8 mmHg (35-63); VENOUS BLOOD PH 7.21 (7.30-7.42)
[2019-11-18 18:01] LABS: ABSOLUTE EOSINOPHILS # (AUTO) 0.3 10^3/uL (0.0-0.6); ABSOLUTE LYMPHOCYTES (AUTO) 1.5 10^3/uL (0.5-4.7); ABSOLUTE MONOCYTES (AUTO) 0.8 10^3/uL (0.1-1.4); ABSOLUTE NEUT (AUTO) 5.9 10^3/uL (1.7-8.2); BASOPHILS % (AUTO) 0.5 % (0-2); EOSINOPHILS % (AUTO) 3.5 % (0-6); HEMATOCRIT 36.5 % (37.9-51.0); HEMOGLOBIN 12.6 g/dL (13.5-17.0); LYMPHOCYTES % (AUTO) 18.1 % (13-45); MEAN CORPUSCULAR HEMOGLOBIN 32.1 pg (27.0-33.4); MEAN CORPUSCULAR HGB CONC 34.5 g/dL (32.0-36.0); MEAN CORPUSCULAR VOLUME 93 fl (80-97); MONOCYTES % (AUTO) 9.1 % (3-13); PLATELET COUNT 151 10^3/uL (150-450); RED BLOOD COUNT 3.92 10^6/uL (4.35-5.55); SEGMENTED NEUTROPHILS % (AUTO) 68.8 % (42-78); TOTAL CELLS COUNTED % (AUTO) 100 %; WHITE BLOOD COUNT 8.5 10^3/uL (4.0-10.5)
[2019-11-18 18:07] LABS: ALBUMIN 3.5 g/dL (3.5-5.0); ALKALINE PHOSPHATASE 55 U/L (38-126); ANION GAP 12 (5-19); ASPARTATE AMINO TRANSFERASE 24 U/L (17-59); BILIRUBIN,DIRECT 0.3 mg/dL (0.0-0.4); BILIRUBIN,TOTAL 0.6 mg/dL (0.2-1.3); BLOOD UREA NITROGEN 29 mg/dL (7-20); CALCIUM 8.5 mg/dL (8.4-10.2); CARBON DIOXIDE 22 mmol/L (22-30); CHLORIDE 100 mmol/L (98-107); GLUCOSE 99 mg/dL (75-110); POTASSIUM 4.5 mmol/L (3.6-5.0)
[2019-11-18] MEDS ORDERED: NORMAL SALINE 1000 ML 1,000 ML IV ONE ×2 (18:29→19:24)
--- NOTE | 2019-11-18 18:44 | RADIOLOGY REPORT (SQ) ---
EXAM DESCRIPTION: TOE LEFT IMAGES COMPLETED DATE/TIME: 11/18/2019 6:25 pm REASON FOR STUDY: great toe, recent osteomyelitis, low bp COMPARISON: October 2017 NUMBER OF VIEWS: Three views. TECHNIQUE: AP, lateral, and oblique images acquired of the left first toe. LIMITATIONS: None. FINDINGS: MINERALIZATION: Normal. BONES: No acute fracture or dislocation. No worrisome bone lesions. Re- demonstration of degenerati ve changes at the 1st metatarsophalangeal joint. JOINTS: No effusions. SOFT TISSUES: No soft tissue swelling. No foreign body. OTHER: No other significant finding. IMPRESSION: No evidence of osteomyelitis. Re- demonstration of 1st metatarsophalangeal joint degene rative changes. COMMENT: SITE OF TRAUMA/COMPLAINT MARKED/STAMP COMPLETED: NO. TECHNICAL DOCUMENTATION: JOB ID: [id number] 2010 [employer]- All Rights Reserved Reading location - IP/workstation name: [email or web address]
--- NOTE | 2019-11-18 18:45 | RADIOLOGY REPORT (SQ) ---
EXAM DESCRIPTION: CHEST 2 VIEWS IMAGES COMPLETED DATE/TIME: 11/18/2019 5:25 pm REASON FOR STUDY: hypotension COMPARISON: 02/21/2017 EXAM PARAMETERS: NUMBER OF VIEWS: two views TECHNIQUE: Digital Frontal and Lateral radiographic views of the chest acquired. RADIATION DOSE: NA LIMITATIONS: none FINDINGS: LUNGS AND PLEURA: No opacities, masses or pneumothorax. No pleural effusion. MEDIASTINUM AND HILAR STRUCTURES: No masses or contour abnormalities. HEART AND VASCULAR STRUCTURES: Heart normal size. No evidence for failure. BONES: No acute findings. HARDWARE: A left infraclavicular AICD is intact. OTHER: No other significant finding. IMPRESSION: NO ACUTE RADIOGRAPHIC FINDING IN THE CHEST. TECHNICAL DOCUMENTATION: JOB ID: [id number] 2010 [employer]- All Rights Reserved Reading location - IP/workstation name: [email or web address]
--- NOTE | 2019-11-18 19:02 | EKG REPORT ---
SEVERITY:- ABNORMAL ECG - SINUS RHYTHM MULTIPLE ATRIAL PREMATURE COMPLEXES CRBBB : Confirmed by: Benito Rodarte MD 18-Nov-2019 19:01:25
[2019-11-18 20:27] LABS: APPEARANCE,URINE SLIGHTLY-CLOUDY; BILIRUBIN,URINE NEGATIVE (NEGATIVE); COLOR,URINE YELLOW; GLUCOSE, URINE NEGATIVE (NEGATIVE); KETONES,URINE NEGATIVE (NEGATIVE); PROTEIN,URINE NEGATIVE (NEGATIVE); URINE SPECIFIC GRAVITY 1.009; UROBILINOGEN,URINE NEGATIVE mg/dL (<2.0)
[2019-11-18] MEDS ORDERED: ONDANSETRON HCL INJ/PF 4 MG/2 ML SDV IV PRN (20:47)
[2019-11-18] MEDS ORDERED: MAGNESIUM HYDROXIDE SUSP 30 ML UDCUP PO PRN (20:47)
[2019-11-18] MEDS ORDERED: MAG HYDROX/AL HYDROX/SIMETH SUSP 30 ML UDCUP PO PRN (20:47)
[2019-11-18] MEDS ORDERED: LORAZEPAM INJ 2 MG/1 ML VIAL IV PRN (20:52)
[2019-11-18] MEDS ORDERED: MELATONIN 5 MG TABLET PO PRN (20:52)
[2019-11-18] MEDS ORDERED: ACETAMINOPHEN 325 MG TABLET PO PRN (20:52)
[2019-11-18] MEDS ORDERED: GUAIFENESIN SYRP 200 MG/10 ML UDC PO PRN (20:52)
[2019-11-18] MEDS ORDERED: LEVALBUTEROL HCL NEB 0.63 MG/3 ML AMPUL NEB PRN (20:55)
[2019-11-18] MEDS ORDERED: HEPARIN SOD (PORCINE) 5,000 UNIT/ML 1 ML VIAL SUBCUT SCH (22:00)
[2019-11-18] MEDS ORDERED: ZOLPIDEM TARTRATE 5 MG TABLET PO ONE (23:45)
[2019-11-18] MEDS: RINGERS SOLUTION,LACTATED 1,000 ML IV PRN (23:51)
[2019-11-18] MEDS: MORPHINE SULFATE 10 MG/ML INJ IV PRN (23:59)
[2019-11-19] MEDS: LEVALBUTEROL HCL NEB 1.25 MG/3 ML AMPUL NEB SCH ×2 (00:31→08:07)
[2019-11-19] MEDS: IPRATROPIUM BROMIDE 0.02% NEB 0.5 MG/2.5 ML AMPUL NEB SCH ×2 (00:31→08:07)
--- NOTE | 2019-11-19 01:31 | PDOC H&P ---
History of Present Illness Admission Date/PCP: 11/18/19 20:04 LUZ COX DO Patient complains of: Generalized weakness History of Present Illness: SVETLANA ADAIR JR is a 74 year old male who presented to the emergency room with a one-week history of generalized weakness. He admits having been treated for osteomyelitis with IV vancomycin administered at home via PICC line until 11/11/2019. His osteomyelitis appeared to be improving and his vancomycin was discontinued at that time with follow-up scheduled for November. Since discontinuation of his vancomycin he has experienced gradually worsening generalized weakness becoming severe today. His generalized weakness has been accompanied by lightheadedness/dizziness and associated with low blood pressure at home when he was seen by his home health nurse today prompting his emergency room visit. He denies other associated or accompanying signs and symptoms. He denies prior similar episodes. He has not identified any aggravating or ameliorating factors for his generalized weakness. In the emergency room he was found to have an acute kidney injury with a creatinine of 4.47 over a last known creatinine of 1.13 on 11/11/2019. Dr. Muniz was consulted by the emergency room physician and the patient is subsequently being admitted for further evaluation and treatment with Dr. Muniz's guidance and consultation. Past Medical History Cardiac Medical History: Reports: Atrial Fibrillation, Congestive Heart Failure, Coronary Artery Disease, Myocardial Infarction, Hypertension, Other - Atul tricular tachycardia, Brugada syndrome Pulmonary Medical History: Reports: Asthma, Chronic Obstructive Pulmonary Disease (COPD), Pneumonia Denies: Bronchitis EENT Medical History: Denies: Cataracts, Ears - Hearing aids Neurological Medical History: Denies: Hemorrhagic CVA, Ischemic CVA, Seizures Endocrine Medical History: Reports: Obesity Denies: Diabetes Mellitus Type 1, Diabetes Mellitus Type 2, Hyperthyroidism, Hypothyroidism Renal/ Medical History: Denies: Chronic Kidney Disease, Nephrolithiasis Malignancy Medical History: Reports: None GI Medical History: Reports: Other - Colon polyps Denies: Cirrhosis, Hepatitis, Hiatal Hernia, Peptic Ulcer Disease Musculoskeltal Medical History: Reports: Arthritis - Chronic pain, Other - Herniated lumbar disc, osteomyelitis Denies: Fibromyalgia, Gout Skin Medical History: Denies: Eczema, Psoriasis Psychiatric Medical History: Reports: Depression, General Anxiety Disorder, Post Traumatic Stress Disorder Denies: Alcohol Dependency, Substance Abuse, Tobacco Dependency Traumatic Medical History: Reports: Traumatic Brain Injury Hematology: Denies: Anemia, Bleeding Tendencies Infectious Medical History: Reports: Methicillin-Resistant Staph Aureus - Osteomyelitis Past Surgical History Past Surgical History: Reports: Herniorrhaphy, Internal Defibrillator - AICD ludmila cement, replaced battery x3, Orthopedic Surgery - Right knee, right hand, right foot, Tonsillectomy - With adenoidectomy, Other - Colonoscopy with polypectomy Social History Information Source: Patient Lives with: Family Smoking Status: Former Smoker Electronic Cigarette use?: No Frequency of Alcohol Use: None Hx Recreational Drug Use: No Drugs: None Hx Prescription Drug Abuse: No - Advance Directive Resuscitation Status: Full Code Surrogate healthcare decision maker:: Jacqueline Adair Family History Family History: COPD, Malignancy Parental Family History Reviewed: Yes Children Family History Reviewed: No Sibling(s) Family History Reviewed.: Yes Medication/Allergy Home Medications: Metoprolol Tartrate 50 mg PO Q12 11/07/11 Albuterol Sulfate [Ventolin HFA MDI 18 GM] 2 puff IH Q4HP PRN 06/08/16 Cyclobenzaprine HCl 10 mg PO TIDP PRN 06/08/16 Oxycodone HCl [Oxycodone HCl 10 MG Tablet] 20 mg PO 5XDP PRN 06/08/16 Rosuvastatin Calcium 10 mg PO DAILY 12/27/16 Diltiazem HCl [Diltiazem 12Hr ER] 60 mg PO Q12 11/18/19 Dronabinol [Marinol 2.5 mg Capsule] 5 mg PO QID 11/18/19 Gabapentin [Neurontin 300 mg Capsule] 900 mg PO Q8 11/18/19 Lisinopril [Prinivil 10 mg Tablet] 10 mg PO DAILY 11/18/19 Nitroglycerin 1 spray TL ASDIR PRN 11/18/19 Rivaroxaban [Xarelto] 20 mg PO DAILY 11/18/19 Sertraline HCl 100 mg PO DAILY 11/18/19 Zolpidem Tartrate [Ambien] 10 mg PO QHS 11/18/19 Allergies/Adverse Reactions: ibuprofen [Ibuprofen] Allergy (Unknown, Verified 03/09/17 08:05) Influenza Virus Vaccines [Influenza Virus Vaccine] Allergy (Verified 03/09/17 08:05) Review of Systems Constitutional: PRESENT: as per HPI, weakness. ABSENT: chills, fever(s) Eyes: ABSENT: visual disturbances, other - Eye pain Ears: ABSENT: hearing changes, other - Ear pain Nose, Mouth, and Throat: ABSENT: headache(s), sore throat Cardiovascular: PRESENT: as per HPI, other - Lightheadedness/dizziness. ABSENT: chest pain, palpitations Respiratory: ABSENT: cough, dyspnea Gastrointestinal: ABSENT: abdominal pain, constipation, diarrhea, nausea, vomiting Genitourinary: ABSENT: dysuria, hematuria Musculoskeletal: PRESENT: back pain - Chronic. ABSENT: joint swelling, muscle weakness Integumentary: ABSENT: pruritus, rash Neurological: PRESENT: as per HPI, dizziness - With lightheadedness. ABSENT: confusion, convulsions, focal weakness, memory loss, syncope Psychiatric: ABSENT: anxiety, depression Endocrine: ABSENT: cold intolerance, heat intolerance Hematologic/Lymphatic: ABSENT: easy bleeding, easy bruising Allergic/Immunologic: ABSENT: seasonal rhinorrhea Physical Exam Vital Signs: Temp Pulse Resp BP Pulse Ox 98.6 F 83 12 114/64 100 11/18/19 14:23 11/18/19 14:23 11/18/19 19:00 11/18/19 19:01 11/18/19 19:01 Intake & Output 11/16/19 11/17/19 11/18/19 23:59 23:59 23:59 Intake Total 1000 Balance 1000 Weight 122.924 kg General appearance: PRESENT: no acute distress, cooperative, obese Head exam: PRESENT: atraumatic, normocephalic Eye exam: PRESENT: conjunctiva pink. ABSENT: conjunctival injection, scleral icterus Ear exam: PRESENT: normal external ear exam. ABSENT: bleeding, drainage Mouth exam: PRESENT: dry mucosa, neck supple Neck exam: ABSENT: thyromegaly, tracheal deviation Respiratory exam: PRESENT: clear to auscultation clara, symmetrical, unlabored Cardiovascular exam: PRESENT: irregular rhythm - Irregularly irregular rate and rhythm. ABSENT: clicks, gallop, rubs Pulses: PRESENT: normal radial pulses, normal dorsalis pedis pul Vascular exam: PRESENT: normal capillary refill. ABSENT: pallor GI/Abdominal exam: PRESENT: normal bowel sounds, soft. ABSENT: tenderness Rectal exam: PRESENT: deferred Extremities exam: PRESENT: other - Mild erythema and edema of the left great toe status post removal of the toenail.. ABSENT: joint swelling, pedal edema Musculoskeletal exam: ABSENT: deformity, dislocation Neurological exam: PRESENT: alert, oriented to person, oriented to place, oriented to time, oriented to situation, CN II-XII grossly intact. ABSENT: motor sensory deficit Psychiatric exam: PRESENT: appropriate affect, normal mood Skin exam: PRESENT: dry, intact, warm. ABSENT: jaundice, rash, urticaria Results Laboratory Results: 11/18/19 14:58 11/18/19 14:58 11/18/19 11/18/19 11/18/19 14:58 14:58 14:58 WBC 8.5 RBC 3.92 L Hgb 12.6 L Hct 36.5 L MCV 93 MCH 32.1 MCHC 34.5 RDW 14.0 Plt Count 151 Seg Neutrophils % 68.8 VBG pH 7.21 L VBG pCO2 59.8 VBG HCO3 23.6 VBG Base Excess -5.4 Sodium 134.2 L Potassium 4.5 Chloride 100 Carbon Dioxide 22 Anion Gap 12 BUN 29 H Creatinine 4.47 H Est GFR ( Amer) 16 L Glucose 99 Lactic Acid Calcium 8.5 Total Bilirubin 0.6 AST 24 Alkaline Phosphatase 55 Total Protein 6.0 L Albumin 3.5 11/18/19 14:58 WBC RBC Hgb Hct MCV MCH MCHC RDW Plt Count Seg Neutrophils % VBG pH VBG pCO2 VBG HCO3 VBG Base Excess Sodium Potassium Chloride Carbon Dioxide Anion Gap BUN Creatinine Est GFR ( Amer) Glucose Lactic Acid 1.4 Calcium Total Bilirubin AST Alkaline Phosphatase Total Protein Albumin 11/18/19 14:58 Troponin I < 0.012 Impressions: Chest X-Ray 11/18/19 17:20 IMPRESSION: NO ACUTE RADIOGRAPHIC FINDING IN THE CHEST. Toe X-Ray 11/18/19 17:20 IMPRESSION: No evidence of osteomyelitis. Re- demonstration of 1st metatarsophalangeal joint degenerative changes. Assessment and Plan - Diagnosis (1) Acute kidney injury (nontraumatic) Is this a current diagnosis for this admission?: Yes (2) Hypertension Qualifiers: Hypertension type: essential hypertension Qualified Code(s): I10 - Es sential (primary) hypertension Is this a current diagnosis for this admission?: Yes (3) Brugada syndrome Is this a current diagnosis for this admission?: Yes (4) GERD (gastroesophageal reflux disease) Qualifiers: Esophagitis presence: esophagitis presence not specified Qualified Code(s): K21.9 - Gastro-esophageal reflux disease without esophagitis Is this a current diagnosis for this admission?: Yes (5) Chronic obstructive pulmonary disease Qualifiers: COPD type: unspecified COPD Qualified Code(s): J44.9 - Chronic obstructive pulmonary disease, unspecified Is this a current diagnosis for this admission?: Yes (6) PTSD (post-traumatic stress disorder) Is this a current diagnosis for this admission?: Yes (7) History of traumatic brain injury Is this a current diagnosis for this admission?: Yes - Plan Summary Summary: Patient will be admitted to the medical floor where he will receive routine supportive and symptomatic cares. Consultation with Dr. Muniz for nephrology will be obtained. Patient will be treated with IV fluids utilizing lactated Ringer solution at 167 mL/h. Serial metabolic profiles will be obtained as appropriate. He will receive Ativan 1 mg IV every 4 hours as needed for anxiety or restlessness. He will receive morphine sulfate 2 to 4 mg IV every 2 hours as needed for pain. His usual home medications will be restarted, as appropriate, once his medication list has been verified and appropriately reconciled. He will be treated with a cardiac and prerenal restricted diet. - Time Time Spent with patient: Less than 15 minutes Medications reviewed and adjusted accordingly: Yes Anticipated Discharge Disposition: Home with Home Health Anticipated Discharge Timeframe: Undetermined - Inpatient Certification Based on my medical assessment, after consideration of the patient's comorbidities, presenting symptoms, or acuity I expect that the services needed warrant INPATIENT care.: Yes I certify that my determination is in accordance with my understanding of Medicare's requirements for reasonable and necessary INPATIENT services [42 CFR 412.3e].: Yes Medical Necessity: Significant Comorbidiites Make Outpatient Treatment Too Risky, Need Close Monitoring Due to Risk of Patient Decompensation, Need For IV Fluids
[2019-11-19] MEDS: PANTOPRAZOLE SODIUM 40 MG TABLET.DR PO SCH (05:58)
[2019-11-19] MEDS: MORPHINE SULFATE 10 MG/ML INJ IV PRN (06:04)
[2019-11-19] MEDS: RINGERS SOLUTION,LACTATED 1,000 ML IV PRN ×3 (06:35→21:21)
[2019-11-19] MEDS ORDERED: BUDESONIDE NEB 0.5 MG/2 ML AMPUL NEB SCH (08:00)
[2019-11-19 09:34] LABS: HEMATOCRIT 34.4 % (37.9-51.0); HEMOGLOBIN 12.1 g/dL (13.5-17.0); MEAN CORPUSCULAR HEMOGLOBIN 32.5 pg (27.0-33.4); MEAN CORPUSCULAR HGB CONC 35.3 g/dL (32.0-36.0); MEAN CORPUSCULAR VOLUME 92 fl (80-97); PLATELET COUNT 119 10^3/uL (150-450); RED BLOOD COUNT 3.73 10^6/uL (4.35-5.55); RED CELL DISTRIBUTION WIDTH 13.5 % (11.5-14.0); WHITE BLOOD COUNT 6.1 10^3/uL (4.0-10.5)
[2019-11-19 10:00] LABS: ANION GAP 9 (5-19); BLOOD UREA NITROGEN 21 mg/dL (7-20); CALCIUM 8.5 mg/dL (8.4-10.2); CARBON DIOXIDE 24 mmol/L (22-30); CHLORIDE 103 mmol/L (98-107); CHOLESTEROL 107.45 mg/dL (0-200); GLUCOSE 113 mg/dL (75-110); TRIGLYCERIDES 139 mg/dL (<150)
[2019-11-19] MEDS ORDERED: NORMAL SALINE 10 ML SDV (AFTER EACH USE) IV PRN (10:00)
[2019-11-19 10:11] LABS: DIRECT LDL 52 mg/dL (<100)
[2019-11-19] MEDS: DOCUSATE SODIUM 100 MG CAPSULE PO SCH ×2 (11:03→17:44)
[2019-11-19] MEDS: NORMAL SALINE 10 ML SDV (SCHEDULED) IV SCH ×2 (11:03→21:24)
--- NOTE | 2019-11-19 11:31 | PDOC PROGRESS REPORT ---
Subjective Subjective:: Per Previous Physician: "SVETLANA DUFF JR is a 74 year old male who presented to the emergency room with a one-week history of generalized weakness. He admits having been treated for osteomyelitis with IV vancomycin administered at home via PICC line until 11/11/2019. His osteomyelitis appeared to be improving and his vancomycin was discontinued at that time with follow-up scheduled for November. Since discontinuation of his vancomycin he has experienced gradually worsening generalized weakness becoming severe today. His generalized weakness has been accompanied by lightheadedness/dizziness and associated with low blood pressure at home when he was seen by his home health nurse today prompting his emergency room visit. He denies other associated or accompanying signs and symptoms. He denies prior similar episodes. He has not identified any aggravating or ameliorating factors for his generalized weakness. In the emergency room he was found to have an acute kidney injury with a creatinine of 4.47 over a last known creatinine of 1.13 on 11/11/2019. Dr. Muniz was consulted by the emergency room physician and the patient is subsequently being admitted for further evaluation and treatment with Dr. Muniz's guidance and consultation." 11/19/2019 Creatinine has already started to improve significantly just with some IV fluids and tincture of time. Overnight physician has already consulted nephrology however their services may not be needed. Left foot x-ray reviewed which showed old first MTP degeneration but no specific findings of osteomyelitis. Blood culture was sent although I am at a loss for why this was even done since the patient has been afebrile with a normal WBC since admission and he has no signs or symptoms of infection whatsoever. If 1 of these cultures comes back positive from this it will almost certainly be a contaminant which is quite common in the ER drawn blood cultures. Assuming creatinine continues to improve with IV fluids, patient can likely be discharged home tomorrow. Continue trending BMP and continue IV fluids. Patient has no new complaints. Reason For Visit: ACUTE KIDNEY INJURY,GENERALIZED WEAKNESS,HYPOVOLEM Physical Exam Vital Signs: Temp Pulse Resp BP Pulse Ox 98.0 F 90 18 126/63 H 96 11/19/19 09:09 11/19/19 08:06 11/19/19 08:06 11/19/19 08:06 11/19/19 08:06 Intake & Output 09/29/20 09/30/20 10/01/20 06:59 06:59 06:59 Intake Total 3000 370 Output Total 600 Balance 2400 370 Weight 123 kg General appearance: PRESENT: no acute distress, well-developed, well-nourished Head exam: PRESENT: atraumatic, normocephalic Eye exam: PRESENT: conjunctiva pink Mouth exam: PRESENT: moist Respiratory exam: PRESENT: clear to auscultation clara. ABSENT: rales, rhonchi, wheezes Cardiovascular exam: PRESENT: RRR. ABSENT: diastolic murmur, rubs, systolic murmur GI/Abdominal exam: PRESENT: normal bowel sounds, soft. ABSENT: distended, guar ding, mass, organolmegaly, rebound, tenderness Extremities exam: PRESENT: other - Very minimal erythema of left great toe Neurological exam: PRESENT: alert, awake, oriented to person, oriented to place, oriented to time, oriented to situation Psychiatric exam: PRESENT: appropriate affect, normal mood Skin exam: PRESENT: dry, intact, warm Results Laboratory Results: 11/19/19 09:27 11/19/19 09:27 11/18/19 11/18/19 11/18/19 14:58 14:58 14:58 WBC 8.5 RBC 3.92 L Hgb 12.6 L Hct 36.5 L MCV 93 MCH 32.1 MCHC 34.5 RDW 14.0 Plt Count 151 Seg Neutrophils % 68.8 VBG pH 7.21 L VBG pCO2 59.8 VBG HCO3 23.6 VBG Base Excess -5.4 Sodium 134.2 L Potassium 4.5 Chloride 100 Carbon Dioxide 22 Anion Gap 12 BUN 29 H Creatinine 4.47 H Est GFR ( Amer) 16 L Glucose 99 Lactic Acid Calcium 8.5 Magnesium Total Bilirubin 0.6 AST 24 Alkaline Phosphatase 55 Total Protein 6.0 L Albumin 3.5 Triglycerides Cholesterol LDL Cholesterol Direct VLDL Cholesterol HDL Cholesterol Urine Color Urine Appearance Urine pH Ur Specific [place] Urine Protein Urine Glucose (UA) Urine Ketones Urine Blood Urine RBC (Auto) 11/18/19 11/18/19 11/18/19 14:58 20:00 20:13 WBC RBC Hgb Hct MCV MCH MCHC RDW Plt Count Seg Neutrophils % VBG pH VBG pCO2 VBG HCO3 VBG Base Excess Sodium Potassium Chloride Carbon Dioxide Anion Gap BUN Creatinine Est GFR ( Amer) Glucose Lactic Acid 1.4 0.8 Calcium Magnesium Total Bilirubin AST Alkaline Phosphatase Total Protein Albumin Triglycerides Cholesterol LDL Cholesterol Direct VLDL Cholesterol HDL Cholesterol Urine Color YELLOW Urine Appearance SLIGHTLY-CLOUDY Urine pH 5.0 Ur Specific [place] 1.009 Urine Protein NEGATIVE Urine Glucose (UA) NEGATIVE Urine Ketones NEGATIVE Urine Blood NEGATIVE Urine RBC (Auto) 1 11/18/19 11/19/19 11/19/19 23:30 09:27 09:27 WBC 6.1 RBC 3.73 L Hgb 12.1 L Hct 34.4 L MCV 92 MCH 32.5 MCHC 35.3 RDW 13.5 Plt Count 119 L Seg Neutrophils % VBG pH VBG pCO2 VBG HCO3 VBG Base Excess Sodium 136.2 L Potassium 4.0 Chloride 103 Carbon Dioxide 24 Anion Gap 9 BUN 21 H Creatinine 2.22 H Est GFR ( Amer) 35 L Glucose 113 H Lactic Acid 0.9 Calcium 8.5 Magnesium 2.3 Total Bilirubin AST Alkaline Phosphatase Total Protein Albumin Triglycerides 139 Cholesterol 107.45 LDL Cholesterol Direct 52 VLDL Cholesterol 28.0 HDL Cholesterol 35 L Urine Color Urine Appearance Urine pH Ur Specific [place] Urine Protein Urine Glucose (UA) Urine Ketones Urine Blood Urine RBC (Auto) 11/18/19 14:58 Troponin I < 0.012 Impressions: Chest X-Ray 11/18/19 17:20 IMPRESSION: NO ACUTE RADIOGRAPHIC FINDING IN THE CHEST. Toe X-Ray 11/18/19 17:20 IMPRESSION: No evidence of osteomyelitis. Re- demonstration of 1st metatarsophalangeal joint degenerative changes. Assessment and Plan - Diagnosis (1) Acute kidney injury (nontraumatic) Is this a current diagnosis for this admission?: Yes Plan: Creatinine up to 4.47 on admission, trending down IV fluids Etiology suspected to be vancomycin induced renal failure as well as prerenal given evidence of hyaline casts on UA Nephrology consulted by admitting physician Trend BMP (2) Chronic obstructive pulmonary disease Qualifiers: COPD type: unspecified COPD Qualified Code(s): J44.9 - Chronic obstructive pulmonary disease, unspecified Is this a current diagnosis for this admission?: Yes Plan: Stable (3) Hypertension Qualifiers: Hypertension type: essential hypertension Qualified Code(s): I10 - Essential (primary) hypertension Is this a current diagnosis for this admission?: Yes Plan: Home meds (4) Chronic kidney disease, stage III (moderate) Is this a current diagnosis for this admission?: Yes Plan: Baseline creatinine approximately 1.2-1.3 per records Nephrology following (5) History of traumatic brain injury Is this a current diagnosis for this admission?: Yes Plan: Stable (6) PTSD (post-traumatic stress disorder) Is this a current diagnosis for this admission?: Yes Plan: Stable - Plan Summary Summary: Patient will be admitted to the medical floor where he will receive routine supportive and symptomatic cares. Consultation with Dr. Muniz for nephrology will be obtained. Patient will be treated with IV fluids utilizing lactated Ringer solution at 167 mL/h. Serial metabolic profiles will be obtained as appropriate. He will receive Ativan 1 mg IV every 4 hours as needed for anxiety or restlessness. He will receive morphine sulfate 2 to 4 mg IV every 2 hours as needed for pain. His usual home medications will be restarted, as appropriate, once his medication list has been verified and appropriately reconciled. He will be treated with a cardiac and prerenal restricted diet. - Time Time Spent with patient: 25-34 minutes Medications reviewed and adjusted accordingly: Yes Anticipated Discharge Disposition: Home, Self Care Anticipated Discharge Timeframe: within 24 hours - Inpatient Certification Based on my medical assessment, after consideration of the patient's comorbidities, presenting symptoms, or acuity I expect that the services needed warrant INPATIENT care.: Yes I certify that my determination is in accordance with my understanding of Medicare's requirements for reasonable and necessary INPATIENT services [42 CFR 412.3e].: Yes Medical Necessity: Significant Comorbidiites Make Outpatient Treatment Too Risky, Need Close Monitoring Due to Risk of Patient Decompensation, Need For IV Fluids, Risk of Complication if Not Cared For in Hospital, Risk of Diagnosis Which Will Require Inpatient Eval/Care/Monitoring
--- NOTE | 2019-11-19 11:56 | PDOC CONSULTATION ---
Consultation Consult Date: 11/19/19 Provider Consulted: FRANCINE CARPIO Consult reason:: ADRY History of Present Illness Admission Date/PCP: 11/18/19 20:04 LUZ COX DO History of Present Illness: SVETLANA DUFF JR is a 74 year old male with history of atrial fibrillation, CHF, CAD, hypertension, COPD and asthma who was brought to the emergency room yesterday via EMS because of severe hypotension. Patient has been dealing with his left big toe osteomyelitis since April of this year. He has been on oral antibiotics between April and May. Finally he started seeing local telephone operator, Dr. Peters who placed him on oral antibiotics for 6 weeks and then decided to do IV antibiotics and so a PICC line was placed. He relates that he was on IV vancomycin at home for 7 to 8 days with the last dose being on November 10. His vancomycin trough level on November 10 was 17.4. Subsequently he has some gradual generalized weakness. Two days ago he said he started feeling lightheaded. Yesterday his home health nurse came for his weekly visit and found him to be feeling cold, clammy with blood pressure of 60/40 so EMS was called and the patient was sent to the emergency room. Initial blood pressure in the emergency room was 91/62. Initial evaluation also showed a BUN of 49, creatinine of 4.47 with EGFR of 13. On November 10 he had a BUN of 14, creatinine 1.13 with EGFR greater than 60. Patient was started on IV fluids and subsequently got admitted here. I was called to do a consultation due to acute kidney injury. Today the patient's repeat labs showed a BUN of 21, creatinine of 2.22 with EGFR of 29 after IV fluids. He is still receiving ongoing IV fluids. He is making urine in past 600 mL of urine output since admission as recorded. His blood pressure now is much better at 126/63. Patient denies any nausea, vomiting or diarrhea. He denies any chest pains or shortness of breath. He denies any cough nor fever. He said he is eating good at home and has been drinking fluids more than 48 ounces a day. He does not monitor his blood pressure at home but has been taking several cardiac/blood pressure medications including metoprolol, diltiazem and lisinopril. He does follow-up with his sports centre manager, Dr. Negron. He denies having had any kidney problems in the past. He denies any NSAID use, [id number] herbal medication intake. He denies any hepatitis. He does admit some urinary frequency and sometimes difficulty of initiating urination. He said he was told he had mild BPH years ago which does not need treatment. He denies any hematuria, foamy urine nor flank pain or suprapubic pain. He is currently doing fine and has no other new complaints. Past Medical History Cardiac Medical History: Reports: Atrial Fibrillation, Coronary Artery Disease, Hypertension-primary, Myocardial Infarction, Other - Ventricular tachycardia, Brugada syndrome Pulmonary Medical History: Reports: Asthma, Chronic Obstructive Pulmonary Disease (COPD), Pneumonia Neurological Medical History: Reports: Other - Peripheral neuropathy Endocrine Medical History: Reports: Obesity Renal/ Medical History: Reports: Benign Prostatic Hyperplasia GI Medical History: Reports: Other - Colon polyps Musculoskeltal Medical History: Reports: Arthritis - Chronic pain, Other - Herniated lumbar disc, osteomyelitis Psychiatric Medical History: Reports: Depression, General Anxiety Disorder, Post Traumatic Stress Disorder Traumatic Medical History: Reports: Traumatic Brain Injury Infectious Medical History: Reports: Methicillin-resist Staph Aureus - Osteomyelitis Past Surgical History Past Surgical History: Reports: Herniorrhaphy, Internal Defibrillator - AICD placement, replaced battery x3, Orthopedic Surgery - Right knee, right hand, right foot, Tonsillectomy - With adenoidectomy, Other - Colonoscopy with polypectomy Social History Information Source: Patient Lives with: Family Smoking Status: Former Smoker Electronic Cigarette use?: No Frequency of Alcohol Use: None Hx Recreational Drug Use: No Drugs: None Hx Prescription Drug Abuse: No - Advance Directive Resuscitation Status: Full Code Family History Family History: Malignancy - Mother of ovarian cancer at 90 years old, Other - Father has COPD Parental Family History Reviewed: Yes Children Family History Reviewed: Yes Sibling(s) Family History Reviewed.: Yes Medication/Allergy Home Medications: Metoprolol Tartrate 50 mg PO Q12 11/07/11 Albuterol Sulfate [Ventolin HFA MDI 18 GM] 2 puff IH Q4HP PRN 06/08/16 Cyclobenzaprine HCl 10 mg PO TIDP PRN 06/08/16 Oxycodone HCl [Oxycodone HCl 10 MG Tablet] 20 mg PO 5XDP PRN 06/08/16 Rosuvastatin Calcium 10 mg PO DAILY 12/27/16 Diltiazem HCl [Diltiazem 12Hr ER] 60 mg PO Q12 11/18/19 Dronabinol [Marinol 2.5 mg Capsule] 5 mg PO QID 11/18/19 Gabapentin [Neurontin 300 mg Capsule] 900 mg PO Q8 11/18/19 Lisinopril [Prinivil 10 mg Tablet] 10 mg PO DAILY 11/18/19 Nitroglycerin 1 spray TL ASDIR PRN 11/18/19 Rivaroxaban [Xarelto] 20 mg PO DAILY 11/18/19 Sertraline HCl 100 mg PO DAILY 11/18/19 Zolpidem Tartrate [Ambien] 10 mg PO QHS 11/18/19 Allergies/Adverse Reactions: ibuprofen [Ibuprofen] Allergy (Unknown, Verified 03/09/17 08:05) Influenza Virus Vaccines [Influenza Virus Vaccine] Allergy (Verified 03/09/17 08:05) Review of Systems All systems: reviewed and no additional remarkable complaints except as stated Review of Systems: Constitutional: ABSENT: chills, fatigue, fever(s), headache(s), weight gain, weight loss; positive generalized weakness Eyes: ABSENT: visual disturbances Ears: ABSENT: hearing changes Cardiovascular: ABSENT: chest pain, dyspnea on exertion, edema, orthropnea, palpitations Respiratory: ABSENT: cough, dyspnea, hemoptysis Gastrointestinal: ABSENT: abdominal pain, constipation, diarrhea, hematemesis, hematochezia, nausea, vomiting Genitourinary: ABSENT: dysuria, hematuria Musculoskeletal: ABSENT: joint swelling Integumentary: ABSENT: rash, wounds Neurological: ABSENT: abnormal gait, abnormal speech, confusion, focal weakness, numbness, syncope; admits lightheadedness 2 days ago Psychiatric: ABSENT: anxiety, depression Endocrine: ABSENT: cold intolerance, heat intolerance, polydipsia, polyuria Hematologic/Lymphatic: ABSENT: easy bleeding, easy bruising, lymphadenopathy Physical Exam Vital Signs: Temp Pulse Resp BP Pulse Ox 98.0 F 90 18 126/63 H 96 11/19/19 09:09 11/19/19 08:06 11/19/19 08:06 11/19/19 08:06 11/19/19 08:06 Intake & Output 11/18/19 11/19/19 11/20/19 06:59 06:59 06:59 Intake Total 3000 370 Output Total 600 Balance 2400 370 Weight 123 kg Exam: General appearance: No acute distress, cooperative, well-developed, well-nour ished Head exam: PRESENT: atraumatic, normocephalic Eye exam: PRESENT: Conjunctiva [place], EOMI, PERRLA. ABSENT: conjunctival injection, scleral icterus Mouth exam: PRESENT: moist, neck supple, tongue midline Neck exam: PRESENT: full ROM. ABSENT: carotid bruit, JVD, lymphadenopathy, thyromegaly Respiratory exam: PRESENT: clear to auscultation bilaterally. ABSENT: rales, rhonchi, stridor, wheezes Cardiovascular exam: PRESENT: RRR, +S1, +S2. ABSENT: systolic murmur Pulses: PRESENT: normal radial pulses, normal dorsalis pedis pulses GI/Abdominal exam: PRESENT: normal bowel sounds, soft. ABSENT: guarding, mass, tenderness Rectal exam: Deferred Extremities exam: PRESENT: full ROM. Left big toe appears to be healed. ABSENT: calf tenderness, pedal edema Musculoskeletal: PRESENT: full ROM. ABSENT: deformity Neurological exam: PRESENT: alert, Awake, Oriented to person, Oriented to place, Oriented to time, reflexes normal, CN II-XII grossly intact. ABSENT: motor sensory deficit Psychiatric exam: PRESENT: appropriate affect, normal mood. ABSENT: homicidal ideation, suicidal ideation Skin exam: PRESENT: intact, dry, warm. ABSENT: rash Results Laboratory Results: 11/19/19 09:27 11/19/19 09:27 11/18/19 11/18/19 11/18/19 14:58 14:58 14:58 WBC 8.5 RBC 3.92 L Hgb 12.6 L Hct 36.5 L MCV 93 MCH 32.1 MCHC 34.5 RDW 14.0 Plt Count 151 Seg Neutrophils % 68.8 VBG pH 7.21 L VBG pCO2 59.8 VBG HCO3 23.6 VBG Base Excess -5.4 Sodium 134.2 L Potassium 4.5 Chloride 100 Carbon Dioxide 22 Anion Gap 12 BUN 29 H Creatinine 4.47 H Est GFR ( Amer) 16 L Glucose 99 Lactic Acid Calcium 8.5 Magnesium Total Bilirubin 0.6 AST 24 Alkaline Phosphatase 55 Total Protein 6.0 L Albumin 3.5 Triglycerides Cholesterol LDL Cholesterol Direct VLDL Cholesterol HDL Cholesterol Urine Color Urine Appearance Urine pH Ur Specific [place] Urine Protein Urine Glucose (UA) Urine Ketones Urine Blood Urine RBC (Auto) 11/18/19 11/18/19 11/18/19 14:58 20:00 20:13 WBC RBC Hgb Hct MCV MCH MCHC RDW Plt Count Seg Neutrophils % VBG pH VBG pCO2 VBG HCO3 VBG Base Excess Sodium Potassium Chloride Carbon Dioxide Anion Gap BUN Creatinine Est GFR ( Amer) Glucose Lactic Acid 1.4 0.8 Calcium Magnesium Total Bilirubin AST Alkaline Phosphatase Total Protein Albumin Triglycerides Cholesterol LDL Cholesterol Direct VLDL Cholesterol HDL Cholesterol Urine Color YELLOW Urine Appearance SLIGHTLY-CLOUDY Urine pH 5.0 Ur Specific [place] 1.009 Urine Protein NEGATIVE Urine Glucose (UA) NEGATIVE Urine Ketones NEGATIVE Urine Blood NEGATIVE Urine RBC (Auto) 1 11/18/19 11/19/19 11/19/19 23:30 09:27 09:27 WBC 6.1 RBC 3.73 L Hgb 12.1 L Hct 34.4 L MCV 92 MCH 32.5 MCHC 35.3 RDW 13.5 Plt Count 119 L Seg Neutrophils % VBG pH VBG pCO2 VBG HCO3 VBG Base Excess Sodium 136.2 L Potassium 4.0 Chloride 103 Carbon Dioxide 24 Anion Gap 9 BUN 21 H Creatinine 2.22 H Est GFR ( Amer) 35 L Glucose 113 H Lactic Acid 0.9 Calcium 8.5 Magnesium 2.3 Total Bilirubin AST Alkaline Phosphatase Total Protein Albumin Triglycerides 139 Cholesterol 107.45 LDL Cholesterol Direct 52 VLDL Cholesterol 28.0 HDL Cholesterol 35 L Urine Color Urine Appearance Urine pH Ur Specific [place] Urine Protein Urine Glucose (UA) Urine Ketones Urine Blood Urine RBC (Auto) 11/18/19 14:58 Troponin I < 0.012 Impressions: Chest X-Ray 11/18/19 17:20 IMPRESSION: NO ACUTE RADIOGRAPHIC FINDING IN THE CHEST. Toe X-Ray 11/18/19 17:20 IMPRESSION: No evidence of osteomyelitis. Re- demonstration of 1st metatarsophalangeal joint degenerative changes. Assessment & Plan - Diagnosis (1) Acute kidney injury Is this a current diagnosis for this admission?: Yes Plan: Patient is nonoliguric. He does not have any proteinuria nor microhematuria. I think this is secondary to acute prerenal factors including hypotension. I doubt that this is vancomycin toxicity. Kidney function is significantly improved with just IV fluids overnight. Agree with holding all his blood pressure medications. I think this needs to be reevaluated as he may not need too much of a high dose on this medications. Advised the patient to start checking his blood pressure at home. Since kidney function is improving, continue IV fluids for the next 24 hours. I am expecting his kidney function to improve even more in the next 24 hours. We will hold kidney ultrasound as I do not think the patient has obstructive uropathy. No indication for any renal replacement therapy. (2) Hypotension Is this a current diagnosis for this admission?: Yes Plan: Needs to review doses of patient's cardiac/blood pressure medications. I agree to hold all blood pressure medications for now. (3) Coronary artery disease Is this a current diagnosis for this admission?: Yes (4) History of osteomyelitis Is this a current diagnosis for this admission?: Yes Plan: Status post IV vancomycin treatment, last dose on 11/10 with trough level of 17 on the same day. Repeat x-ray done on admission showed no evidence of osteomyelitis. (5) Peripheral neuropathy Is this a current diagnosis for this admission?: Yes Plan: Agree on holding gabapentin for now with current ADRY. I would also be cautious with giving the patient a lot of morphine sulfate due to ADRY. - Notes Notes: Thank you very much for this consultation. I will follow the patient with you.
[2019-11-19] MEDS ORDERED: MORPHINE SULFATE 10 MG/ML INJ IV PRN ×4 (11:57→12:31)
[2019-11-19] MEDS ORDERED: LEVALBUTEROL HCL NEB 1.25 MG/3 ML AMPUL NEB PRN (13:00)
[2019-11-19] MEDS ORDERED: CYCLOBENZAPRINE HCL 10 MG TABLET PO PRN (14:50)
[2019-11-19] MEDS ORDERED: (PENDING PHARMACY ID) (Oxycodone Hcl [Oxycodone Hcl 10 Mg Tablet] 20 MG) PO PRN (14:50)
[2019-11-19] MEDS ORDERED: ALBUTEROL SULFATE HFA (90 MCG/PUFF) 8 GM MDI (1 MDI/ER DISP) IH PRN (14:50)
[2019-11-19] MEDS ORDERED: RIVAROXABAN 10 MG TABLET PO SCH (17:00)
[2019-11-19] MEDS: DRONABINOL 2.5 MG CAPSULE PO SCH ×2 (17:35→21:23)
[2019-11-19] MEDS: METOPROLOL TARTRATE 25 MG TABLET PO SCH (21:22)
[2019-11-19] MEDS: GABAPENTIN 300 MG CAPSULE PO SCH (21:24)
[2019-11-19] MEDS: OXYCODONE HCL IR 5 MG TABLET PO PRN (21:24)
[2019-11-19] MEDS ORDERED: ZOLPIDEM TARTRATE 5 MG TABLET PO SCH (22:00)
[2019-11-19] MEDS ORDERED: ATORVASTATIN CALCIUM 20 MG TABLET PO SCH (22:00)
[2019-11-19] MEDS ORDERED: (PENDING PHARMACY ID) (Diltiazem Hcl [Diltiazem 12hr Er] 60 MG) PO SCH (22:00)
[2019-11-19] MEDS ORDERED: (PENDING PHARMACY ID) (Zolpidem Tartrate [Ambien] 10 MG) PO SCH (22:00)
[2019-11-20] MEDS: RINGERS SOLUTION,LACTATED 1,000 ML IV PRN (03:20)
[2019-11-20] MEDS: GABAPENTIN 300 MG CAPSULE PO SCH (05:55)
[2019-11-20] MEDS: PANTOPRAZOLE SODIUM 40 MG TABLET.DR PO SCH (05:55)
[2019-11-20] MEDS: OXYCODONE HCL IR 5 MG TABLET PO PRN (05:58)
[2019-11-20 07:13] LABS: HEMATOCRIT 35.1 % (37.9-51.0); HEMOGLOBIN 12.2 g/dL (13.5-17.0); MEAN CORPUSCULAR HEMOGLOBIN 32.5 pg (27.0-33.4); MEAN CORPUSCULAR HGB CONC 34.8 g/dL (32.0-36.0); MEAN CORPUSCULAR VOLUME 93 fl (80-97); PLATELET COUNT 119 10^3/uL (150-450); RED BLOOD COUNT 3.76 10^6/uL (4.35-5.55); WHITE BLOOD COUNT 4.2 10^3/uL (4.0-10.5)
[2019-11-20 07:32] LABS: ANION GAP 5 (5-19); BLOOD UREA NITROGEN 15 mg/dL (7-20); CALCIUM 8.8 mg/dL (8.4-10.2); CARBON DIOXIDE 30 mmol/L (22-30); CHLORIDE 104 mmol/L (98-107); GLUCOSE 95 mg/dL (75-110); POTASSIUM 4.9 mmol/L (3.6-5.0)
[2019-11-20] MEDS: METOPROLOL TARTRATE 25 MG TABLET PO SCH (09:22)
[2019-11-20] MEDS: DRONABINOL 2.5 MG CAPSULE PO SCH (09:23)
[2019-11-20] MEDS: DOCUSATE SODIUM 100 MG CAPSULE PO SCH (09:24)
[2019-11-20] MEDS: NORMAL SALINE 10 ML SDV (SCHEDULED) IV SCH (09:24)
[2019-11-20] MEDS ORDERED: SERTRALINE HCL 50 MG TABLET PO SCH (10:00)
[2019-11-20] MEDS ORDERED: (PENDING PHARMACY ID) (Rosuvastatin Calcium [Rosuvastatin Calcium] 10 MG) PO SCH (10:00)
--- NOTE | 2019-11-20 11:04 | PDOC DISCHARGE SUMMARY ---
Impression - Admit/DC Date/PCP Admission Date/Primary Care Provider: 11/18/19 20:04 LUZ COX DO Discharge Date: 11/20/19 - Discharge Diagnosis (1) Acute kidney injury (nontraumatic) Is this a current diagnosis for this admission?: Yes (2) Chronic obstructive pulmonary disease Is this a current diagnosis for this admission?: Yes (3) Hypertension Is this a current diagnosis for this admission?: Yes (4) Chronic kidney disease, stage III (moderate) Is this a current diagnosis for this admission?: Yes (5) History of traumatic brain injury Is this a current diagnosis for this admission?: Yes (6) PTSD (post-traumatic stress disorder) Is this a current diagnosis for this admission?: Yes - Assessment Summary: Patient will be admitted to the medical floor where he will receive routine supportive and symptomatic cares. Consultation with Dr. Munzi for nephrology will be obtained. Patient will be treated with IV fluids utilizing lactated Ringer solution at 167 mL/h. Serial metabolic profiles will be obtained as appropriate. He will receive Ativan 1 mg IV every 4 hours as needed for anxiety or restlessness. He will receive morphine sulfate 2 to 4 mg IV every 2 hours as needed for pain. His usual home medications will be restarted, as appropriate, once his medication list has been verified and appropriately reconciled. He will be treated with a cardiac and prerenal restricted diet. - Additional Information Resuscitation Status: Full Code Discharge Diet: As Tolerated, Regular Discharge Activity: Activity As Tolerated, Balance Activity w/Rest Referrals: LUZ COX DO [Primary Care Provider] - 11/27/19 2:15 pm Home Medications: Metoprolol Tartrate 50 mg PO Q12 11/07/11 Albuterol Sulfate [Ventolin HFA MDI 18 GM] 2 puff IH Q4HP PRN 06/08/16 Cyclobenzaprine HCl 10 mg PO TIDP PRN 06/08/16 Oxycodone HCl [Oxycodone HCl 10 MG Tablet] 20 mg PO 5XDP PRN 06/08/16 Rosuvastatin Calcium 10 mg PO DAILY 12/27/16 Diltiazem HCl [Diltiazem 12Hr ER] 60 mg PO Q12 11/18/19 Dronabinol [Marinol 2.5 mg Capsule] 5 mg PO QID 09/29/20 Gabapentin [Neurontin 300 mg Capsule] 900 mg PO Q8 11/18/19 Nitroglycerin 1 spray TL ASDIR PRN 11/18/19 Rivaroxaban [Xarelto] 20 mg PO DAILY 11/18/19 Sertraline HCl 100 mg PO DAILY 11/18/19 Zolpidem Tartrate [Ambien] 10 mg PO QHS 11/18/19 Lisinopril [Prinivil 10 mg Tablet] 10 mg PO DAILY #0 11/20/19 History of Present Illiness History of Present Illness: Per Previous Physician: "SVETLANA DUFF JR is a 74 year old male who presented to the emergency room with a one-week history of generalized weakness. He admits having been treated for osteomyelitis with IV vancomycin administered at home via PICC line until 11/11/2019. His osteomyelitis appeared to be improving and his vancomycin was discontinued at that time with follow-up scheduled for November. Since discontinuation of his vancomycin he has experienced gradually worsening generalized weakness becoming severe today. His generalized weakness has been a ccompanied by lightheadedness/dizziness and associated with low blood pressure at home when he was seen by his home health nurse today prompting his emergency room visit. He denies other associated or accompanying signs and symptoms. He denies prior similar episodes. He has not identified any aggravating or ameliorating factors for his generalized weakness. In the emergency room he was found to have an acute kidney injury with a creatinine of 4.47 over a last known creatinine of 1.13 on 11/11/2019. Dr. Muniz was consulted by the emergency room physician and the patient is subsequently being admitted for further evaluation and treatment with Dr. Muniz's guidance and consultation." Hospital Course Hospital Course: Per admitting physician: "SVETLANA DUFF JR is a 74 year old male who presented to the emergency room with a one-week history of generalized weakness. He admits having been treated for osteomyelitis with IV vancomycin administered at home via PICC line until 11/11/2019. His osteomyelitis appeared to be improving and his vancomycin was discontinued at that time with follow-up scheduled for November. Since discontinuation of his vancomycin he has experienced gradually worsening generalized weakness becoming severe today. His generalized weakness has been accompanied by lightheadedness/dizziness and associated with low blood pressure at home when he was seen by his home health nurse today prompting his emergency room visit. He denies other associated or accompanying signs and symptoms. He denies prior similar episodes. He has not identified any aggravating or ameliorating factors for his generalized weakness. In the emergency room he was found to have an acute kidney injury with a creatinine of 4.47 over a last known creatinine of 1.13 on 11/11/2019. Dr. Muniz was consulted by the emergency room physician and the patient is subsequently being admitted for further evaluation and treatment with Dr. Muniz's guidance and consultation." 11/19/2019 Creatinine has already started to improve significantly just with some IV fluids and tincture of time. Overnight physician has already consulted nephrology tena shanell their services may not be needed. Left foot x-ray reviewed which showed old first MTP degeneration but no specific findings of osteomyelitis. Blood culture was sent although I am at a loss for why this was even done since the patient has been afebrile with a normal WBC since admission and he has no signs or symptoms of infection whatsoever. If 1 of these cultures comes back positive from this it will almost certainly be a contaminant which is quite common in the ER drawn blood cultures. Assuming creatinine continues to improve with IV fluids, patient can likely be discharged home tomorrow. Continue trending BMP and continue IV fluids. Patient has no new complaints. Creatinine with continued significant improvement, down to 1.5 on discharge which is at or near baseline per records. Patient making normal amount of urine, states he feels quite well and would like to go home today. Patient encouraged to continue oral hydration at home and to hold his lisinopril for 1 week and then discuss restarting it with his PCP. His blood pressures been lower limit normal here in the setting of ADRY it is best to hold this for now. (1) Acute kidney injury (nontraumatic) resolved Is this a current diagnosis for this admission?: Yes Plan: Creatinine up to 4.47 on admission, trended back down to baseline approximately 1.5 on discharge, good urine output IV fluids Etiology suspected to be vancomycin induced renal failure as well as prerenal/dehydration given evidence of hyaline casts on UA Nephrology consulted by admitting physician Trend BMP (2) Chronic obstructive pulmonary disease Qualifiers: COPD type: unspecified COPD Qualified Code(s): J44.9 - Chronic obstructive pulmonary disease, unspecified Is this a current diagnosis for this admission?: Yes Plan: Stable (3) Hypertension Qualifiers: Hypertension type: essential hypertension Qualified Code(s): I10 - Essential (primary) hypertension Is this a current diagnosis for this admission?: Yes Plan: Home meds (4) Chronic kidney disease, stage III (moderate) Is this a current diagnosis for this admission?: Yes Plan: Baseline creatinine approximately 1.2-1.3 per records Nephrology following (5) History of traumatic brain injury Is this a current diagnosis for this admission?: Yes Plan: Stable (6) PTSD (post-traumatic stress disorder) Is this a current diagnosis for this admission?: Yes Plan: Stable Physical Exam Vital Signs: Temp Pulse Resp BP Pulse Ox 98.2 F 69 16 127/74 H 95 11/20/19 08:00 11/20/19 08:00 11/20/19 08:00 11/20/19 08:00 11/20/19 08:00 Intake & Output 11/19/19 11/20/19 11/21/19 06:59 06:59 06:59 Intake Total 3000 5224 Output Total 600 2400 Balance 2400 2824 Weight 123 kg 126.5 kg Exam: General appearance: PRESENT: no acute distress, well-developed, well-nourished, states he feels well and would like to go home Head exam: PRESENT: atraumatic, normocephalic Eye exam: PRESENT: conjunctiva pink Mouth exam: PRESENT: moist Respiratory exam: PRESENT: clear to auscultation clara. ABSENT: rales, rhonchi, wheezes Cardiovascular exam: PRESENT: RRR. ABSENT: diastolic murmur, rubs, systolic murmur GI/Abdominal exam: PRESENT: normal bowel sounds, soft. ABSENT: distended, guarding, mass, organolmegaly, rebound, tenderness Extremities exam: PRESENT: other - Very minimal erythema of left great toe Neurological exam: PRESENT: alert, awake, oriented to person, oriented to place, oriented to time, oriented to situation Psychiatric exam: PRESENT: appropriate affect, normal mood Skin exam: PRESENT: dry, intact, warm Results Laboratory Results: WBC 4.2 10^3/uL (4.0-10.5) 11/20/19 06:03 RBC 3.76 10^6/uL (4.35-5.55) L 11/20/19 06:03 Hgb 12.2 g/dL (13.5-17.0) L 11/20/19 06:03 Hct 35.1 % (37.9-51.0) L 11/20/19 06:03 MCV 93 fl (80-97) 11/20/19 06:03 MCH 32.5 pg (27.0-33.4) 11/20/19 06:03 MCHC 34.8 g/dL (32.0-36.0) 11/20/19 06:03 RDW 14.0 % (11.5-14.0) 11/20/19 06:03 Plt Count 119 10^3/uL (150-450) L 11/20/19 06:03 Lymph % (Auto) 18.1 % (13-45) 11/18/19 14:58 [place] % (Auto) 9.1 % (3-13) 11/18/19 14:58 Eos % (Auto) 3.5 % (0-6) 11/18/19 14:58 Baso % (Auto) 0.5 % (0-2) 11/18/19 14:58 Absolute Neuts (auto) 5.9 10^3/uL (1.7-8.2) 11/18/19 14:58 Absolute Lymphs (auto) 1.5 10^3/uL (0.5-4.7) 11/18/19 14:58 Absolute Monos (auto) 0.8 10^3/uL (0.1-1.4) 11/18/19 14:58 Absolute Eos (auto) 0.3 10^3/uL (0.0-0.6) 11/18/19 14:58 Absolute Basos (auto) 0.0 10^3/uL (0.0-0.2) 11/18/19 14:58 Seg Neutrophils % 68.8 % (42-78) 11/18/19 14:58 PT 17.9 SEC (11.4-15.4) H 11/18/19 14:58 INR 1.46 11/18/19 14:58 VBG pH 7.21 (7.30-7.42) L 11/18/19 14:58 VBG pCO2 59.8 mmHg (35-63) 11/18/19 14:58 VBG HCO3 23.6 mmol/L (20-32) 11/18/19 14:58 VBG Base Excess -5.4 mmol/L 11/18/19 14:58 Sodium 138.9 mmol/L (137-145) 11/20/19 06:03 Potassium 4.9 mmol/L (3.6-5.0) 11/20/19 06:03 Chloride 104 mmol/L (98-107) 11/20/19 06:03 Carbon Dioxide 30 mmol/L (22-30) 11/20/19 06:03 Anion Gap 5 (5-19) 11/20/19 06:03 BUN 15 mg/dL (7-20) 11/20/19 06:03 Creatinine 1.52 mg/dL (0.52-1.25) H 11/20/19 06:03 Est GFR ( Amer) 55 (>60) L 11/20/19 06:03 Est GFR (MDRD) Non-Af 45 (>60) L 11/20/19 06:03 Glucose 95 mg/dL (75-110) 11/20/19 06:03 POC Glucose 105 mg/dL (70-110) 11/18/19 14:58 Lactic Acid 0.9 mmol/L (0.7-2.1) 11/18/19 23:30 Calcium 8.8 mg/dL (8.4-10.2) 11/20/19 06:03 Magnesium 2.2 mg/dL (1.6-2.3) 11/20/19 06:03 Total Bilirubin 0.6 mg/dL (0.2-1.3) 11/18/19 14:58 Direct Bilirubin 0.3 mg/dL (0.0-0.4) 11/18/19 14:58 Neonat Total Bilirubin Not Reportable 11/18/19 14:58 Neonat Direct Bilirubin Not Reportable 11/18/19 14:58 Neonat Indirect Bili Not Reportable 11/18/19 14:58 AST 24 U/L (17-59) 11/18/19 14:58 ALT 18 U/L (<50) 11/18/19 14:58 Alkaline Phosphatase 55 U/L (38-126) 11/18/19 14:58 Troponin I < 0.012 ng/mL 11/18/19 14:58 Total Protein 6.0 g/dL (6.3-8.2) L 11/18/19 14:58 Albumin 3.5 g/dL (3.5-5.0) 11/18/19 14:58 Triglycerides 139 mg/dL (<150) 11/19/19 09: Cholesterol 107.45 mg/dL (0-200) 11/19/19 09:27 LDL Cholesterol Direct 52 mg/dL (<100) 11/19/19 09: VLDL Cholesterol 28.0 mg/dL (10-31) 11/19/19 09: HDL Cholesterol 35 mg/dL (>40) L 11/19/19 09: TSH 1.25 uIU/mL (0.47-4.68) 11/19/19 09: Urine Color YELLOW 11/18/19 20:00 Urine Appearance SLIGHTLY-CLOUDY 11/18/19 20:00 Urine pH 5.0 (5.0-9.0) 11/18/19 20:00 Ur Specific [place] 1.009 11/18/19 20:00 Urine Protein NEGATIVE mg/dL (NEGATIVE) 11/18/19 20:00 Urine Glucose (UA) NEGATIVE mg/dL (NEGATIVE) 11/18/19 20:00 Urine Ketones NEGATIVE mg/dL (NEGATIVE) 11/18/19 20:00 Urine Blood NEGATIVE (NEGATIVE) 11/18/19 20:00 Urine Nitrite (Reflex) NEGATIVE (NEGATIVE) 11/18/19 20:00 Urine Bilirubin NEGATIVE (NEGATIVE) 11/18/19 20:00 Urine Urobilinogen NEGATIVE mg/dL (<2.0) 11/18/19 20:00 Leukocyte Esterase Rfl NEGATIVE (NEGATIVE) 11/18/19 20:00 Urine RBC (Auto) 1 /HPF 11/18/19 20:00 U Hyaline Cast (Auto) 28 /LPF 11/18/19 20:00 Urine Bacteria (Auto) TRACE /HPF 11/18/19 20:00 Urine WBC (Reflex) 2 /HPF 11/18/19 20:00 Squamous Epi Cells Auto <1 /HPF 11/18/19 20:00 Urine Mucus (Auto) OCC /LPF 11/18/19 20:00 Urine Ascorbic Acid NEGATIVE (NEGATIVE) 11/18/19 20:00 11/18/19 14:58 Troponin I < 0.012 Impressions: Chest X-Ray 11/18/19 17:20 IMPRESSION: NO ACUTE RADIOGRAPHIC FINDING IN THE CHEST. Toe X-Ray 11/18/19 17:20 IMPRESSION: No evidence of osteomyelitis. Re- demonstration of 1st metatarsophalangeal joint degenerative changes. Plan Plan of Treatment: Follow-up with PCP Follow-up with podiatry Hold lisinopril for 1 week and then discuss restarting with PCP Continue oral hydration Time Spent: Greater than 30 Minutes Stroke Is this a Stroke Patient?: No Acute Heart Failure Is this a Heart Failure Patient?: No
[2019-11-20] MEDS ORDERED: DILTIAZEM HCL 30 MG TABLET PO SCH (12:00)
[2019-11-20 12:13] VITALS: BP 143/78
== END 2019-11-20 12:20 | disposition home or self-care (01) | DRG 683 ==
LOC: ER 14:01 → EH 20:04 → 4S 22:24
PROVIDERS: ADMIT Emergency Medicine; ATTEND Internal Medicine
DX: N17.9 Acute kidney failure, unspecified (principal); I13.0 Hypertensive heart and chronic kidney disease with heart failure and stage 1 through stage 4 chronic kidney disease, or unspecified chronic kidney disease; T36.8X5A Adverse effect of other systemic antibiotics, initial encounter; E86.0 Dehydration; J44.9 Chronic obstructive pulmonary disease, unspecified; N18.30 Chronic kidney disease, stage 3 unspecified; I50.9 Heart failure, unspecified; I25.10 Atherosclerotic heart disease of native coronary artery without angina pectoris; I48.91 Unspecified atrial fibrillation; F43.10 Post-traumatic stress disorder, unspecified; I49.8 Other specified cardiac arrhythmias; Z87.39 Personal history of other diseases of the musculoskeletal system and connective tissue; Z86.010 Personal history of colon polyps; M19.90 Unspecified osteoarthritis, unspecified site; Z86.14 Personal history of Methicillin resistant Staphylococcus aureus infection; Z95.810 Presence of automatic (implantable) cardiac defibrillator; Z87.891 Personal history of nicotine dependence; Z79.899 Other long term (current) drug therapy; Z88.6 Allergy status to analgesic agent; Z88.7 Allergy status to serum and vaccine
CPT/HCPCS: 36415; 71046; 80048; 80053; 80061; 81001; 82803; 82962; 83605; 83735; 84443; 84484; 85025; 85027; 85610; 87040; 93005; 93010; 94640; 96360; 99285; A9270-GY; J1642; J2270; J3490; J7030; J7120; J7614; J7644

== ENCOUNTER 2020-01-08 18:28 | Emergency (ER) | payer MEDICARE, OTHER ==
[2020-01-08 18:51] VITALS: BP 109/72
[2020-01-08] MEDS ORDERED: HYDROCODONE/ACETAMINOPHEN 5-325 MG TABLET PO ONE (20:18)
--- NOTE | 2020-01-08 20:20 | ER Document Report ---
ED Medical Screen (RME) - General Chief Complaint: Neck Pain < 24hrs old Stated Complaint: NECK PAIN Time Seen by Provider: 01/08/20 20:15 Primary Care Provider: LUZ COX DO [Primary Care Provider] - Follow up as needed Mode of Arrival: Medic Information source: Patient Notes: Patient presents complaining of neck pain since around 4 PM today. Patient denies any injury. Patient denies any fever. Patient states that he is not able to move his neck. Patient does report a significant cardiac history including A. fib, V. tach, CAD and Brugada syndrome. Patient does have an ICD. I have greeted and performed a rapid initial assessment of this patient. A comprehensive ED assessment and evaluation of the patient, analysis of test results and completion of the medical decision making process will be conducted by additional ED providers. TRAVEL OUTSIDE OF THE [place] IN LAST 30 DAYS: No - Related Data Allergies/Adverse Reactions: ibuprofen [Ibuprofen] Allergy (Unknown, Verified 01/08/20 19:00) Influenza Virus Vaccines [Influenza Virus Vaccine] Allergy (Verified 01/08/20 19:00) Home Medications: flexiril, gabapentin, zoloft, metoprolol Past Medical History - Social History Frequency of alcohol use: None Drug Abuse: None - Past Medical History Cardiac Medical History: Reports: Hx Atrial Fibrillation, Hx Congestive Heart Failure, Hx Coronary Artery Disease, Hx Heart Attack, Hx Hypertension Pulmonary Medical History: Reports: Hx Asthma, Hx COPD, Hx Pneumonia Denies: Hx Bronchitis Neurological Medical History: Denies: Hx Cerebrovascular Accident, Hx Seizures Endocrine Medical History: Denies: Hx Diabetes Mellitus Type 1, Hx Diabetes Mellitus Type 2, Hx Hyperthyroidism, Hx Hypothyroidism Renal/ Medical History: Reports: Hx Benign Prostatic Hyperplasia. Denies: Hx Peritoneal Dialysis GI Medical History: Denies: Hx Cirrhosis, Hx Hepatitis, Hx Hiatal Hernia, Hx Ulcer Musculoskeltal Medical History: Reports Hx Arthritis - Chronic pain, Denies Hx Fibromyalgia, Denies Hx Gout, Reports Hx Musculoskeletal Trauma Skin Medical History: Denies Hx Eczema, Denies Hx Psoriasis Psychiatric Medical History: Reports: Hx Depression, Hx Post Traumatic Stress Disorder Traumatic Medical History: Reports: Hx Traumatic Brain Injury Infectious Medical History: Reports: Hx MRSA - Osteomyelitis. Denies: Hx Hepatitis Past Surgical History: Reports: Hx Adenoidectomy, Hx Cardiac Surgery - Defib, Hx Herniorrhaphy, Hx Internal Defibrillator - AICD placement, replaced battery x3, Hx Orthopedic Surgery - Right knee, right hand, right foot, Hx Tonsillectomy - With adenoidectomy, Other - Colonoscopy with polypectomy. Denies: Hx Open Heart Surgery, Hx Pacemaker - Immunizations Hx Diphtheria, Pertussis, Tetanus Vaccination: Yes Physical Exam - Vital signs Vitals: Temp Pulse Resp BP Pulse Ox 97.5 F 65 20 109/72 98 01/08/20 18:49 01/08/20 18:49 01/08/20 18:49 01/08/20 18:49 01/08/20 18:49 - Notes Notes: Cervical midline tenderness, tenderness increases with movement of neck Course - Vital Signs Vital signs: Temp Pulse Resp BP Pulse Ox 97.5 F 65 20 109/72 98 01/08/20 18:49 01/08/20 18:49 01/08/20 18:49 01/08/20 18:49 01/08/20 18:49 Doctor's Discharge - Discharge Referrals: LUZ COX DO [Primary Care Provider] - Follow up as needed
--- NOTE | 2020-01-08 20:50 | RADIOLOGY REPORT (SQ) ---
CT CERVICAL SPINE WITHOUT IV CONTRAST HISTORY: Neck pain. COMPARISON: None. TECHNIQUE: CT scan of the cervical spine was performed without IV contrast. This exam was performed according to our departmental dose-optimization program, which includes automated exposure control, adjustment of the mA and/or kV according to patient size and/or use of iterative reconstruction technique. FINDINGS: No acute cervical fracture or prevertebral soft tissue swelling is seen. There is straightening of the normal cervical lordosis, which may be due to cervical collar, muscle spasm, or patient positioning. There is multilevel degenerative disc disease as well as facet DJD throughout the cervical spine. The spinal canal is poorly visualized due to artifact. IMPRESSION: No acute fracture or subluxation of the cervical spine.
== END 2020-01-08 23:50 | disposition left against medical advice (07) ==
LOC: ER 18:28
DX: M54.2 Cervicalgia (principal); I48.91 Unspecified atrial fibrillation; I25.10 Atherosclerotic heart disease of native coronary artery without angina pectoris; Z88.8 Allergy status to other drugs, medicaments and biological substances; Z79.899 Other long term (current) drug therapy; I11.0 Hypertensive heart disease with heart failure; I50.9 Heart failure, unspecified; J44.9 Chronic obstructive pulmonary disease, unspecified; Z53.20 Procedure and treatment not carried out because of patient's decision for unspecified reasons
CPT/HCPCS: 99281; 72125; A9270